=== PATIENT | female | born 1985 | race Caucasian/White ===

== ENCOUNTER 2020-03-05 13:33 | Outpatient (REF) | payer MEDICAID, SELFPAY | END 2020-03-05 13:34 | disposition home or self-care (01) | LOC: HO.LAB 13:33 | PROVIDERS: PCP Nurse Practitioner Family; Visit Provider Internal Medicine | DX: Z20.828 Contact with and (suspected) exposure to other viral communicable diseases (principal) | CPT/HCPCS: C9803; U0003 ==

== ENCOUNTER 2020-11-25 16:01 | Emergency (ER) | payer MEDICAID, SELFPAY ==
--- NOTE | ~2020-11-25 | CT_ITS ---
EXAMINATION: CT ABDOMEN AND PELVIS WITHOUT CONTRAST CLINICAL INFORMATION: Flank pain. UTI. Question kidney stones. COMPARISON: None TECHNIQUE: Multidetector volumetric imaging was performed from the superior aspect of the liver through the pubic symphysis. Sagittal and coronal reformatted images were obtained on the technologist's workstation. This CT examination was performed using dose optimization techniques as appropriate, variously including the following: *Automated exposure control *Adjustment of mA and/or kV according to patient size (this includes techniques or standardized protocols for targeted exams where dose is matched to indication/reason for exam; i.e. extremities or head) *Use of iterative reconstruction technique DLP: 644 mGy-cm FINDINGS: LUNG BASES: The visualized lung bases are unremarkable. LIVER, GALLBLADDER, AND BILIARY TREE: Relative hypoattenuation of the hepatic parenchyma is consistent with steatosis. The liver has a normal contour. No focal lesions are identified on this unenhanced study. No biliary ductal dilatation. PANCREAS: Unremarkable. SPLEEN: Unremarkable. ADRENAL GLANDS: Unremarkable. KIDNEYS AND URETERS: There are numerous punctate renal calculi in both kidneys with well-defined calcifications along the renal pyramids, concerning for early changes of medullary calcinosis. These calculi measure 1 to 2 mm in diameter . No appreciable hydronephrosis or hydroureter. There is mild peripelvic fat stranding at the left kidney. No significant perinephric fat surrounding. Kidneys are normal in size with normal cortical thickness. No focal renal lesions are identified. BLADDER: Decompressed. GASTROINTESTINAL TRACT: Stomach, small bowel, and colon are normal in caliber. No bowel wall thickening. Appendix is normal. No intra-articular free fluid or free air. ABDOMINAL WALL: No significant hernia is appreciated. LYMPH NODES: There are multiple bilateral enlarged pelvic lymph nodes, measuring up to 2 cm in diameter at the right pelvic sidewall (image 74 of series 3) and 1.7 cm at the left. There is a 1.2 cm left common iliac node. Multiple smaller subcentimeter mesenteric and retroperitoneal nodes are identified. VASCULAR: Unremarkable. PELVIC VISCERA: IUD is present in the endometrial canal. There is a left side Essure device. No adnexal lesions are identified. A surgical clip is present in the left in the pelvis. OSSEOUS STRUCTURES: No acute osseous abnormalities. 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 CT/CT abdomen pelvis wo con IMPRESSION: 1. Numerous punctate bilateral renal calculi with renal medullary calcifications, raising the possibility of medullary nephrocalcinosis. No appreciable obstructing stones. 2. Mild peripancreatic stranding at the left renal pelvis which could be due to a recently passed stone. A urinary tract infection could also produce this appearance. 3. Multiple bilateral enlarged pelvic lymph nodes 4. Hepatic steatosis.
[2020-11-25 17:26] VITALS: BP 127/80; PULSE 84; RESP 18; TEMP 36.1; O2SAT 98; BMI 35.9
[2020-11-25 17:47] LABS: Glucose, Whole Blood 160 mg/dL (60-115)
[2020-11-25 18:44] LABS: MANUAL DIFF FLAG NO
[2020-11-25 18:46] LABS: Basophils Percent Auto 0.3 % (0-2); Eosinophils Absolute Auto 0.1 X10*3/uL (0.0-0.4); Hematocrit 43.1 % (37-47); Hemoglobin 14.9 g/dl (12.0-16.0); Imm Gran Abs Auto 0.03 X10*3/uL (0.00-0.03); Imm Gran Pct Auto 0.3 % (0.0-0.4); Lymphocytes Absolute Auto 1.4 X10*3/uL (1.2-4.9); Lymphocytes Percent Auto 15.8 % (20-40); Mean Corpuscular HGB Conc 34.6 g/dl (31.0-35.0); Mean Corpuscular Hemoglobin 32.1 pg (27.0-33.0); Mean Corpuscular Volume 92.9 fL (80-98); Monocytes Absolute Auto 0.6 X10*3/uL (0.1-1.2); Monocytes Percent Auto 7.1 % (2-11); Neutrophils Absolute Auto 6.5 X10*3/uL (2.0-8.3); Neutrophils Percent Auto 75.5 % (45-73); Platelet Count 267 X10*3/uL (160-400); Red Blood Count 4.64 X10*6/uL (4.20-5.50); Red Cell Distribution Width 12.2 % (11.0-16.0); White Blood Count 8.6 X10*3/uL (4.8-10.8)
[2020-11-25 18:47] LABS: Appearance Urine HAZY; Color Urine YELLOW; Glucose Urine UA NEG (NEG); Leukocyte Esterase Urine 3+ (NEG); Nitrite Urine NEG (NEG); Specific Gravity - Urine 1.015 (1.005-1.025); UACC Culture Trigger YES; Urine Blood 2+ (NEG); Urine Ketones 5 MG/DL (NEG); Urine Protein 1+ MG/DL (NEG-TRACE)
[2020-11-25 18:49] LABS: UPreg QC Valid YES; Urine Pregnancy NEGATIVE (NEGATIVE)
[2020-11-25 18:53] LABS: Bacteria Urine 2+ /LPF
[2020-11-25 19:22] LABS: Alanine Aminotransferase 42 U/L (0-31); Albumin Level 4.1 g/dL (3.5-5.0); Alkaline Phosphatase 72 U/L (39-117); Anion Gap 16 (12-20); Aspartate Amino Transferase 30 U/L (5-31); Bilirubin Total 0.7 mg/dL (0.0-1.0); Blood Urea Nitrogen 13 mg/dL (9-16); Calcium 9.3 mg/dL (8.4-10.2); Carbon Dioxide 26 mmol/L (22-29); Chloride 101 mmol/L (96-108); Creatinine Clr Calc Pharmacy 94.8; Estimated Glomerular Filt Rate > 60; Glucose Random 242 mg/dL (60-115); Potassium 3.6 mmol/L (3.3-5.1); Sodium 139 mmol/L (135-145); Total Protein 6.9 g/dL (6.5-8.0)
--- NOTE | 2020-11-25 19:35 | ED.FEMALEGU ---
HPI - Female Genitourinary General Chief complaint: Urogenital-Female Stated complaint: kidney infection Time Seen by Provider: 11/25/20 22:12 Source: patient Mode of arrival: ambulatory Limitations: no limitations History of Present Illness HPI Narrative: Patient presents to the ED for neck flank pain, dysuria, and vomiting. Patient recently diagnosed with UTI this past Wednesday on Macrobid and states 2 days after she had nausea and vomiting and flank pain and her PCP told to come to the ED for further evaluation. Patient admits to history of kidney stones in the past. Patient states present she feels better and not in any distress. MD elicited complaint: dysuria and UTI Related Data Previous Rx's Medication Instructions Recorded cefpodoxime 200 mg tablet 200 mg PO BID 10 Days #20 tab 11/25/20 naproxen 500 mg tablet 500 mg PO BID PRN #20 tab 11/25/20 Allergies Allergy/AdvReac Type Severity Reaction Status Date / Time No Known Allergies Allergy Verified 11/25/20 17:25 [No Known Allergies*] Review of Systems Review of Systems: Yes all other systems are reviewed and are negative Constitutional: Constitutional: Reports as per HPI and Reports no additional constitutional complaints Eyes: Eyes: Reports as per HPI and Reports no additional eye complaints ENT: Reports system reviewed and no additional complaints, except as documented and Reports as per HPI Cardiovascular: Cardiovascular: Reports as per HPI and Reports no additional cardiovascular complaints Respiratory: Respiratory: Reports as per HPI and Reports no additional respiratory complaints Gastrointestinal: Gastrointestinal: Reports as per HPI, Reports no additional gastrointestinal complaints, Reports abdominal pain (Left flank pain), Reports nausea (Resolved) and Reports vomiting (Resolved) Genitourinary: Genitourinary: Reports dysuria Comments: Diagnosis UTI Musculoskeletal: Musculoskeletal: Reports back pain (Flank pain) Neurologic: Reports system reviewed and no additional complaints, except as documented and Reports as per HPI Psychiatric: Psychiatric: Reports no additional psychiatric complaints and Reports as per HPI [facility] Past Medical History Medical History (Updated 11/25/20 @ 22:20 by SHAHRZAD Wallace) Diabetes Social History Social History Advance Directives: No Advance Directives Information Provided: Yes Patient : No Physical Exam Vital Signs: Vital Signs: Last Vital Signs Temp 100.0 F 11/25/20 20:06 Pulse 92 11/25/20 20:06 Resp 16 08/02/21 20:06 BP 118/74 11/25/20 20:06 Pulse Ox 98 11/25/20 20:06 Body Mass Index 35.9 Const: General: cooperative, healthy appearing, comfortable, no acute distress, well developed, alert and awake Orientation/consciousness: patient oriented x3 HENMT: Head: Yes normal to inspection, Yes No palpable skull fracture present, Yes normocephalic, Yes atraumatic and No abrasion Ears: hearing grossly normal bilaterally and external ears normal Eyes: General: appearance normal, both eyes and all related structures Neck: Neck: Yes normal visual inspection and Yes full ROM Chest: Chest palpation & inspection: normal inspection of the chest and normal palpation of entire chest wall Resp: Effort & Inspection: normal respiratory effort and able to speak in complete sentences Cardio: Jugular venous distension: no JVD Heart sounds: S1 normal heart sound present and S2 normal heart sound present GI: Inspection: Yes normal to inspection and No abdominal wall ecchymosis Palpation (GI): Soft to palpation, not firm, nontender, no guarding and not rigid : General: No CVA tenderness and Yes no CVA tenderness Back/Spine/Pelvis: Back: no CVA tenderness, No CVA tenderness and No back tenderness Skin: General skin exam: no rashes or lesions noted and elasticity normal Neuro: General: patient oriented x3, gait normal and CN's II-XI intact bilaterally Cranial nerves: Yes CN's II-XII intact bilaterally Extrem: General: Yes normal to inspection and Yes full ROM Course Course Course Narrative: Patient had a rapid medical screening done. Reevaluation(s) Reevaluation #1: Patient is not any distress. Negative failure white blood cell count per urine shows UTI. Was sent for CT abdomen to check for kidney stone. Presently patient on any distress watching television. Time: 07:59 Reevaluation #2: Patient negative for white blood cell count. CT scan negative for any ureteral stone. CT scan states she might have passed the stones. Patient will be discharged with cefuroxime. Mild pyelonephritis Time: 22:16 Reevaluation #3: Went to the room to discuss results with patient and she was no longer in the room. Nurse states patient eloped. Discharge papers were already prepared. Patient eloped before receiving discharge papers and prescriptions. Time: 22:18 MDM - Female Genitourinary MDM Narrative Medical decision making narrative: UTI. Mild pyelonephritis Lab Data Result diagrams: 11/25/20 18:41 11/25/20 18:41 Labs: Lab Results 11/25/20 11/25/20 11/25/20 Range/Units 17:28 18:40 18:40 WBC (4.8-10.8) X10*3/uL RBC (4.20-5.50) X10*6/uL Hgb (12.0-16.0) g/dl Hct (37-47) % MCV (80-98) fL MCH (27.0-33.0) pg MCHC (31.0-35.0) g/dl RDW (11.0-16.0) % Plt Count (160-400) X10*3/uL MPV (9.4-12.3) fL Immature Gran % (Auto) (0.0-0.4) % Neut % (Auto) (45-73) % Lymph % (Auto) (20-40) % [place] % (Auto) (2-11) % Eos % (Auto) (0-4) % Baso % (Auto) (0-2) % Lymph # (Auto) (1.2-4.9) X10*3/uL [place] # (Auto) (0.1-1.2) X10*3/uL Eos # (Auto) (0.0-0.4) X10*3/uL Baso # (Auto) (0.0-0.2) X10*3/uL Abs Immat Gran (auto) (0.00-0.03) X10*3/uL Absolute Neuts (auto) (2.0-8.3) X10*3/uL Absolute Nucleated RBC (0.0-0.012) X10*3/uL Nucleated RBC % (auto) (0.0-0.2) /100WBC Sodium (135-145) mmol/L Potassium (3.3-5.1) mmol/L Chloride (96-108) mmol/L Carbon Dioxide (22-29) mmol/L Anion Gap (12-20) BUN (9-16) mg/dL Creatinine (0.5-1.4) mg/dL Estim Creat Clear Calc Estimated GFR POC Glucose 160 H (60-115) mg/dL Random Glucose (60-115) mg/dL Calcium (8.4-10.2) mg/dL Total Bilirubin (0.0-1.0) mg/dL AST (5-31) U/L ALT (0-31) U/L Alkaline Phosphatase (39-117) U/L Total Protein (6.5-8.0) g/dL Albumin (3.5-5.0) g/dL Urine Color YELLOW Urine Appearance HAZY Urine pH 6.0 (5.0-8.0) Ur Specific [place] 1.015 (1.005-1.025) Urine Protein 1+ H (NEG-TRACE) MG/DL Urine Glucose (UA) NEG (NEG) MG/DL Urine Ketones 5 (NEG) MG/DL Urine Blood 2+ H (NEG) Urine Nitrite NEG (NEG) Ur Leukocyte Esterase 3+ H (NEG) Urine RBC 1-4 (0) /HPF Urine WBC 15-29 H (0-4) /HPF Ur Squamous Epith Cells NONE /LPF Urine Bacteria 2+ /LPF Urine Test NEGATIVE (NEGATIVE) 11/25/20 11/25/20 Range/Units 18:41 18:41 WBC 8.6 (4.8-10.8) X10*3/uL RBC 4.64 (4.20-5.50) X10*6/uL Hgb 14.9 (12.0-16.0) g/dl Hct 43.1 (37-47) % MCV 92.9 (80-98) fL MCH 32.1 (27.0-33.0) pg MCHC 34.6 (31.0-35.0) g/dl RDW 12.2 (11.0-16.0) % Plt Count 267 (160-400) X10*3/uL MPV 10.0 (9.4-12.3) fL Immature Gran % (Auto) 0.3 (0.0-0.4) % Neut % (Auto) 75.5 H (45-73) % Lymph % (Auto) 15.8 L (20-40) % [place] % (Auto) 7.1 (2-11) % Eos % (Auto) 1.0 (0-4) % Baso % (Auto) 0.3 (0-2) % Lymph # (Auto) 1.4 (1.2-4.9) X10*3/uL [place] # (Auto) 0.6 (0.1-1.2) X10*3/uL Eos # (Auto) 0.1 (0.0-0.4) X10*3/uL Baso # (Auto) 0.0 (0.0-0.2) X10*3/uL Abs Immat Gran (auto) 0.03 (0.00-0.03) X10*3/uL Absolute Neuts (auto) 6.5 (2.0-8.3) X10*3/uL Absolute Nucleated RBC 0.000 (0.0-0.012) X10*3/uL Nucleated RBC % (auto) 0.0 (0.0-0.2) /100WBC Sodium 139 (135-145) mmol/L Potassium 3.6 (3.3-5.1) mmol/L Chloride 101 (96-108) mmol/L Carbon Dioxide 26 (22-29) mmol/L Anion Gap 16 (12-20) BUN 13 (9-16) mg/dL Creatinine 0.81 (0.5-1.4) mg/dL Estim Creat Clear Calc 94.8 Estimated GFR > 60 POC Glucose (60-115) mg/dL Random Glucose 242 H (60-115) mg/dL Calcium 9.3 (8.4-10.2) mg/dL Total Bilirubin 0.7 (0.0-1.0) mg/dL AST 30 (5-31) U/L ALT 42 H (0-31) U/L Alkaline Phosphatase 72 (39-117) U/L Total Protein 6.9 (6.5-8.0) g/dL Albumin 4.1 (3.5-5.0) g/dL Urine Color Urine Appearance Urine pH (5.0-8.0) Ur Specific Chester (1.005-1.025) Urine Protein (NEG-TRACE) MG/DL Urine Glucose (UA) (NEG) MG/DL Urine Ketones (NEG) MG/DL Urine Blood (NEG) Urine Nitrite (NEG) Ur Leukocyte Esterase (NEG) Urine RBC (0) /HPF Urine WBC (0-4) /HPF Ur Squamous Epith Cells /LPF Urine Bacteria /LPF Urine Test (NEGATIVE) Discharge Plan Discharge Clinical Impression: Pyelonephritis Patient Disposition: Home, Self-Care Instructions: Urinary Tract Infection in Women (ED), Kidney Infection (ED) Additional Instructions: Him blood work came back normal. Your urine shows a UTI. CT scan states you might have passed a stone versus mild kidney infection. He will be discharged with stronger antibiotics. Return to the ED for any nausea, vomiting, fever, chills, severe abdominal pain, hematuria, weakness, or any other concerning symptoms. Please follow up with PCP. Prescriptions: New cefpodoxime 200 mg tablet 200 mg PO BID 10 Days Qty: 20 RF: 0 naproxen 500 mg tablet 500 mg PO BID PRN (Reason: pain) Qty: 20 RF: 0 Stand Alone Forms: Work/School Release Interventions: ED Discharge Assessment Last Done: 11/25/20 22:29 Discharge Date/Time: 11/25/20 22:30 Print Language: Bolivian
[2020-11-25 20:06] VITALS: BP 118/74; PULSE 92; RESP 16; TEMP 37.8; O2SAT 98
== END 2020-11-25 22:30 | disposition home or self-care (01) ==
PROVIDERS: Emergency Provider Emergency Medicine
DX: N12 Tubulo-interstitial nephritis, not specified as acute or chronic (principal); E11.9 Type 2 diabetes mellitus without complications
CPT/HCPCS: 36415; 74176; 80053; 81001; 81025; 82947; 85025; 87086; 87088; 87186; 99283; 99284

== ENCOUNTER 2021-11-25 08:18 | Outpatient (REF) | payer MEDICAID, SELFPAY | END 2021-11-25 08:19 | disposition home or self-care (01) | LOC: HO.HOSX 08:18 | PROVIDERS: Visit Provider Physician Assistant | DX: Z13.89 Encounter for screening for other disorder (principal) ==

== ENCOUNTER 2021-12-29 18:06 | Emergency (ER) | payer MEDICAID, SELFPAY ==
[2021-12-29 18:08] VITALS: BP 143/79; PULSE 80; RESP 18; TEMP 36.7; O2SAT 96; BMI 29.6
[2021-12-29 18:15] LABS: MANUAL DIFF FLAG NO
[2021-12-29 18:18] LABS: Basophils Absolute Auto 0.1 X10*3/uL (0.0-0.2); Basophils Percent Auto 0.8 % (0-2); Eosinophils Absolute Auto 0.1 X10*3/uL (0.0-0.4); Hematocrit 41.9 % (37.0-47.0); Hemoglobin 14.1 g/dl (12.0-16.0); Imm Gran Abs Auto 0.01 X10*3/uL (0.00-0.03); Imm Gran Pct Auto 0.2 % (0.0-0.4); Lymphocytes Absolute Auto 1.3 X10*3/uL (1.2-4.9); Lymphocytes Percent Auto 20.7 % (20-40); Mean Corpuscular HGB Conc 33.7 g/dl (31.0-35.0); Mean Corpuscular Hemoglobin 31.7 pg (27.0-33.0); Mean Corpuscular Volume 94.2 fL (80.0-98.0); Mean Platelet Volume 10.6 fL (9.4-12.3); Monocytes Absolute Auto 0.5 X10*3/uL (0.1-1.2); Monocytes Percent Auto 7.3 % (2-11); Neutrophils Absolute Auto 4.3 x10*3/uL (2.0-8.3); Platelet Count 287 X10*3/uL (160-400); Red Blood Count 4.45 X10*6/uL (4.20-5.50); Red Cell Distribution Width 12.3 % (11.0-16.0); White Blood Count 6.1 X10*3/uL (4.8-10.8)
[2021-12-29 18:36] LABS: Alanine Aminotransferase 19 U/L (0-31); Alkaline Phosphatase 39 U/L (39-117); Anion Gap 15 (12-20); Aspartate Amino Transferase 15 U/L (5-31); Bilirubin Total 0.4 mg/dL (0.0-1.0); Blood Urea Nitrogen 11 mg/dL (9-16); Calcium 9.1 mg/dL (8.4-10.2); Carbon Dioxide 23 mmol/L (22-29); Chloride 104 mmol/L (96-108); Estimated Glomerular Filt Rate > 60; Glucose Random 197 mg/dL (60-115); Potassium 4.1 mmol/L (3.3-5.1); Sodium 138 mmol/L (135-145); Total Protein 6.9 g/dL (6.5-8.0)
[2021-12-29] MEDS: Acetaminophen 325 MG TABLET 650 MG PO (19:38)
== END 2021-12-29 21:52 | disposition left against medical advice (07) ==
PROVIDERS: Emergency Provider Emergency Medicine; PCP Nurse Practitioner Family
DX: R10.9 Unspecified abdominal pain (principal); Z87.442 Personal history of urinary calculi
CPT/HCPCS: 36415; 80053; 85025; 99282; 99283

== ENCOUNTER 2022-01-01 09:34 | Emergency (ER) | payer MEDICAID, SELFPAY ==
[2022-01-01 09:50] VITALS: BP 135/78; PULSE 88; RESP 16; TEMP 37.2; O2SAT 99; BMI 28.9
[2022-01-01 10:21] LABS: Appearance Urine Hazy; Color Urine Yellow; Glucose Urine UA Negative (Negative); Leukocyte Esterase Urine Negative (Negative); Nitrite Urine Negative (Negative); Specific Gravity - Urine 1.025 (1.005-1.025); Urine Blood Small (1+) (Negative); Urine Ketones >=80 mg/dL (Negative); Urine Protein 30 (1+) mg/dL (Neg-Trace)
[2022-01-01 10:36] LABS: Bacteria Urine 1+ (None Seen); Hyaline Casts Urine 0-2 /LPF (0-2); Squamous Epithelial Cell Urine >20 /HPF (0-2)
[2022-01-01 12:12] LABS: Glucose, Whole Blood 185 mg/dL (60-115)
[2022-01-01 12:31] LABS: MANUAL DIFF FLAG NO
[2022-01-01 12:39] LABS: Basophils Percent Auto 0.4 % (0-2); Eosinophils Absolute Auto 0.1 X10*3/uL (0.0-0.4); Eosinophils Percent Auto 0.7 % (0-4); Hematocrit 40.3 % (37.0-47.0); Hemoglobin 13.6 g/dl (12.0-16.0); Imm Gran Abs Auto 0.03 X10*3/uL (0.00-0.03); Imm Gran Pct Auto 0.4 % (0.0-0.4); Lymphocytes Absolute Auto 1.2 X10*3/uL (1.2-4.9); Lymphocytes Percent Auto 16.9 % (20-40); Mean Corpuscular HGB Conc 33.7 g/dl (31.0-35.0); Mean Corpuscular Hemoglobin 31.9 pg (27.0-33.0); Mean Corpuscular Volume 94.6 fL (80.0-98.0); Mean Platelet Volume 10.6 fL (9.4-12.3); Monocytes Absolute Auto 0.7 X10*3/uL (0.1-1.2); Neutrophils Absolute Auto 5.1 x10*3/uL (2.0-8.3); Neutrophils Percent Auto 71.6 % (45-73); Platelet Count 227 X10*3/uL (160-400); Red Blood Count 4.26 X10*6/uL (4.20-5.50); Red Cell Distribution Width 12.5 % (11.0-16.0); White Blood Count 7.1 X10*3/uL (4.8-10.8)
[2022-01-01 12:42] LABS: Prothrombin Time 11.9 SEC (10.0-13.1)
[2022-01-01 12:51] LABS: Alanine Aminotransferase 14 U/L (0-31); Albumin Level 3.8 g/dL (3.5-5.0); Alkaline Phosphatase 44 U/L (39-117); Anion Gap 16 (12-20); Aspartate Amino Transferase 11 U/L (5-31); Bilirubin Total 0.5 mg/dL (0.0-1.0); Blood Urea Nitrogen 13 mg/dL (9-16); Calcium 9.1 mg/dL (8.4-10.2); Carbon Dioxide 24 mmol/L (22-29); Chloride 102 mmol/L (96-108); Creatinine Clr Calc Pharmacy 60.6; Estimated Glomerular Filt Rate 54; Glucose Random 204 mg/dL (60-115); Magnesium 1.8 mg/dL (1.6-2.6); Potassium 4.1 mmol/L (3.3-5.1); Sodium 138 mmol/L (135-145); Total Protein 6.6 g/dL (6.5-8.0)
== END 2022-01-01 21:23 | disposition left against medical advice (07) ==
PROVIDERS: Physician Assistant Medical; Emergency Provider Emergency Medicine; PCP Nurse Practitioner Family
DX: R10.32 Left lower quadrant pain (principal); R31.9 Hematuria, unspecified; Z79.899 Other long term (current) drug therapy
CPT/HCPCS: 36415; 80053; 81001; 82947; 83735; 85025; 85610; 99282; 99283

== ENCOUNTER 2022-03-24 11:21 | Outpatient (REF) | payer MEDICAID, SELFPAY ==
[2022-03-24 12:02] LABS: COVID-19 Test Positive (Negative); IDNOW Serial# 9DB6401D
== END 2022-03-24 11:22 | disposition home or self-care (01) ==
LOC: HO.LAB 11:21
PROVIDERS: Visit Provider Internal Medicine
DX: Z20.822 Contact with and (suspected) exposure to COVID-19 (principal)
CPT/HCPCS: 87635; C9803

== ENCOUNTER 2022-03-30 10:11 | Outpatient (REF) | payer MEDICAID, SELFPAY ==
[2022-03-30 10:56] LABS: COVID-19 Test Negative (Negative); IDNOW Serial# BCCEAD1C
== END 2022-03-30 10:12 | disposition home or self-care (01) ==
LOC: HO.LAB 10:11
PROVIDERS: Visit Provider Internal Medicine
DX: Z20.822 Contact with and (suspected) exposure to COVID-19 (principal)
CPT/HCPCS: 87635; C9803

== ENCOUNTER 2022-07-21 18:07 | Outpatient (REF) | payer MEDICAID, SELFPAY ==
--- NOTE | ~2022-07-21 | MR_ITS ---
EXAMINATION: MR KNEE WITHOUT CONTRAST, RIGHT CLINICAL INFORMATION: Right knee pain, swelling, numbness with walking and weightbearing following injury in May 2022. Evaluate for meniscal tear or internal derangement. COMPARISON: Most recent right knee radiographs dated 04/06/2018. TECHNIQUE: MRI of the knee without contrast was performed using routine sequences on a high-field scanner. FINDINGS: MENISCI: Medial Meniscus: Intact. Lateral Meniscus: Intact. LIGAMENTS: Cruciate: Intact Collateral: Minimal edema adjacent to the distal aspect of the medial collateral ligament which could indicate a minimal grade 1 sprain. Intact fibular collateral ligament. EXTENSOR MECHANISM: Intact quadriceps and patellar tendons. Normal patellofemoral alignment. ARTICULAR CARTILAGE/BONE: Patellofemoral Compartment: Medial trochlea articular cartilage signal heterogeneity with full-thickness fissuring superiorly and mild subchondral cystic change/marrow edema. Articular cartilage signal heterogeneity at the inferior aspect of the medial patellar facet extending centrally. Tiny marginal osteophytes. Medial Compartment: Weightbearing articular cartilage thinning with minimal signal heterogeneity and tiny marginal osteophytes. Lateral Compartment: Intact articular cartilage. JOINT FLUID AND BURSAE: Small joint effusion and trace Bowling's cyst. MR/MR knee RT wo con IMPRESSION: 1. No acute meniscal or ligamentous injury. 2. Possible minimal grade 1 sprain of the medial collateral ligament. 3. 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 Small joint effusion and trace Bowling's cyst.
== END 2022-07-21 18:08 | disposition home or self-care (01) ==
LOC: HO.MRI 18:07
PROVIDERS: PCP Nurse Practitioner Family; Visit Provider Emergency Medicine
DX: S89.91XA Unspecified injury of right lower leg, initial encounter (principal); X58.XXXA Exposure to other specified factors, initial encounter; Y93.9 Activity, unspecified; Y92.9 Unspecified place or not applicable; Y99.9 Unspecified external cause status
CPT/HCPCS: 73721

== ENCOUNTER 2022-07-29 11:58 | Outpatient (REF) | payer MEDICAID, SELFPAY ==
--- NOTE | ~2022-07-29 | XR_ITS ---
EXAMINATION: XR KNEE, LEFT CLINICAL INFORMATION: Reason for Exam left knee instability with popping out COMPARISON: None TECHNIQUE: 4 views of the knee FINDINGS: No acute fracture or dislocation. Minimal degenerative changes of the knee with spurring of the tibial spines and tiny patellofemoral osteophyte.. No joint effusion. Soft tissues are unremarkable. XR/XR knee LT 4V IMPRESSION: * No acute osseous abnormality. * Minimal degenerative changes of the knee.
== END 2022-07-29 11:59 | disposition home or self-care (01) ==
LOC: HO.XRAY 11:58
PROVIDERS: Absent Provider Nurse Practitioner Family; PCP Nurse Practitioner Family; Visit Provider Emergency Medicine
DX: M25.562 Pain in left knee (principal)
CPT/HCPCS: 73564

== ENCOUNTER 2022-12-11 | Outpatient (REF) | payer MEDICAID, SELFPAY | END 2022-12-11 00:01 | disposition home or self-care (01) | LOC: HO.HHCLNP | PROVIDERS: Visit Provider Registered Nurse | DX: Z13.89 Encounter for screening for other disorder (principal) ==

== ENCOUNTER 2022-12-11 18:35 | Outpatient (REF) | payer MEDICAID, SELFPAY | END 2022-12-11 18:36 | disposition home or self-care (01) | LOC: HO.HHCLNP 18:35 | PROVIDERS: Visit Provider Registered Nurse | DX: Z13.89 Encounter for screening for other disorder (principal) | CPT/HCPCS: 81001 ==

== ENCOUNTER 2022-12-14 16:23 | Outpatient (REF) | payer MEDICAID, SELFPAY | END 2022-12-14 16:24 | disposition home or self-care (01) | LOC: HO.HHCL 16:23 | PROVIDERS: Visit Provider Registered Nurse | DX: N12 Tubulo-interstitial nephritis, not specified as acute or chronic (principal) | CPT/HCPCS: 87086 ==

== ENCOUNTER 2023-03-07 15:03 | Emergency (ER) | payer MEDICAID, SELFPAY ==
--- NOTE | ~2023-03-07 | XR_ITS ---
EXAMINATION: XR THORACIC SPINE, 3 VIEWS XR LUMBAR SPINE, 3 VIEWS CLINICAL INFORMATION: Pain fall COMPARISON: None available. TECHNIQUE: 3 views of the thoracic spine 3 views of the lumbar spine FINDINGS: 5 nonrib-bearing lumbar-type vertebral bodies. No acute visible fracture or dislocation. Mild multilevel degenerative changes with disc space narrowing osteophyte formation and slight facet arthropathy. Vertebral body heights and spaces are otherwise maintained. Posterior elements are intact. Paraspinal soft tissues are unremarkable. Right upper abdomen surgical clips. Left fallopian tube occlusion device. Bowel gas is unremarkable. Visualized portions of the chest are unremarkable. XR/XR thoracic spine 2V IMPRESSION: 1. No acute visible fracture or dislocation. 2. Mild multilevel degenerative changes.
--- NOTE | ~2023-03-07 | XR_ITS ---
EXAMINATION: XR THORACIC SPINE, 3 VIEWS XR LUMBAR SPINE, 3 VIEWS CLINICAL INFORMATION: Pain fall COMPARISON: None available. TECHNIQUE: 3 views of the thoracic spine 3 views of the lumbar spine FINDINGS: 5 nonrib-bearing lumbar-type vertebral bodies. No acute visible fracture or dislocation. Mild multilevel degenerative changes with disc space narrowing osteophyte formation and slight facet arthropathy. Vertebral body heights and spaces are otherwise maintained. Posterior elements are intact. Paraspinal soft tissues are unremarkable. Right upper abdomen surgical clips. Left fallopian tube occlusion device. Bowel gas is unremarkable. Visualized portions of the chest are unremarkable. XR/XR lumbar spine 2-3V IMPRESSION: 1. No acute visible fracture or dislocation. 2. Mild multilevel degenerative changes.
[2023-03-07 15:08] VITALS: BP 125/69; PULSE 82; RESP 18; TEMP 36.8; O2SAT 100; BMI 32.1
--- NOTE | 2023-03-07 15:08 | ED_ITS ---
HPI - General Adult General Chief complaint: Back Pain/Injury Stated complaint: back pain s/p fall 03/05 Time Seen by Provider: 03/07/23 15:21 Source: patient Mode of arrival: ambulatory Limitations: no limitations History of Present Illness HPI narrative: patient is a 37-year-old female who presents emergency department for evaluation after a mechanical trip and fall. Reports 2 days ago she was walking down the stairs, she missed a step resulting in a fall backwards striking her back against the stairs. She has pain diffusely across the upper back predominately between the shoulder blades worsened with movement of the arms, and diffuse lower back pain that is nonradiating. She denies any head strike or loss. Denies fevers, chills, burning with micturition, urinary frequency/urgency/hesitancy, bladder or bowel dysfunction, numbness or tingling of the perineum or bilateral legs. Denies any recent surgical procedures, any known immune compromising conditions, personal history of cancer, or IV drug usage. She has trialed ibuprofen, Voltaren, topical lidocaine with massage which does alleviate her pain somewhat but not completely. Related Data Previous Rx's Medication Instructions Recorded cefpodoxime 200 mg tablet 200 mg PO BID 10 days #20 tabs 11/25/20 naproxen 500 mg tablet 500 mg PO BID PRN pain #20 tabs 11/25/20 cyclobenzaprine 10 mg tablet 10 mg PO TID PRN muscle spasm #14 03/07/23 tabs Allergies Allergy/AdvReac Type Severity Reaction Status Date / Time No Known Allergies Allergy Verified 11/25/20 17:25 [No Known Allergies*] Review of Systems Review of Systems: Yes all other systems are reviewed and are negative [facility] Past Medical History Attestation statement: The following information was validated with the patient. Source: old records reviewed Medical History Diabetes Social History Social History Advance Directives: No Physical Exam ED Vital Signs: Vital Signs - 24 hr 03/07/23 15:08 Temperature 98.2 F Pulse Rate 82 Respiratory Rate 18 Blood Pressure 125/69 Pulse Oximetry 100 Oxygen Delivery Method Room Air BMI result Body Mass Index 32.1 Appearance: Alert.?Oriented to person, place and time. No acute distress.?Normal affect. Eyes: Pupils equal, round and reactive to light.? ENT: Pharynx normal.?? Neck: Normal inspection.? Neck supple.?? CVS: Heart sounds normal. Normal heart rate and rhythm.? Pulses normal; bilateral radial pulses 2+, bilateral posterior tibial/dorsalis pedis pulses 2+.? Respiratory: No respiratory distress.? Lung sounds clear to auscultation bilaterally?? Abdomen: Soft and non-tender. Normoactive bowel sounds. No pulsatile mass.?? Skin: Skin warm and dry.? Normal skin color.? Normal skin turgor.?? Extremities: No lower extremity edema.? No calf ttp? Back: + tenderness upon palpation of the thoracic paraspinal muscles, mild paraspinal muscular tenderness from lumbar region to coccyx. No CVA tenderness. No midline spinal tenderness, step-off's, or deformity. Full ROM intact in bilateral lower extremities. Straight leg test negative bilaterally. No rashes, lesions, areas of induration or fluctuance, or signs of infection noted., Neuro: Moves all extremities spontaneously. 5/5 strength in hip extension/flexion, abduction, adduction. Sensation to light touch intact bilaterally. Patellar and Achilles reflex 2+ bilaterally. No ataxia, gait normal and steady.. No focal neuro deficits. Course Course Course Narrative: RME performed by Sanjuana Spann PA-C. Patient is a 37 year old assigned female at presenting to the emergency department with back pain after a fall on 03/05/2023. Imaging ordered. Patient placed back in the waiting room pending room availability and results. Medications Administered Discontinued Medications Generic Name Dose Route Start Last Admin Trade Name Freq PRN Reason Stop Dose Admin Cyclobenzaprine HCl 10 mg 03/07/23 16:05 03/07/23 16:08 Cyclobenzaprine Hcl 10 Mg Tablet PO 03/07/23 16:06 10 mg ONCE ONE Administration Medical Decision Making Medical Decision Making MDM Narrative: Patient is a 37-year-old female who presents emergency department for evaluation of traumatic thoracic and lumbar back pain after fall on the stairs. No head injury or loss of consciousness, no focal neurological deficits. At in, in a suspect that Pain is most consistent with muscular pain, although cannot complet judah exclude herniated disc. On neurological exam there are no deficits. Not consistent with spinal fracture, spinal infection, epidural abscess, AAA, epidural abscess, or dissection. No high risk past medical history including incontinence, fever, immunosuppression, recent surgery or lumbar puncture, coagulopathy, recent unintentional weight loss, pulsatile mass, history of cancer, history of TB, history of IV drug use that would warrant MRI or CT. Not consistent with ectopic , pyelonephritis, urinary tract infection, renal calculi, pelvic infection, appendicitis, diverticulitis. On exam no concern for cauda equina syndrome. XR of the thoracic and lumbar spine no evidence of acute fracture or subluxation, mild degenerative disease is present. No additional imaging is currently indicated at this time. Received cyclobenzaprine in the emergency department With significant improvement in pain. Plan for discharge home with Prescription for flex, and follow-up with primary care provider, and patient agreed with plan. Differential Diagnosis Differential Diagnoses: The differential diagnosis associated with the presentation includes (As noted above) Admission/Observation Consideration of admission/observation: Escalation of care including admission/observation considered Independent Interpretation I performed an independent interpretation of an: Plain X-Ray (I personally interpreted XR imaging and agree with radiologist impression.) Interpretation: XR/XR thoracic spine 2V IMPRESSION: 1. No acute visible fracture or dislocation. 2. Mild multilevel degenerative changes. XR/XR lumbar spine 2-3V IMPRESSION: 1. No acute visible fracture or dislocation. 2. Mild multilevel degenerative changes. Independent Historian Clinical information obtained from an independent historian. History obtained from or confirmed by: Spouse (Present at bedside who confirms history) External Record Review External record reviewed: Outpatient record Prescription Management I considered prescription management with: Pain Medication Discharge Plan Discharge Clinical Impression: Thoracic back pain, Strain of lumbar region Patient Disposition: Home, Self-Care Instructions: Acute Low Back Pain (ED), Lower Back Exercises (ED) Additional Instructions: You can take ibuprofen 200 mg, 3 tablets (600mg) every 6-8 hours as needed for pain, in addition to Tylenol 500 mg, 2 tablets (1,000mg) every 4-6 hours as needed for pain, but not to exceed 3 doses daily (3,000mg).? I have sent prescription for the muscle relaxer, cyclobenzaprine / Flexeril to your pharmacy. Take this as needed for pain unrelieved by acetaminophen and ibuprofen. You should not drive, drink alcohol, or work while taking this medication as it may make you drowsy. Continue using ice/heat to the area, massage, and topical creams Contact your primary care provider to arrange for a follow-up visit for persistent symptoms. You may always return back to emergency department any new or worsening symptoms or concerns. Prescriptions: New cyclobenzaprine 10 mg tablet 10 mg PO TID PRN (Reason: muscle spasm) Qty: 14 0RF No Action cefpodoxime 200 mg tablet 200 mg PO BID 10 Days Qty: 20 0RF Rx Instructions: must administer with a meal/food naproxen 500 mg tablet 500 mg PO BID PRN (Reason: pain) Qty: 20 0RF Referrals: [facility] [Primary Care Provider] -
[2023-03-07] MEDS: Cyclobenzaprine HCl 10 MG TABLET PO (16:08)
== END 2023-03-07 17:09 | disposition home or self-care (01) ==
PROVIDERS: Emergency Provider Emergency Medicine Emergency Medical Services
DX: M54.6 Pain in thoracic spine (principal); S39.012A Strain of muscle, fascia and tendon of lower back, initial encounter; W10.8XXA Fall (on) (from) other stairs and steps, initial encounter; E11.9 Type 2 diabetes mellitus without complications; Y93.89 Activity, other specified; Y92.9 Unspecified place or not applicable; Y99.9 Unspecified external cause status
CPT/HCPCS: 72070; 72100; 99283

== ENCOUNTER 2023-03-10 09:51 | Outpatient (REF) | payer MEDICAID, SELFPAY ==
[2023-03-10 12:04] LABS: TSH reflex Free T4 0.92 uIU/mL (0.32-4.0)
== END 2023-03-10 09:52 | disposition home or self-care (01) ==
LOC: HO.HHCL 09:51
PROVIDERS: Visit Provider Advanced Practice Midwife
DX: N92.6 Irregular menstruation, unspecified (principal)
CPT/HCPCS: 36415; 84443

== ENCOUNTER 2023-03-30 10:39 | Outpatient (AMB) | payer MEDICAID, SELFPAY ==
[2023-03-30 10:55] VITALS: BMI 32.1
--- NOTE | 2023-03-30 10:55 | A.OFFVIS_ITS ---
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 The patient describes her pain as sharp and severe in nature. Most of the pain is along the medial aspect of her knee. Patient states that she 1st injured her left knee approximately 1 year ago when she twisted her knee and felt like her knee ?popped out?. She states that her knee will give out several times per day. She has tried Tylenol and anti- inflammatory medicines which gave her minimal relief. She has had injections in the past which gave her no relief. She has also done physical therapy which aggravated her symptoms. Allergies No Known Allergies [No Known Allergies*] Allergy (Verified 11/25/20 17:25) Medication List - Last Reconciled 03/30/23 by Matthew Cervantes MD acetaminophen ER 650 mg PO Q8H PRN bupropion HCl 300 mg PO QAM cefpodoxime 200 mg PO BID 10 days cetirizine 10 mg PO QAM clonidine HCl 0.1 mg PO BEDTIME cyclobenzaprine 10 mg PO TID PRN dulaglutide (Trulicity) 1.5 mg subcut QWEEK escitalopram oxalate 10 mg PO DAILY hydroxyzine HCl 10 mg PO TID PRN levofloxacin 750 mg PO DAILY naproxen 500 mg PO BID PRN PFSH Medical History (Updated 03/30/23 @ 11:36 by Matthew Cervantes MD) Diabetes Surgical History (Updated 03/30/23 @ 10:59 by Sariah Bacon CMA) Hx of breast reduction, elective Social History (Updated 03/30/23 @ 10:59 by Sariah Bacon CMA) Patient Tobacco Use Status: Never used Tobacco Current occupational status: unemployed Physical Exam Vital Signs: BMI result Body Mass Index 32.1 Const Other: Well-nourished well-developed very friendly female awake alert and oriented x3 in no acute distress Extrem Other: Bilateral lower extremity examination shows good capillary refill, no skin lesions noted, normal sensation light touch Left knee examination shows a minimal effusion, minimal crepitus with range of motion, tenderness along her medial joint line, positive Yasmin's test, no instability Results Reviewed Results Reviewed: X-rays of the patient's left knee show minimal joint space narrowing, no acute bony abnormalities Assessment & Plan Assessment & Plan (1) Left knee pain: Code(s): M25.562 - Pain in left knee Plan Ms. Basilio presents with progressively worsening left knee pain and mechanical symptoms most likely due to a tear of her medial meniscus. Thus, I will send the patient for an MRI of her left knee for further evaluation. I will see her back once the MRI is completed to discuss the findings and treatment options. She will continue with her activity modifications in the meantime. I spent 22 minutes in reviewing the patient's records and imaging studies, kirby g the patient and documenting in the medical record. Orders: Orders MR knee LT wo con Today M25.562 - Pain in left knee Coding Level of Care Code New Pt Level 2 (81535) Diagnoses Left knee pain M25.562
== END 2023-03-30 11:36 | disposition home or self-care (01) ==
PROVIDERS: PCP Nurse Practitioner Family; Visit Provider Orthopaedic Surgery
DX: M25.562 Pain in left knee (principal)
CPT/HCPCS: 99202

== ENCOUNTER → 2023-03-30 10:39 | Outpatient (BNVA) | payer MEDICAID, SELFPAY | PROVIDERS: Visit Provider Orthopaedic Surgery | DX: M25.562 Pain in left knee (principal) | CPT/HCPCS: 99202 ==

== ENCOUNTER 2023-05-06 13:35 | Outpatient (REF) | payer MEDICAID, SELFPAY ==
--- NOTE | ~2023-05-06 | MR_ITS ---
EXAMINATION: MR KNEE WITHOUT CONTRAST, LEFT CLINICAL INFORMATION: Left knee pain COMPARISON: Radiographs 07/29/2022 TECHNIQUE: MRI of the knee without contrast was performed using routine sequences on a high-field scanner. FINDINGS: MENISCI: Medial Meniscus: Intact Lateral Meniscus: Intact LIGAMENTS: Cruciate: Chronic complete ACL tear with resorption. The posterior cruciate ligament is intact. Collateral: Intact EXTENSOR MECHANISM: Intact ARTICULAR CARTILAGE/BONE: Patellofemoral Compartment: Normal Medial Compartment: Minimal peripheral cartilage thinning medially with small marginal osteophytes. Lateral Compartment: Focal cartilage irregularity and central osteophyte of the tibia posteriorly. JOINT FLUID AND BURSAE: Trace joint effusion MR/MR knee LT wo con IMPRESSION: 1. Chronic complete ACL tear with resorption. 2. No meniscal tear. 3. Minimal medial and lateral compartment osteoarthritis with a trace joint effusion.
== END 2023-05-06 13:36 | disposition home or self-care (01) ==
LOC: HO.MRI 13:35
PROVIDERS: Visit Provider Orthopaedic Surgery
DX: M25.562 Pain in left knee (principal)
CPT/HCPCS: 73721

== ENCOUNTER 2023-05-18 11:43 | Outpatient (AMB) | payer MEDICAID, SELFPAY ==
[2023-05-18 11:44] VITALS: BMI 32.1
--- NOTE | 2023-05-18 11:44 | A.OFFVIS_ITS ---
Intake Vital Signs 05/18/23 11:44 Height 5 ft 1 in Weight 170 lb BMI 32.1 Intake Visit Reasons: ov-MRI Knee LT review Intake Note: Iraida is a 37 year old female who presents for an MRI review of her Left knee. The patient states that she 1st injured her left knee as a child. She twisted her knee and it felt like ?my knee popped out?. The patient was treated non operatively at that time. The patient states that approximately 1 year ago she had a similar episode when she twisted her knee. She states that her knee feels unstable and like it is going to ?pop out again?. Allergies No Known Allergies [No Known Allergies*] Allergy (Verified 05/18/23 11:45) Medication List - Last Reconciled 05/18/23 by Matthew Cervantes MD acetaminophen ER 650 mg PO Q8H PRN bupropion HCl 300 mg PO QAM cefpodoxime 200 mg PO BID 10 days cetirizine 10 mg PO QAM clonidine HCl 0.1 mg PO BEDTIME cyclobenzaprine 10 mg PO TID PRN dulaglutide (Trulicity) 1.5 mg subcut QWEEK escitalopram oxalate 10 mg PO DAILY hydroxyzine HCl 10 mg PO TID PRN levofloxacin 750 mg PO DAILY naproxen 500 mg PO BID PRN PFSH Medical History Diabetes Surgical History Hx of breast reduction, elective Social History Patient Tobacco Use Status: Never used Tobacco Current occupational status: unemployed Physical Exam Vital Signs: BMI result Body Mass Index 32.1 Const Other: Well-nourished well-developed very friendly female awake alert and oriented x3 in no acute distress Extrem Other: Bilateral lower extremity examination shows good capillary refill, no skin lesions noted, normal sensation light touch Left knee examination shows a minimal effusion, minimal crepitus with range of motion, no joint line tenderness, positive Matt's test Results Reviewed Results Reviewed: MRI of the patient's left knee shows no evidence of meniscus tearing, there is a chronic anterior cruciate ligament tear Assessment & Plan Assessment & Plan (1) Left knee pain: Code(s): M25.562 - Pain in left knee Plan Ms. Basilio presents with chronic left knee pain and instability due to an anter ior cruciate ligament tear. I had a lengthy discussion with the patient regarding the treatment options. She is interested in proceeding with surgery if she is a candidate. Because I do not perform this type of surgery I will arrange for her to have a follow-up with Dr. Morse to further discuss the risks and benefits of surgical intervention. Feel free to call me at any time should questions regarding her orthopedic management arise. I spent 20 minutes in reviewing the patient's records and imaging studies, seeing the patient and documenting in the medical record. Coding Level of Care Code Est Pt Level 2 (35415) Diagnoses Left knee pain M25.562
== END 2023-05-18 12:12 | disposition home or self-care (01) ==
PROVIDERS: PCP Nurse Practitioner Family; Visit Provider Orthopaedic Surgery
DX: S83.512A Sprain of anterior cruciate ligament of left knee, initial encounter (principal)
CPT/HCPCS: 99213

== ENCOUNTER → 2023-05-18 11:43 | Outpatient (BNVA) | payer MEDICAID, SELFPAY | PROVIDERS: PCP Nurse Practitioner Family; Visit Provider Orthopaedic Surgery | DX: S83.512A Sprain of anterior cruciate ligament of left knee, initial encounter (principal) | CPT/HCPCS: 99212 ==

== ENCOUNTER 2023-05-31 12:14 | Outpatient (AMB) | payer MEDICAID, SELFPAY ==
[2023-05-31 12:16] VITALS: BMI 26.6
--- NOTE | 2023-05-31 12:16 | MHC.OFFVIS ---
Intake Vital Signs 05/31/23 12:16 Height 5 ft 7 in Weight 170 lb BMI 26.6 Intake Visit Reasons: OV-ACL LT knee-discuss surgery? Intake Note: Iraida is a 37 year old female who presents today for a follow up of her left knee. She was last seen with Dr. Cervantes who referred to Dr. Morse to discuss ACL Surgery. Allergies No Known Allergies [No Known Allergies*] Allergy (Verified 05/18/23 11:45) HPI OV-ACL LT knee-discuss surgery? HPI Details Iraida is a 37 year old woman who presents to discuss treatment for her left knee ACL injury. She complains of pain with daily activity, worse with WB and twisting activities. She reports injuring her knee ~1 year ago from a twisting injury. She was last seen by Dr. Cervantes and referred here to discuss surgery. She describes regular and frequent giving way with occasional locking of the left knee. This has been occurring for the past year. She thinks she hurt her left knee many years ago. [facility] Medical History Diabetes Surgical History Hx of breast reduction, elective Social History Patient Tobacco Use Status: Never used Tobacco Current occupational status: unemployed Review of Systems Const All systems reviewed & are unremarkable except as noted in HPI and below Physical Exam Vital Signs: BMI result Body Mass Index 26.6 Const General: no acute distress, alert and awake Orientation/consciousness: patient oriented x3 HEENT Head: Yes normocephalic and Yes atraumatic Eyes EOM: EOMs intact bilaterally Resp Effort & Inspection: normal respiratory effort and able to speak in complete sentences Cardio Jugular venous distension: no JVD Skin General skin exam: turgor normal Rashes: no rashes Neuro General: patient oriented x3 Extrem Other: 2+ Matt's + Pivot shift Psych Appearance: grossly normal Affect: normal affect Attitude: cooperative Results Reviewed Results Reviewed: I personally reviewed the MR images. 1. Chronic complete ACL tear with resorption. 2. No meniscal tear. 3. Minimal medial and lateral compartment osteoarthritis with a trace joint effusion. Assessment & Plan Assessment & Plan (1) ACL (anterior cruciate ligament) tear: Code(s): S83.519A - Sprain of anterior cruciate ligament of unspecified knee, initial encounter Plan: 37 yo F with left knee ACL rupture and symptoms of laxity with occasional locking. I can't rule out an unstable meniscus tear as well. I recommend ACL reconstruction with allograft. I discussed the positibility of meniscal repair and how this would affect her recovery. I stressed the importance of post op PT and the time required for a full recovery. I discussed non operative treatment options. I discussed the risks benefits and alternatives including but not limited to the risk of pain, infection, stiffness, need for further surgery as well as potential medical complications. She expressed understanding and we will proceed forward accordingly. Plan Prepared for Celestine Morse MD by Tony Rosas, medical physics professor, on 05/31/23 at 12:22 PM, EST. Coding Level of Care Code Est Pt Level 4 (91727) Diagnoses ACL (anterior cruciate ligament) tear S83.519A
== END 2023-05-31 12:40 | disposition home or self-care (01) ==
PROVIDERS: PCP Nurse Practitioner Family; Visit Provider Orthopaedic Surgery
DX: S83.512A Sprain of anterior cruciate ligament of left knee, initial encounter (principal)
CPT/HCPCS: 99214

== ENCOUNTER → 2023-05-31 12:14 | Outpatient (BNVA) | payer MEDICAID, SELFPAY | PROVIDERS: PCP Nurse Practitioner Family; Visit Provider Orthopaedic Surgery | DX: S83.512A Sprain of anterior cruciate ligament of left knee, initial encounter (principal) | CPT/HCPCS: 99212 ==

== ENCOUNTER → 2023-06-16 11:17 | Outpatient (BNV) | payer MEDICAID, SELFPAY | PROVIDERS: Visit Provider Orthopaedic Surgery | DX: S83.512A Sprain of anterior cruciate ligament of left knee, initial encounter (principal); S83.212A Bucket-handle tear of medial meniscus, current injury, left knee, initial encounter | CPT/HCPCS: 29882; 29888 ==

== ENCOUNTER → 2023-06-16 11:17 | Day surgery (SDC) | payer MEDICAID, SELFPAY ==
[2023-06-10 13:33] VITALS: BMI 32.1
[2023-06-16] VITALS (9 sets, daily range): BP systolic 104–125; BP diastolic 46–75; PULSE 82–94; RESP 16–18; TEMP 36.1; O2SAT 97–100; BMI 32.6
[2023-06-16 11:35] LABS: UPreg QC Valid YES; Urine Pregnancy NEGATIVE (NEGATIVE)
[2023-06-16] MEDS: Lactated Ringers 1,000 ML 50 ML IVCONT (11:43)
[2023-06-16 11:45] LABS: Glucose, Whole Blood 172 mg/dL (60-115)
--- NOTE | 2023-06-16 13:11 | MHC.SHP ---
Pre-Procedural Eval Section A - 24 Hr Update-Section A only Date of Service: 06/16/23 The patient is an INPATIENT: No Changes since office visit: No Cold of Flu in the past 2 weeks, No New Medical Problems, No Changes in Medication and No Patient answered all questions The patient has been examined within 24 hours of the surgical procedure. The History & Physical has been completed within 30 days and I have reviewed it.: Yes Section B - Complete if H&P > 30 days Chief Complaint: Sprain of anterior cruciate ligament of left knee, Allergies: Allergies Allergy/AdvReac Type Severity Reaction Status Date / Time cinnamon Allergy Intermediate Hives Verified 06/10/23 13:41 Plan I have reviewed the history and physical and performed a pertinent physical examination on my patient. No changes have occurred unless specified. Time Spent With Patient Time: Total time managing care of this patient today ____ minutes.
--- NOTE | 2023-06-16 13:50 | HO.ANESPROP2 ---
HPI - Anesthesia Eval Consult details Narrative: for ACL repair PMFSH Active Problems Active Problems: All Active Problems (Updated 06/10/23 @ 13:32 by Ligia Ayers RN) ACL (anterior cruciate ligament) tear (Acute) Left knee pain (Acute) Past Medical History Medical History Diabetes Family History Family history of problems with anesthesia: No Surgical History Surgical History Hx laparoscopic cholecystectomy Hx of breast reduction, elective History of Problems with Anesthesia: No Social History Social History Are you a primary care transition coordinator to a significant other at home: No Do you presently have visiting nurse or other home services: No Patient Tobacco Use Status: Never used Tobacco Use of substances other than those prescribed or required for medical reasons: No Have you been hit, kicked, punched, or otherwise hurt by someone within the past year? If so, by whom?: No Are you DNR?: No Advance Directives: No Advance Directives Information Provided: Yes Advance Directives on File: No Recently lost weight without trying: No Eating poorly because of decreased appetite: No Nutrition Risks: No Nutritional Risk Patient : No FDLMP: 05/27/23 : No Poor oral hygiene: No Current occupational status: unemployed Meds Allergies Allergy/AdvReac Type Severity Reaction Status Date / Time cinnamon Allergy Intermediate Hives Verified 06/10/23 13:41 Active Medications: Current Medications Lactated Ringer's (Lr) 1,000 mls @ 50 mls/hr IVCONT .Q20H MIKE Last Admin: 06/16/23 11:43 Dose: 50 mls/hr Home Medications Medication Instructions Recorded Confirmed Last Taken Type bupropion HCl 300 mg 24 hr tablet, 300 mg PO QAM 03/30/23 06/10/23 Unknown History extended release cetirizine 10 mg tablet 10 mg PO QAM 03/30/23 06/10/23 Unknown History clonidine HCl 0.1 mg tablet 0.1 mg PO BEDTIME anxiety 03/30/23 06/10/23 Unknown History dulaglutide 1.5 mg/0.5 mL 1.5 mg subcut QWEEK 03/30/23 06/10/23 05/12/23 History subcutaneous pen injector (Trulicity) escitalopram oxalate 10 mg tablet 10 mg PO DAILY 03/30/23 06/10/23 Unknown History hydroxyzine HCl 10 mg tablet 10 mg PO TID PRN anxiety 03/30/23 06/10/23 Unknown History diclofenac sodium 25 mg 25 mg PO BID 05/31/23 06/10/23 Unknown History tablet,delayed release escitalopram oxalate 5 mg tablet 5 mg PO DAILY 05/31/23 06/10/23 Unknown History nabumetone 500 mg tablet 500 mg PO BID PRN Headache 06/10/23 06/10/23 Unknown History Exam Height,Weight and Vital Signs: Height 5 ft 1 in Weight 78.3 kg Last Vital Signs Temp 96.9 F 06/16/23 11:20 Pulse 82 06/16/23 11:20 Resp 17 06/16/23 11:20 BP 119/64 06/16/23 11:20 Pulse Ox 99 06/16/23 11:20 O2 Del Method Room Air 06/16/23 11:20 Pertinent Lab Results Pertinent Lab Results: Laboratory Tests 06/16/23 06/16/23 11:20 11:35 POC Glucose 172 H Urine Test NEGATIVE Airway Mallampati Class: II TM Dist: >3cm Neck ROM: Full Heart: rrr Lungs: cta Assessment and Plan Assessment Anesthesia Assessment: Anesthesia Plan Discussed and Chart Reviewed Final Anesthetic Review Family History of Problems with Anesthesia: No History of Problems with Anesthesia: No NPO: Yes ASA Class: II Final Preanesthetic Review: No Changes in Pt Med Stat, Meds/Allgs Chart Reviewed, Consent Obtained/Reviewed and Anes Risks/Benef Reviewed Patient Risk: Intermediate Procedure Risk: Intermediate Anesthetic Plan Anesthetic Plan: GA and Regional Block Disposition: Standard PACU
--- NOTE | 2023-06-16 14:57 | PM.OP ---
Brief Operative Note Date of Service: 06/16/23 Pre-op diagnosis: Left ACL rupture Post-op diagnosis: other (1) ACL rupture 2) MMT) Procedure: 1) ACL reconstruction with allograft 2) Medial meniscus repair Implants: Macias and Nephew Fast fix x 3 Macias and Nephew ACL endobutton with 10x25 mm interference screw RTI Allograft Surgeon: Celestine Morse MD Anesthesia: GETA, regional and local Was an Tile Finisher used for this Procedure?: Yes Tile Finisher: Nicole Almeida Estimated blood loss (mL): 25 Tourniquet time (min): 60 IV fluids (mL): 1,000 Pathology: none sent Condition: stable Disposition: PACU
--- NOTE | 2023-06-16 15:03 | W.PM.OPN ---
Operative Note Operative Note Date of Service: 06/16/23 Narrative: Date of Service: 06/16/23 Pre-op diagnosis: Left ACL rupture Post-op diagnosis: other (1) ACL rupture 2) MMT) Procedure: 1) ACL reconstruction with allograft 2) Medial meniscus repair Implants: Macias and Nephew Fast fix x 3 Macias and Nephew ACL endobutton with 10x25 mm interference screw RTI Allograft Surgeon: Celestine Morse MD Anesthesia: GETA, regional and local Was an Online Content Editor used for this Procedure?: Yes Online Content Editor: Nicole Almeida Estimated blood loss (mL): 25 Tourniquet time (min): 60 IV fluids (mL): 1,000 Pathology: none sent Condition: stable Disposition: PACU Procedure in detail: Patient was brought to the operating room placed supine on the arthroscopic table and prepped and draped in standard sterile fashion. A time-out was called to identify proper site proper procedure proper surgeon and IV antibiotics per weight were administered. Under anesthesia she had a + pivot shift. I began by exsanguinating the limb and insufflating tourniquet to 300 mm Hg. Then made a standard anterolateral stab incision. The knee was insufflated with water and 30 degree arthroscope was placed. There was grade 1 fibrillations of the patella but overall suprapatellar pouch and the gutters were clean. I descended into the medial compartment where I made my far medial portal under direct visualization. There was an unstable bucket handle medial meniscus tear in the red/white zone. This involved the posterior horn only. THe body and the root were intact. I used a shaver to debride the loose edges and then I used three Fast Pass meniscal cinches (Macias and Nephew) to repair the tear through the AM portal. I was satisfied with the extent of repair. The meniscus was stable and there were no free flaps. The lateral compartment was examined and there was in intact and stable lateral meniscus with nl cartilage. I then examined the notch where there was a + empty wall sign and an intact PCL. I debrided the stump and acl footprint and performed a limited notchplasty. I then, through a far AM portal and a 7mm behind the back guide, drilled a k-wire through the LFC with the knee in hyper-flexion. I measured the tunnel as a 32 and then after sizing the allograft on the back table drilled a 25 mm tunnel with a 10 mm reamer. The final 6 mm was drilled with a 4.5 reamer. I then pulled a suture through the femoral tunnel and turned my attention to the tibia. I did examine the femoral tunnel and was satisfied with the posterior wall and its location low and medial at the anatomic footprint. I placed my tibial drill guide in 55 deg and, through a anteromedial inc just lateral to the tibial tubercle placed a k-wire into the notch exiting just medial to the anterior horn insertion of the lateral meniscus. I then over-reamed with a 10 reamer. I cleaned the tunnels up with a shaver. On the back table my clinical services assistant had whip-stitched the allograft to fit through a 10 aperture and attached the femoral button to the looped end. The graft was placed the graft on 15lbs of tension for 10 minutes. I then passed the allograft through the tibial tunnel and femoral tunnel and flipped the button. I cycled the knee about 10-15 cycles and then placed a tibial interference screw with the knee in hyper-extension while holding the graft taught. Once I was satisfied that the interference screw was buried I examined the ACL and the medial meniscus repair. The repair was stable and the ACL was not impinging and there was a negative pivot shift. I then removed all instrumentation and closed the incisions with absorbable suture and skin glue. Patient was then placed in sterile dressings and a hinged knee brace. She was then extubated brought recovery room stable condition. There were no known complications. ACL with MMR protocol
[2023-06-16] MEDS: oxyCODONE HCl Immed Release 5 MG TABLET PO (16:07)
== END | disposition home or self-care (01) ==
PROVIDERS: Anesthesiology; Visit Provider Orthopaedic Surgery
PROC: (CPT 27428; principal; 2023-06-16 14:00)
DX: S83.512A Sprain of anterior cruciate ligament of left knee, initial encounter (principal); S83.242A Other tear of medial meniscus, current injury, left knee, initial encounter; X50.1XXA Overexertion from prolonged static or awkward postures, initial encounter; E11.9 Type 2 diabetes mellitus without complications; Y93.9 Activity, unspecified; Y92.9 Unspecified place or not applicable; Y99.9 Unspecified external cause status
CPT/HCPCS: 29888; 29881; 81025; 82947; C1713; C1769; J0171; J0665; J0690; J1100; J2250; J2704; J3010

== ENCOUNTER 2023-06-18 09:05 | Outpatient (REF) | payer MEDICAID, SELFPAY ==
--- NOTE | ~2023-06-18 | XR_ITS ---
EXAMINATION: XR KNEE, LEFT CLINICAL INFORMATION: Pain unspecified knee. COMPARISON: MR left knee of 05/06/2023. Radiographs left knee of 07/29/2022. Bilateral knee radiographs of 04/06/2018. TECHNIQUE: 2 views of left knee. FINDINGS: Moderate joint effusion. Mild medial joint space narrowing with faint chondrocalcinosis. Tiny marginal osteophytes. Expected postsurgical changes of ACL repair. Faint calcifications along the soft tissues posterior to the knee of indeterminant etiology. XR/XR knee LT 2V IMPRESSION: Moderate joint effusion. Mild degenerative changes. Expected postsurgical changes of ACL repair.
== END 2023-06-18 09:06 | disposition home or self-care (01) ==
LOC: HO.HOSX 09:05
PROVIDERS: Visit Provider Physician Assistant
DX: Z13.89 Encounter for screening for other disorder (principal)

== ENCOUNTER 2023-06-22 14:34 | Outpatient (AMB) | payer MEDICAID, SELFPAY ==
--- NOTE | 2023-06-22 14:47 | A.OFFVIS_ITS ---
Intake Intake Visit Reasons: PO LT ACL recon w/ allo 06/16/23 NE Intake Note: Iraida is a 37 year old female who presents today for a post op appointment s/p left ACL reconstruction 06/16/23 NE. Patient reports her pain is worse when she is sleeping. She states that she is doing well and ended her pain medication. Allergies cinnamon Allergy (Intermediate, Verified 06/22/23 14:48) Hives HPI PO LT ACL recon w/ allo 06/16/23 NE HPI Details 37-year-old female who presents in the o [facility] today 6 days status post left ACL reconstruction with allograft and medial meniscus repair, which was performed on 06/16/[address] Morse. The patient reports her pain increases when she is sleeping. She reports overall she is doing well and has discontinued the use of her pain medication. [facility] Medical History Diabetes Surgical History Hx laparoscopic cholecystectomy Hx of breast reduction, elective Social History Are you a primary care team coordinator scheduler to a significant other at home: No Do you presently have visiting nurse or other home services: No Patient Tobacco Use Status: Never used Tobacco Current occupational status: unemployed Review of Systems Const All systems reviewed & are unremarkable except as noted in HPI and below Physical Exam Const General: cooperative, healthy appearing and no acute distress Resp Effort & Inspection: normal respiratory effort and able to speak in complete sentences Cardio Rate: regular rate Peripheral pulses: Peripheral pulses 2+ throughout GI Palpation (GI): Soft to palpation Skin Lesions: no lesions Rashes: no rashes Extrem Other: Left knee: Incision site is clean, dry, and intact. No surrounding erythema or drainage. No signs of infection. Able to dorsiflex and plantarflex. NVI. Assessment & Plan Assessment & Plan (1) ACL (anterior cruciate ligament) tear: Comment: Left ACL reconstruction with allograft and medial meniscus repair 06/16/2023 NE Code(s): S83.519A - Sprain of anterior cruciate ligament of unspecified knee, initial encounter Qualifiers: Encounter type: subsequent encounter Laterality: left Qualified Code(s): S83.512D - Sprain of anterior cruciate ligament of left knee, subsequent encounter Plan Ms. Basilio is a 37-year-old female who presents in the office today 6 days status post left ACL reconstruction with allograft and medial meniscus repair, which was performed on 06/16/[address] Morse. The patient reports her pain increases when she is sleeping. She reports overall she is doing well and has discontinued the use of her pain medication. Sutures were removed and steri-stripes were applied. She was put back into the brace. She has her first physical therapy session tomorrow, 06/23/2023. Follow u p will be in [address] Morse, or sooner if needed. X-rays of the left knee which were obtained while in the office today and were reviewed by me, iNcole Almeida PA-C, revealed intact endobutton with appropriated placement. Orders: Orders XR knee LT 2V Today M25.569 - Pain in unspecified knee Patient Instructions: Scribed by [facility] medical and lab director, for Nicole Almeida PA-C on 06/22/2023 at 2:43 pm, EST. Coding Level of Care Code Global (52919) Diagnoses Rupture of anterior cruciate ligament of left knee, subsequent encounter S83.512D Encounter type: subsequent encounter Laterality: left
== END 2023-06-22 15:17 | disposition home or self-care (01) ==
PROVIDERS: PCP Nurse Practitioner Family; Visit Provider Physician Assistant
DX: S83.512D Sprain of anterior cruciate ligament of left knee, subsequent encounter (principal)
CPT/HCPCS: 99024

== ENCOUNTER → 2023-06-22 14:34 | Outpatient (BNVA) | payer MEDICAID, SELFPAY | PROVIDERS: PCP Nurse Practitioner Family; Visit Provider Physician Assistant | DX: S83.512D Sprain of anterior cruciate ligament of left knee, subsequent encounter (principal) | CPT/HCPCS: 73560; 99212 ==

== ENCOUNTER 2023-07-23 10:56 | Outpatient (AMB) | payer MEDICAID, SELFPAY ==
--- NOTE | 2023-07-23 11:01 | A.OFFVIS_ITS ---
Intake Vital Signs 07/23/23 11:08 Height 5 ft 1 in Weight 170 lb BMI 32.1 Intake Visit Reasons: PO-LT ACL recon w/ allo 06/16/23 NE Intake Note: Iraida is a 37 year old female who presents today for a post op appointment s/p left ACL reconstruction 06/16/23 NE. Patient is full weight bearing with crtuches, she reports that she is doing well with no concerns. Allergies cinnamon Allergy (Intermediate, Verified 07/23/23 11:02) Hives HPI PO-LT ACL recon w/ allo 06/16/23 NE HPI Details 6 weeks s/p ACL recon with MMR Doing PT and ROM improving PFSH Medical History Diabetes Surgical History Hx laparoscopic cholecystectomy Hx of breast reduction, elective Social History Are you a primary anesthesiologist and critical care to a significant other at home: No Do you presently have visiting nurse or other home services: No Patient Tobacco Use Status: Never used Tobacco Current occupational status: unemployed Physical Exam Vital Signs: BMI result Body Mass Index 32.1 Extrem Other: 0-100 portals c/d/i Assessment & Plan Assessment & Plan (1) ACL (anterior cruciate ligament) tear: Comment: Left ACL reconstruction with allograft and medial meniscus repair 06/16/2023 NE Code(s): S83.519A - Sprain of anterior cruciate ligament of unspecified knee, initial encounter Qualifiers: Encounter type: subsequent encounter Laterality: left Qualified Code (s): S83.512D - Sprain of anterior cruciate ligament of left knee, subsequent encounter Plan: Continue ACL rehab (2) S/P medial meniscal repair: Code(s): Z98.890 - Other specified postprocedural states Plan: Continbue as per MMR protocol. Brace and crutches until ROM and gait normalize Coding Level of Care Code Global (24820) Diagnoses Rupture of anterior cruciate ligament of left knee, subsequent encounter S83.512D Encounter type: subsequent encounter Laterality: left S/P medial meniscal repair Z98.890
[2023-07-23 11:08] VITALS: BMI 32.1
== END 2023-07-23 11:37 | disposition home or self-care (01) ==
PROVIDERS: PCP Nurse Practitioner Family; Visit Provider Orthopaedic Surgery
DX: S83.512D Sprain of anterior cruciate ligament of left knee, subsequent encounter (principal); Z98.890 Other specified postprocedural states
CPT/HCPCS: 99024

== ENCOUNTER → 2023-07-23 10:56 | Outpatient (BNVA) | payer MEDICAID, SELFPAY | PROVIDERS: PCP Nurse Practitioner Family; Visit Provider Orthopaedic Surgery | DX: S83.512D Sprain of anterior cruciate ligament of left knee, subsequent encounter (principal); Z98.890 Other specified postprocedural states; X58.XXXD Exposure to other specified factors, subsequent encounter | CPT/HCPCS: 99212 ==

== ENCOUNTER 2023-08-20 11:59 | Outpatient (REF) | payer MEDICAID, SELFPAY ==
[2023-08-20 13:21] LABS: Creatinine Urine 95.78 mg/dL; Microalbum/Creatinine Ratio Ur 11.4 ug/mg cr (<30)
== END 2023-08-20 12:00 | disposition home or self-care (01) ==
LOC: HO.LAB 11:59
PROVIDERS: PCP Nurse Practitioner Family; Visit Provider Nurse Practitioner Family
DX: E11.69 Type 2 diabetes mellitus with other specified complication (principal)
CPT/HCPCS: 82043; 82570

== ENCOUNTER 2023-08-24 12:06 | Outpatient (REF) | payer MEDICAID, SELFPAY ==
[2023-08-24 13:37] LABS: Anion Gap 11 (12-20); Blood Urea Nitrogen 9 mg/dL (9-16); Calcium 9.1 mg/dL (8.4-10.2); Carbon Dioxide 25 mmol/L (22-29); Chloride 104 mmol/L (96-108); Cholesterol 198 mg/dL (<200); Estimated Glomerular Filt Rate > 60; Glucose Random 136 mg/dL (60-115); HDL Cholesterol 39 mg/dL (>40); LDL Cholesterol Calculated 140 mg/dL (<100); Potassium 3.9 mmol/L (3.3-5.1); Sodium 136 mmol/L (135-145); Triglycerides 98 mg/dL (<150)
== END 2023-08-24 12:07 | disposition home or self-care (01) ==
LOC: HO.LAB 12:06
PROVIDERS: PCP Nurse Practitioner Family; Visit Provider Nurse Practitioner Family
DX: E11.69 Type 2 diabetes mellitus with other specified complication (principal)
CPT/HCPCS: 36415; 80048; 80061

== ENCOUNTER 2023-09-03 11:33 | Outpatient (AMB) | payer MEDICAID, SELFPAY ==
--- NOTE | 2023-09-03 11:34 | MHC.OFFVIS ---
Vital Signs 09/03/23 11:37 Height 5 ft 1 in Weight 170 lb BMI 32.1 Intake Visit Reasons: ov-LT ACL recon w/ allo 06/16/23 NE Intake Note: Iraida is a 38 year old female who presents today for a post operative appointment s/p Left ACL reconstruction w/ Allograft 06/16/23. Patient reports that she is doing well, she has changes in her symptoms with the weather. No concerns at this time. Allergies cinnamon Allergy (Intermediate, Verified 09/07/23 14:01) Hives peanut Allergy (Mild, Verified 09/07/23 14:02) Unknown HPI HPI ov-LT ACL recon w/ allo 06/16/23 NE: Details: Iraida is a 38 year old female who presents today for a post operative appointment s/p Left ACL reconstruction w/ Allograft 06/16/23. Patient reports that she is doing well, she has changes in her symptoms with the weather. No concerns at this time. PFSH Medical History Diabetes Surgical History Hx laparoscopic cholecystectomy Hx of breast reduction, elective Social History Are you a primary career development consultant to a significant other at home: No Do you presently have visiting nurse or other home services: No Patient Tobacco Use Status: Never used Tobacco Current occupational status: unemployed Physical Exam Vital Signs: BMI result Body Mass Index 32.1 Extrem Other: Stable Matt's Mild tightness in terminal flexion but minimal pain Negative pivot shift Assessment & Plan Assessment & Plan (1) ACL (anterior cruciate ligament) tear: Comment: Left ACL reconstruction with allograft and medial meniscus repair 06/16/2023 NE Code(s): S83.519A - Sprain of anterior cruciate ligament of unspecified knee, initial encounter Category: Medical Qualifiers: Encounter type: subsequent encounter Laterality: left Qualified Code(s): S83.512D - Sprain of anterior cruciate ligament of left knee, subsequent encounter Plan: Doing well. Continue PT and home exercise program (2) S/P medial meniscal repair: Code(s): Z98.890 - Other specified postprocedural states Category: Surgical Plan: Doing well continue PT and home exercise program. follow-up 3 months Coding Level of Care Code Est Pt Level 3 (59313) Diagnoses Rupture of anterior cruciate ligament of left knee, subsequent encounter S83.512D Encounter type: subsequent encounter Laterality: left S/P medial meniscal repair Z98.890
[2023-09-03 11:37] VITALS: BMI 32.1
== END 2023-09-03 11:57 | disposition home or self-care (01) ==
PROVIDERS: PCP Nurse Practitioner Family; Referring Provider Nurse Practitioner Family; Visit Provider Orthopaedic Surgery
DX: S83.512D Sprain of anterior cruciate ligament of left knee, subsequent encounter (principal)
CPT/HCPCS: 99024

== ENCOUNTER → 2023-09-03 11:33 | Outpatient (BNVA) | payer MEDICAID, SELFPAY | PROVIDERS: PCP Nurse Practitioner Family; Visit Provider Orthopaedic Surgery | DX: S83.512D Sprain of anterior cruciate ligament of left knee, subsequent encounter (principal) | CPT/HCPCS: 99212 ==

== ENCOUNTER 2023-09-07 13:49 | Outpatient (AMB) | payer MEDICAID, SELFPAY ==
--- NOTE | 2023-09-07 13:58 | MHC.OFFVIS ---
Vital Signs 09/07/23 14:00 Height 5 ft 1 in Weight 163 lb 2.273 oz BMI 30.8 BP 121/61 Blood Pressure Location Lt brachial Position Sitting Pulse 65 Intake Visit Reasons: family hx of colon cancer Intake Note: Iraida presents in the office as a new patient for family hx colon cancer. CC: Patient states that she does not have her gall ladder. Bloating, burps, regurgitation, diarrhea. Bad taste in her mouth when she burps. Chili Maker Required: No Allergies cinnamon Allergy (Intermediate, Verified 09/07/23 14:01) Hives peanut Allergy (Mild, Verified 09/07/23 14:02) Unknown HPI HPI family hx of colon cancer: Details: 38-year-old female with past medical history of diabetes, anxiety, obesity is here today for initial consultation. Patient was sent to us for colonoscopy. Patient's mom was diagnosed in early 60s with CRC. Patient reports frequent postprandial loose stools. History of laparoscopic cholecystectomy in 2018. Patient reports that since then she has been having loose stools. Frequent postprandial loose stools specially when she eats something fat or greasy. Patient reports postprandial abdominal bloating. Epigastric pain and dyspepsia without dysphagia or odynophagia. Patient denies any nausea or vomiting. No issues with anesthesia in the past. No history of sleep apnea. Not on any anticoagulation medication. Patient is diabetic and is taking Trulicity, however patient reports that she has not taken Trulicity only when she needs it. Patient does admit that when she takes it she feels very full and she does not have appetite to eat PFSH Medical History Diabetes Surgical History Hx laparoscopic cholecystectomy Hx of breast reduction, elective Social History Are you a primary health care facility administrator to a significant other at home: No Do you presently have visiting nurse or other home services: No Patient Tobacco Use Status: Never used Tobacco Current occupational status: unemployed Review of Systems Const Denies weight gain and Denies weight loss ENT Reports no additional complaints, Denies dysphagia and Denies odynophagia Card Reports no additional complaints Resp Reports no additional complaints GI Reports abdominal pain (Epigastric), Denies belching, Denies melena, Reports bloating, Denies dysphagia, Denies excessive flatus, Reports dyspepsia, Reports heartburn, Denies diarrhea, Reports loose stools, Denies nausea, Denies odynophagia and Denies vomiting Reports no additional complaints Musc Reports no additional complaints Neuro Reports no additional complaints Psych Reports no additional complaints Endo Reports no additional complaints Physical Exam Vital Signs: Last Vital Signs Pulse 65 09/07/23 14:00 BP 121/61 09/07/23 14:00 BMI result Body Mass Index 30.8 Const General: healthy appearing and no acute distress Nutritional Appearance: obese Orientation/consciousness: patient oriented x3 Resp Effort & Inspection: normal respiratory effort, able to speak in complete sentences, no tracheal deviation and symmetric chest movement Auscultation: clear to auscultation bilaterally Cardio Rate: regular rate GI Inspection: Yes normal to inspection, No distended and Yes obesity Palpation (GI): Soft to palpation, not firm, nontender and No hepatosplenomegaly present Auscultation: normal bowel sounds General: Yes no CVA tenderness Back/Spine/Pelvis Back: no CVA tenderness Skin General skin exam: elasticity normal, turgor normal and dry skin Neuro General: patient oriented x3 Psych Appearance: grossly normal Mental Status: mental status grossly normal Assessment & Plan Assessment & Plan (1) Screen for colon cancer: Code(s): Z12.11 - Encounter for screening for malignant neoplasm of colon Plan Patient denies any cardiac or respiratory symptoms.? Denies any issues with anesthesia in the past.? Denies any history of sleep apnea.? No history infectious diseases in the past or present.? Not on any anticoagulation therapy.? Family history of colorectal cancer. Patient's mom was diagnosed with colorectal cancer in her early 60s. Patient does admit epigastric pain postprandially and postprandial loose stools. Most likely related to absent gallbladder. Will check however for lipase, celiac, check vitamin B12, folate, vitamin-D, liver panel and thyroid study. Patient will start taking pantoprazole in the morning half an hour before breakfast. She will start taking Citrucel in the morning and senna at night time to help her eliminate her bowels completely. Patient will return in 5 weeks to discuss colonoscopy. In the meantime we will book her for colonoscopy and upper endoscopy. Patient is agreeable to this plan and verbalizes understanding of instructions. She was given the opportunity to ask questions and all questions answered. Thank you for allowing me to participate in her care Orders: Orders Transglutaminase Ab IgG Today R10.9 - Unspecified abdominal pain Transglutaminase IgA Today R10.9 - Unspecified abdominal pain TSH reflex Free T4 Today K59.00 - Constipation, unspecified Vitamin B12 and Folate Today R19.7 - Diarrhea, unspecified Vitamin D 25-OH (D2 and D3) Today E55.9 - Vitamin D deficiency, unspecified Lipase Today R10.9 - Unspecified abdominal pain Liver Panel Today R74.01 - Elevation of levels of liver transaminase levels Medications: New methylcellulose (laxative) (Citrucel) take it with full glass of water 500 mg PO DAILY 30 tabs 2RF K59.00 - Constipation, unspecified pantoprazole take one tablet half an hour before breakfast 40 mg PO DAILY 30 tabs 2RF K21.9 - Gastro-esophageal reflux disease without esophagitis sennosides (Natural Senna Laxative) 17.2 mg (2 x 8.6 mg) PO BEDTIME 60 tabs 3RF constipation K59.00 - Constipation, unspecified Coding Level of Care Code New Pt Level 4 (09109) Diagnoses Screen for colon cancer Z12.11 Time Spent (min) 45 Comment 30 minutes spent with patient and additional 15 minutes spent reviewing her records
[2023-09-07 14:00] VITALS: BP 121/61; PULSE 65; BMI 30.8
== END 2023-09-07 14:45 | disposition home or self-care (01) ==
PROVIDERS: PCP Nurse Practitioner Family; Visit Provider Nurse Practitioner Family
DX: Z12.11 Encounter for screening for malignant neoplasm of colon (principal); Z01.818 Encounter for other preprocedural examination
CPT/HCPCS: 99204

== ENCOUNTER → 2023-09-07 13:49 | Outpatient (BNVA) | payer MEDICAID, SELFPAY | PROVIDERS: PCP Nurse Practitioner Family; Visit Provider Nurse Practitioner Family | DX: Z01.818 Encounter for other preprocedural examination (principal); R19.4 Change in bowel habit; K21.9 Gastro-esophageal reflux disease without esophagitis; R10.13 Epigastric pain; Z80.0 Family history of malignant neoplasm of digestive organs | CPT/HCPCS: 99212 ==

== ENCOUNTER 2023-09-10 12:03 | Outpatient (REF) | payer MEDICAID, SELFPAY ==
[2023-09-10 13:35] LABS: Alanine Aminotransferase 12 U/L (0-31); Albumin Level 3.9 g/dL (3.5-5.0); Alkaline Phosphatase 50 U/L (39-117); Aspartate Amino Transferase 10 U/L (5-31); Bilirubin Direct 0.2 mg/dL (0.0-0.5); Bilirubin Total 0.5 mg/dL (0.0-1.0); Lipase 34 U/L (8-78); Total Protein 6.7 g/dL (6.5-8.0)
[2023-09-10 13:50] LABS: TSH reflex Free T4 0.69 uIU/mL (0.32-4.0)
[2023-09-10 13:58] LABS: Folate 6.1 ng/mL (> or = 4.0); Vitamin B12 230 pg/mL (200-900)
[2023-09-15 18:14] LABS: Vitamin D 25-OH, D2 <4 ng/mL; Vitamin D 25-OH, D3 11 ng/mL; Vitamin D 25-OH, Total 11 ng/mL (30-100)
[2023-09-17 12:58] LABS: Transglutaminase Ab IgG <1.0 U/mL; Transglutaminase IgA <1.0 U/mL
== END 2023-09-10 12:04 | disposition home or self-care (01) ==
LOC: HO.LAB 12:03
PROVIDERS: PCP Nurse Practitioner Family; Visit Provider Nurse Practitioner Family
DX: R10.9 Unspecified abdominal pain (principal); R74.01 Elevation of levels of liver transaminase levels; K59.00 Constipation, unspecified; R19.7 Diarrhea, unspecified; E55.9 Vitamin D deficiency, unspecified
CPT/HCPCS: 36415; 80076; 82306; 82607; 82746; 83690; 84443; 86364

== ENCOUNTER 2023-10-18 15:15 | Outpatient (AMB) | payer MEDICAID, SELFPAY ==
--- NOTE | 2023-10-18 15:17 | MHC.OFFVIS ---
Vital Signs 10/18/23 15:21 Height 5 ft 1 in Weight 161 lb 13.109 oz BMI 30.6 BP 110/76 Blood Pressure Location Lt brachial Position Sitting Pulse 82 Pulse Source Pulse Oximeter Pulse Oximetry (%) 98 Oxygen Delivery Method Room Air Intake Visit Reasons: 5 week follow up Intake Note: Iraida presents to the office today for a scheduled 5 week FUV. CC: Pt was rx'd pantoprazole, senna, and citrucel at her last visit. Pt has double s/p scheduled for 01/12/2024. Pt reports that they have noticed a significant improvement in their sx. Pt has noticed a significant reduction in the abdominal distention and bloating. Pt has noticed that they have continued to lose weight in small quantities. Pt has continued to take the medication as instructed. Road Consultant Required: No Allergies cinnamon Allergy (Intermediate, Verified 10/18/23 15:25) Hives peanut Allergy (Mild, Verified 10/18/23 15:25) Unknown HPI HPI 5 week follow up: Details: LAST VISIT Screen for colon cancer Plan Patient denies any cardiac or respiratory symptoms.? Denies any issues with anesthesia in the past.? Denies any history of sleep apnea.? No history infectious diseases in the past or present.? Not on any anticoagulation therapy.? Family history of colorectal cancer. Patient's mom was diagnosed with colorectal cancer in her early 60s. Patient does admit epigastric pain postprandially and postprandial loose stools. Most likely related to absent gallbladder. Will check however for lipase, celiac, check vitamin B12, folate, vitamin-D, liver panel and thyroid study. Patient will start taking pantoprazole in the morning half an hour before breakfast. She will start taking Citrucel in the morning and senna at night time to help her eliminate her bowels completely. Patient will return in 5 weeks to discuss colonoscopy. In the meantime we will book her for colonoscopy and upper endoscopy. Patient is agreeable to this plan and verbalizes understanding of instructions. She was given the opportunity to ask questions and all questions answered. ? Thank you for allowing me to participate in her care Orders Orders Transglutaminase Ab IgG Today R10.9 Transglutaminase IgA Today R10.9 TSH reflex Free T4 Today K59.00 Vitamin B12 and Folate Today R19.7 Vitamin D 25-OH (D2 and D3) Today E55.9 Lipase Today R10.9 Liver Panel Today R74.01 Medications New methylcellulose (laxative) (Citrucel) take it with full glass of water 500 mg PO DAILY 30 tabs 2RF K59.00 pantoprazole take one tablet half an hour before breakfast 40 mg PO DAILY 30 tabs 2RF K21.9 sennosides (Natural Senna Laxative) 17.2 mg (2 x 8.6 mg) PO BEDTIME 60 tabs 3RF constipation K59.00 TODAY'S VISIT Patient is here today for follow-up. Patient reports that since the last time I have seen her she has been doing much better. Patient reports that her symptoms of acid reflux have suppressed. Takes pantoprazole every morning half an hour before breakfast. Denies any dyspepsia, dysphagia or odynophagia. Patient reports that she also is moving her bowels better now. Takes fiber supplement and senna and she is able to move her bowels well without any issues. Patient reports that she is eating better. States that she changed her diet and is able to lose weight. Patient is feeling better. Less bloating. Patient states that her abdomen is soft for the most part. Occasional abdominal bloating and depending on what she eats. Patient states that she is avoiding carbs. Decrease the amount of sugar intake. [facility] Medical History Diabetes Surgical History Hx laparoscopic cholecystectomy Hx of breast reduction, elective Social History Are you a primary health care aide to a significant other at home: No Do you presently have visiting nurse or other home services: No Patient Tobacco Use Status: Never used Tobacco Current occupational status: unemployed Review of Systems Const Denies weight gain and Denies weight loss ENT Reports no additional complaints, Denies dysphagia and Denies odynophagia Card Reports no additional complaints Resp Reports no additional complaints GI Denies abdominal pain, Denies belching, Denies melena, Denies bloating, Denies change in bowel habits, Denies dysphagia, Denies excessive flatus, Denies dyspepsia, Denies heartburn, Denies diarrhea, Denies loose stools, Denies nausea, Denies odynophagia and Denies vomiting Musc Reports no additional complaints Neuro Reports no additional complaints Psych Reports no additional complaints Endo Reports no additional complaints Physical Exam Vital Signs: Last Vital Signs Pulse 82 10/18/23 15:21 BP 110/76 10/18/23 15:21 Pulse Ox 98 10/18/23 15:21 Oxygen Delivery Method Room Air 10/18/23 15:21 BMI result Body Mass Index 30.6 Const General: healthy appearing and no acute distress Nutritional Appearance: obese Orientation/consciousness: patient oriented x3 Resp Effort & Inspection: normal respiratory effort, able to speak in complete sentences, no tracheal deviation and symmetric chest movement Auscultation: clear to auscultation bilaterally Cardio Rate: regular rate GI Inspection: Yes normal to inspection, No distended and Yes obesity Palpation (GI): Soft to palpation, not firm, nontender and No hepatosplenomegaly present Auscultation: normal bowel sounds General: Yes no CVA tenderness Back/Spine/Pelvis Back: no CVA tenderness Skin General skin exam: elasticity normal, turgor normal and dry skin Neuro General: patient oriented x3 Psych Appearance: grossly normal Mental Status: mental status grossly normal Assessment & Plan Assessment & Plan (1) Screen for colon cancer: Code(s): Z12.11 - Encounter for screening for malignant neoplasm of colon (2) IBS (irritable bowel syndrome): Code(s): K58.9 - Irritable bowel syndrome without diarrhea Qualifiers: Irritable bowel syndrome type: without diarrhea Qualified Code(s): K58.9 - Irritable bowel syndrome without diarrhea (3) Postprandial abdominal bloating: Code(s): R14.0 - Abdominal distension (gaseous) (4) Constipation: Code(s): K59.00 - Constipation, unspecified Qualifiers: Constipation type: slow transit constipation Qualified Code(s): K59.01 - Slow transit constipation Plan Continue current management with pantoprazole. Avoid dietary triggers. Staying upright for minimum 3 hours after meals discussed with patient. Patient will be sent for upper endoscopy to rule out esophagitis, H pylori, Case's. Patient will also go for colonoscopy. Postprandial abdominal bloating improved. Patient is moving her bowels better now. Due to change in bowel pattern as well as family history of CRC. Patient's mom was diagnosed with stage IV cancer in her 60s. Patient denies any melena, hematochezia, unintentional weight loss or ribbon like stools. Patient denies any issues with anesthesia in the past. No history of sleep apnea. Not on any anticoagulation medication. Patient admits that she is on Trulicity, however she is not taking the medication only if she feels like she needs it. Please make sure that patient is not going to be taking that is specially for minimum 7 days before procedure. I will see her after the procedure, sooner on as needed basis. Patient is agreeable to this plan and verbalizes understanding of instructions. She was given the opportunity to ask questions and all questions answered. Thank you for allowing me to participate in her care Medications: New bisacodyl (Dulcolax (bisacodyl)) take 4 tabs at noon the day before your colonoscopy 20 mg (4 x 5 mg) PO ONCE 4 tabs 0RF 1 day Z12.11 - Encounter for screening for malignant neoplasm of colon polyethylene glycol 3350 (Miralax) As directed by gastroenterology department at [facility] 238 grams PO ONCE 238 grams 0RF Z12.11 - Encounter for screening for malignant neoplasm of colon Coding Level of Care Code Est Pt Level 3 (37030) Diagnoses Screen for colon cancer Z12.11 Irritable bowel syndrome without diarrhea K58.9 Irritable bowel syndrome type: without diarrhea Postprandial abdominal bloating R14.0 Slow transit constipation K59.01 Constipation type: slow transit constipation Time Spent (min) 30 Comment 20 minutes spent with patient and additional 10 minutes spent reviewing her records
[2023-10-18 15:21] VITALS: BP 110/76; PULSE 82; O2SAT 98; BMI 30.6
== END 2023-10-18 16:00 | disposition home or self-care (01) ==
PROVIDERS: PCP Nurse Practitioner Family; Visit Provider Nurse Practitioner Family
DX: Z12.11 Encounter for screening for malignant neoplasm of colon (principal); K58.9 Irritable bowel syndrome, unspecified; R14.0 Abdominal distension (gaseous); K59.01 Slow transit constipation; Z01.818 Encounter for other preprocedural examination
CPT/HCPCS: 99213

== ENCOUNTER → 2023-10-18 15:15 | Outpatient (BNVA) | payer MEDICAID, SELFPAY | PROVIDERS: PCP Nurse Practitioner Family; Visit Provider Nurse Practitioner Family | DX: K58.9 Irritable bowel syndrome, unspecified (principal); R14.0 Abdominal distension (gaseous); K59.01 Slow transit constipation; Z79.899 Other long term (current) drug therapy | CPT/HCPCS: 99212 ==

== ENCOUNTER 2023-10-20 10:00 | Outpatient (RCR) | payer MEDICAID, SELFPAY ==
--- NOTE | 2023-06-23 15:45 | MHC.PT.EP ---
[facility] [place] [facility] [place] Office [place] Office [address] Torey Oroepza [address] [phone] F: [phone] F: [phone] F: [phone] F: [phone] Physical Therapy Plan of Care Date of Evaluation: 06/23/23 Date of Surgery: 06/16/23 Diagnosis: ACL ALLOGRAPH WITH MENISCAL REPAIR (KP) Assessment: CRISTIANA PRESENTS POD 7 FOR ORTHOPEDIC FOLLOW UP AND PT EVALUATION. UPON EXAM SHE DEMONSTRATES THE EXPECTED IMPAIRMENTS OF DECREASED ROM, DECREASED STRENGTH, ALTERED POSTURE AND POSITIONING,ALTERED GAIT AND BALANCE, AND INCREASED PAIN AND EDEMA. FUNCTIONAL LIMITATIONS INCLUDE DECREASED ABILITY TO PERFORM HOMEMAKING AND SELF-CARE TASKS, DECREASED ABILITY TO PERFORM WALKING, RUNNING, JUMPING AND SQUATTING, INABILITY TO DRIVE AND PERFORM WORK TASKS, DECREASED PARTICIPATION IN COMMUNITY AND RECREATIONAL ACTIVITIES AND DISRUPTED SLEEP. THE Pt IS A GOOD CANDIDATE FOR SKILLED PT DUE TO AGE, POTENTIAL REMEDIATION OF IMPAIRMENTS, TYPICAL DISEASE/CONDITION PROGRESSION AND PROGNOSIS, COMORBIDITIES, AND MOTIVATION. PT WOULD BENEFIT FROM TAILORED PROGRAM OF THERAPEUTIC ACTIVITIES, FUNCTIONAL TRAINING, GAIT TRAINING, POSTURAL EDUCATION, NEUROMUSCULAR RE-EDUCATION, AND MODALITIES NEEDED. Frequency and Duration: The patient will be seen 2 X WEEK X 12 WEEKS Short Term Goals: INITIATE HEP AND PROMOTE SELF MANAGEMENT OF SYMPTOMS Custodial Goals: TO DEMONSTRATE FULL KNEE ROM, EQUAL DEA TO DEMONSTRATE FULL LE STRENGTH, EQUAL DEA TO ASCEND AND DESCEND STAIRS WITH RECIPROCAL GAIT WITHOUT PAIN GREATER THAN 2/10 Treatment Plan: Modalities to reduce pain, spasms and effusion. Manual therapy to restore motion and function. Therapeutic exercise to improve strength and flexibility. Neuromuscular re-education for posture and balance. Therapeutic activities to return to functional activities of daily living. Electronically signed by: RADHA RODRIGUEZ PT DPT Please sign and return to therapist. Thank you for your referral.
== END 2023-11-18 15:27 | disposition home or self-care (01) ==
LOC: HO.PT 10:00
PROVIDERS: PCP Nurse Practitioner Family; Visit Provider Orthopaedic Surgery
DX: S83.512A Sprain of anterior cruciate ligament of left knee, initial encounter (principal)
CPT/HCPCS: 97110; 97112; 97116; 97140; 97161; 97530

== ENCOUNTER 2024-01-12 08:47 | Day surgery (SDC) | payer MEDICAID, SELFPAY ==
--- NOTE | 2024-01-11 09:06 | P.CONAN_ITS ---
Documented by User: Estrella Ramesh NP 01/11/24 09:07 HPI - Anesthesia Eval Consult details Narrative: 38yo F for Upper Endoscopy and Colonoscopy s/p ACL repair 05/2023 with GA and block Anesthesia Pre-Procedure Meds Is the patient on any of the following meds?: GLP1/DPP4 PMFSH Active Problems Active Problems: All Active Problems S/P medial meniscal repair (Acute) ACL (anterior cruciate ligament) tear (Acute) Left knee pain (Acute) Past Medical History Medical History Diabetes Family History Family history of problems with anesthesia: No Surgical History Surgical History Hx laparoscopic cholecystectomy Hx of breast reduction, elective History of Problems with Anesthesia: No Social History Social History Are you a primary healthcare account manager to a significant other at home: No Do you presently have visiting nurse or other home services: No Patient Tobacco Use Status: Never used Tobacco Current occupational status: unemployed Meds Allergies Allergy/AdvReac Type Severity Reaction Status Date / Time cinnamon Allergy Intermediate Hives Verified 10/18/23 15:25 peanut Allergy Mild Unknown Verified 10/18/23 15:25 Home Medications ?Medication ?Instructions ?Recorded ?Confirmed ?Last Taken ?Type bupropion HCl 300 mg 24 hr tablet, 300 mg PO QAM 03/30/23 06/10/23 Unknown History extended release cetirizine 10 mg tablet 10 mg PO QAM 03/30/23 06/10/23 Unknown History clonidine HCl 0.1 mg tablet 0.1 mg PO BEDTIME anxiety 03/30/23 06/10/23 Unknown History dulaglutide 1.5 mg/0.5 mL 1.5 mg subcut QWEEK 03/30/23 06/10/23 05/12/23 History subcutaneous pen injector (Trulicity) hydroxyzine HCl 10 mg tablet 10 mg PO TID PRN anxiety 03/30/23 06/10/23 Unknown History diclofenac sodium 25 mg 25 mg PO BID 05/31/23 06/10/23 Unknown History tablet,delayed release nabumetone 500 mg tablet 500 mg PO BID PRN Headache 06/10/23 06/10/23 Unknown History escitalopram oxalate 20 mg tablet 20 mg PO QAM 09/07/23 Unknown History guanfacine 1 mg tablet,extended 1 mg PO QAM anxiety 09/07/23 Unknown History release 24 hr escitalopram oxalate 5 mg tablet 5 mg PO DAILY 10/18/23 Unknown History Assessment and Plan Assessment Anesthesia Assessment: Chart Reviewed Final Anesthetic Review Family History of Problems with Anesthesia: No History of Problems with Anesthesia: No Documented by User: Mega Vann MD 01/12/24 10:15 PMF Past Medical History Medical History Diabetes Patient : No Surgical History Surgical History Hx laparoscopic cholecystectomy Hx of breast reduction, elective Social History Social History Are you a primary healthcare account manager to a significant other at home: No Do you presently have visiting nurse or other home services: No Patient Tobacco Use Status: Never used Tobacco Current occupational status: unemployed Meds Allergies Allergy/AdvReac Type Severity Reaction Status Date / Time cinnamon Allergy Intermediate Hives Verified 10/18/23 15:25 peanut Allergy Mild Unknown Verified 10/18/23 15:25 Home Medications ?Medication ?Instructions ?Recorded ?Confirmed ?Last Taken ?Type bupropion HCl 300 mg 24 hr tablet, 300 mg PO QAM 03/30/23 06/10/23 Unknown History extended release cetirizine 10 mg tablet 10 mg PO QAM 03/30/23 06/10/23 Unknown History clonidine HCl 0.1 mg tablet 0.1 mg PO BEDTIME anxiety 03/30/23 06/10/23 Unknown History dulaglutide 1.5 mg/0.5 mL 1.5 mg subcut QWEEK 03/30/23 06/10/23 05/12/23 History subcutaneous pen injector (Trulicity) hydroxyzine HCl 10 mg tablet 10 mg PO TID PRN anxiety 03/30/23 06/10/23 Unknown History diclofenac sodium 25 mg 25 mg PO BID 05/31/23 06/10/23 Unknown History tablet,delayed release nabumetone 500 mg tablet 500 mg PO BID PRN Headache 06/10/23 06/10/23 Unknown History escitalopram oxalate 20 mg tablet 20 mg PO QAM 09/07/23 Unknown History guanfacine 1 mg tablet,extended 1 mg PO QAM anxiety 09/07/23 Unknown History release 24 hr escitalopram oxalate 5 mg tablet 5 mg PO DAILY 10/18/23 Unknown History Exam Airway Mallampati Class: II TM Dist: <=3cm Neck ROM: Full Loose/Missing/Broken Teeth: No Heart: ok Lungs: ok Assessment and Plan Assessment Anesthesia Assessment: Anesthesia Plan Discussed Final Anesthetic Review NPO: Yes ASA Class: II Final Preanesthetic Review: No Changes in Pt Med Stat, Meds/Allgs Chart Reviewed, Consent Obtained/Reviewed and Anes Risks/Benef Reviewed Patient Risk: Intermediate Procedure Risk: Intermediate Anesthetic Plan Anesthetic Plan: Agree w/ Assess. and Plan and TIVA Disposition: Standard PACU
[2024-01-12 09:09] VITALS: BP 112/72; PULSE 80; RESP 16; TEMP 36.7; O2SAT 100; BMI 31.4
[2024-01-12] MEDS: Lactated Ringers 1,000 ML 100 ML IVCONT (09:22)
[2024-01-12 09:27] LABS: Glucose, Whole Blood 139 mg/dL (60-115)
--- NOTE | 2024-01-12 09:27 | MHC.SHP ---
Pre-Procedural Eval Section A - 24 Hr Update-Section A only Date of Service: 01/12/24 Section B - Complete if H&P > 30 days Chief Complaint: GERD, colo screening Details of Present Illness: FH CRC in mother Relevant Family History (Specify if Yes): Yes Relevant Social History: None Present Medications: see Short Stay Collaborative assessment Medical History: Significant History (Diabetes) History of Previous Operations: Relevant previous surgery/procedure and date(s) (Hx laparoscopic cholecystectomy Hx of breast reduction, elective) Allergies: Allergies Allergy/AdvReac Type Severity Reaction Status Date / Time cinnamon Allergy Intermediate Hives Verified 10/18/23 15:25 peanut Allergy Mild Unknown Verified 10/18/23 15:25 Review of Systems Sugical H&P ROS: Negative: Constitution, Cardiovascular, Respiratory, Neurological, Psychiatric, Hem-Onc, Allergic/Immunologic, Gastrointestinal, Genitourinary, Musculoskeletal, Integumentary, Endocrine and Eyes/Ears/Nose/Throat Exam Surgical H&P Exam: Normal: HEENT, Normal: Heart, Normal: Lungs, Normal: Extremities, Normal: Abdomen, Normal: Skin and Normal: Neurological Plan Diagnosis/Plan: Unchanged I have reviewed the history and physical and performed a pertinent physical examination on my patient. No changes have occurred unless specified. Time Spent With Patient Time: Total time managing care of this patient today ____ minutes.
[2024-01-12 09:31] LABS: UPreg QC Valid YES; Urine Pregnancy NEGATIVE (NEGATIVE)
--- NOTE | 2024-01-12 10:25 | P.OPN-COLO_ITS ---
Colonoscopy Operative Note Operative Note Date of Service: 01/12/24 Narrative: Operative Information Procedure Description: EGD, Colonoscopy Indication: GERD, FH of CRC Anesthesia: MAC FLEXIBLE TRANSORAL UPPER GASTROINTESTINAL ENDOSCOPY AND COLONOSCOPY PROCEDURE NOTE UPPER ENDOSCOPY Consent: Indications for the procedure and potential complications of bleeding, perforation, reaction to medications and missed diagnosis were discussed with the patient and informed consent was obtained. Instrument: Olympus GIF H 190 J mid size upper endoscope Monitoring: Vital signs and clinical assessment, continuous EKG monitoring, Pulse oximetry, Carbon Dioxide monitoring and blood pressure monitoring were done throughout the procedure. Procedure: The patient was placed in the left lateral decubitis position and pre-procedure medications were administered and a bite block was placed. The endoscope was inserted into the mouth and advanced under direct vision to the third part of duodenum. A careful inspection was made as the upper endoscope was withdrawn including a retroflexed examination of the proximal stomach; Findings and interventions are described below. Findings: Larynx:normal Esophagus: GE junction at 35 cm, diaphragm hiatus at 35 cm, scattered white patches possible terra, bx taken from distal and proximal esophagus, GEJ Stomach: Mild patchy erythema. Biopsies were obtained. Grade 2 flap valve on retroflexed examination of the cardia. Duodenum: Mild bulbar duodenitis, bx taken Intervention: Biopsies as noted above, COLONOSCOPY Instrument: Olympus variable stiffness pediatric scope 190L Colonoscopy Monitoring: Vital signs and clinical assessment, continuous EKG monitoring, Pulse oximetry, Carbon Dioxide monitoring and blood pressure monitoring were done throughout the procedure. Colon withdrawal time was 8 minutes. Procedure: The patient was placed in the left lateral decubitis position and pre-procedure medications were administered. After a digital rectal examination of the ano-rectum, the video colonoscope was inserted into the rectum and advanced through the colon to the cecum/TI. The colonoscope was slowly withdrawn in a retrograde panoramic fashion and the colon mucosa was carefully examined including a retroflexed view of the rectum. Findings and interventions are described below. Procedure Difficulty:moderate Findings: Terminal Ileum-normal Cecum:normal Right sided retroflexion- normal Ascending Colon: normal Transverse Colon -normal Descending Colon:normal Sigmoid Colon: normal Rectum: Retroflexion with small internal hemorrhoids, grade I Anorectum - normal Colon preparation: [place] Bowel Preparation Scale Right colon; 1-2 Transverse colon: 1-2 Left colon; 1-2 (0 = Unprepared colon segment with mucosa not seen due to solid stool that cannot be cleared. 1 = Portion of mucosa of the colon segment seen, but other areas of the colon segment not well seen due to staining, residual stool and/or opaque liquid. 2 = Minor amount of residual staining, small fragments of stool and/or opaque liquid, but mucosa of colon segment seen well. 3 = Entire mucosa of colon segment seen well with no residual staining, small fragments of stool or opaque liquid) Impression and Post Procedure Diagnosis: Endoscopy Findings: mild gastritis mild duodenitis possible terra Colonoscopy Findings: internal hemorrhoids Plan: Await Pathology results Repeat Colonoscopy in 1 year due to fair prep or earlier if clinically indicated High fiber diet leaflet avoid straining at stool, epsom salts and sitz bath, anusol supps or cream if terra confirmed then fluconazole for 2-3 weeks Above findings were reviewed with the patient and relevant handouts were provided if indicated.
[2024-01-12 10:45] VITALS: BP 89/42; PULSE 76; RESP 18; TEMP 36.2; O2SAT 97
[2024-01-12 11:00] VITALS: BP 114/72; PULSE 74; RESP 18; TEMP 36.1; O2SAT 100
== END 2024-01-12 11:29 | disposition home or self-care (01) ==
PROVIDERS: Nurse Practitioner; PCP Nurse Practitioner Family; Visit Provider Internal Medicine Gastroenterology
PROC: (CPT 43239; principal; 2024-01-12 09:50)
DX: K20.90 Esophagitis, unspecified without bleeding (principal); K29.80 Duodenitis without bleeding; K29.70 Gastritis, unspecified, without bleeding; K21.9 Gastro-esophageal reflux disease without esophagitis; Z12.11 Encounter for screening for malignant neoplasm of colon; K64.0 First degree hemorrhoids; Z80.0 Family history of malignant neoplasm of digestive organs; K59.00 Constipation, unspecified; E11.9 Type 2 diabetes mellitus without complications; Z79.85 Long-term (current) use of injectable non-insulin antidiabetic drugs
CPT/HCPCS: 43239; 45378; 81025; 82947; 88305; 88312; 88313; 88342; J2704

== ENCOUNTER → 2024-01-12 08:47 | Outpatient (BNV) | payer MEDICAID, SELFPAY | PROVIDERS: PCP Nurse Practitioner Family; Visit Provider Internal Medicine Gastroenterology | DX: Z12.11 Encounter for screening for malignant neoplasm of colon (principal); Z80.0 Family history of malignant neoplasm of digestive organs; K64.0 First degree hemorrhoids; Z91.199 Patient's noncompliance with other medical treatment and regimen due to unspecified reason; K21.00 Gastro-esophageal reflux disease with esophagitis, without bleeding; K29.80 Duodenitis without bleeding; K29.70 Gastritis, unspecified, without bleeding | CPT/HCPCS: 43239; 45378 ==

== ENCOUNTER 2024-01-24 12:19 | Outpatient (AMB) | payer MEDICAID, SELFPAY ==
[2024-01-24 12:21] VITALS: BP 116/74; PULSE 82; O2SAT 98; BMI 30.8
--- NOTE | 2024-01-24 12:21 | MHC.OFFVIS ---
Vital Signs 01/24/24 12:21 Height 5 ft 1 in Weight 163 lb 2.273 oz BMI 30.8 BP 116/74 Blood Pressure Location Lt brachial Position Sitting Pulse 82 Pulse Source Pulse Oximeter Pulse Oximetry (%) 98 Oxygen Delivery Method Room Air Intake Visit Reasons: s/p egd/colon Intake Note: Iraida presents in office today for a scheduled s/p FUV. CC; Pt reports that they are here to discuss the results of their procedure. Pt denies any new concerns or sx post op. Pt reports that they believe they need a refill of pantoprazole. 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 Avoid dietary triggers. Staying upright for minimum 3 hours after meals discussed with patient. Patient will be sent for upper endoscopy to rule out esophagitis, H pylori, Case's. Patient will also go for colonoscopy. Postprandial abdominal bloating improved. Patient is moving her bowels better now. Due to change in bowel pattern as well as family history of CRC. Patient's mom was diagnosed with stage IV cancer in her 60s. Patient denies any melena, hematochezia, unintentional weight loss or ribbon like stools. Patient denies any issues with anesthesia in the past. No history of sleep apnea. Not on any anticoagulation medication. Patient admits that she is on Trulicity, however she is not taking the medication only if she feels like she needs it. Please make sure that patient is not going to be taking that is specially for minimum 7 days before procedure. I will see her after the procedure, sooner on as needed basis. Patient is agreeable to this plan and verbalizes understanding of instructions. She was given the opportunity to ask questions and all questions answered. ? Thank you for allowing me to participate in her care Medications New bisacodyl (Dulcolax (bisacodyl)) take 4 tabs at noon the day before your colonoscopy 20 mg (4 x 5 mg) PO ONCE 4 tabs 0RF 1 day Z12.11 polyethylene glycol 3350 (Miralax) As directed by gastroenterology department at [facility] 238 grams PO ONCE 238 grams 0RF Z12.11 UPPER ENDOSCOPY AND COLONOSCOPY Upper endoscopy Findings: Larynx:normal Esophagus: GE junction at 35 cm, diaphragm hiatus at 35 cm, scattered white patches possible terra, bx taken from distal and proximal esophagus, GEJ Stomach: Mild patchy erythema. Biopsies were obtained. Grade 2 flap valve on retroflexed examination of the cardia. Duodenum: Mild bulbar duodenitis, bx taken Intervention: Biopsies as noted above, Colonoscopy Findings: Terminal Ileum-normal Cecum:normal Right sided retroflexion- normal Ascending Colon: normal Transverse Colon -normal Descending Colon:normal Sigmoid Colon: normal Rectum: Retroflexion with small internal hemorrhoids, grade I Anorectum - normal Colon preparation: [place] Bowel Preparation Scale Right colon; 1-2 Transverse colon: 1-2 Left colon; 1-2 (0 = Unprepared colon segment with mucosa not seen due to solid stool that cannot be cleared. 1 = Portion of mucosa of the colon segment seen, but other areas of the colon segment not well seen due to staining, residual stool and/or opaque liquid. 2 = Minor amount of residual staining, small fragments of stool and/or opaque liquid, but mucosa of colon segment seen well. 3 = Entire mucosa of colon segment seen well with no residual staining, small fragments of stool or opaque liquid) Impression and Post Procedure Diagnosis: Endoscopy Findings: mild gastritis mild duodenitis possible terra Colonoscopy Findings: internal hemorrhoids Plan: Await Pathology results Repeat Colonoscopy in 1 year due to fair prep or earlier if clinically indicated High fiber diet leaflet avoid straining at stool, epsom salts and sitz bath, anusol supps or cream if terra confirmed then fluconazole for 2-3 weeks PATHOLOGY RESULTS Addendum Addendum #1 H. pylori immunostain is negative (B); no metaplastic changes are see in part C, supported by AB/PAS stains (focus of intestinal metaplasia see on the H&E slide is no longer present on the deeper level used for special stains); no fungi are seen in part E, supported by PAS stain. No changes are made to the diagnoses. Electronically Signed By: Chaitanya Maya MD 01/17/24 0910 Diagnosis A. Duodenum, biopsy: Duodenal mucosa with predominantly preserved villi and focal mild changes compatible with chronic/non-specific duodenitis. B. Stomach, biopsy: Gastric body mucosa with minimal chronic inactive gastritis and gastric antral mucosa with mild-moderate chronic active gastritis; negative for intestinal metaplasia. C. Esophagogastric junction, biopsy: Squamocolumnar mucosa with mild chronic inflammation and rare goblet cells and Paneth cells compatible with intestinal metaplasia; negative for dysplasia. D. Esophagus, distal, biopsy: Squamous mucosa with no specific change; no columnar mucosa present. E. Esophagus, proximal, biopsy: Squamous mucosa with intraepithelial neutrophils consistent with active esophagitis; no columnar mucosa present. Comment: (B): Immunostain for H. pylori pending; addendum to follow. (C): Additional level with AB/PAS stain pending; addendum to follow. (E): PAS-F pending; addendum to follow TODAY'S VISIT Patient is here today for follow-up and to discuss upper endoscopy and colonoscopy results. Patient denies any ill effects from the prep, anesthesia or procedure itself, however patient had suboptimal prep and needs to colonoscopy in 1 year upper endoscopy showed mild to moderate chronic active gastritis seen in her stomach esophageal junction showed chronic inflammation with intestinal metaplasia negative for dysplasia. Active esophagitis seen on biopsy. Patient reports that she is taking pantoprazole daily and her symptoms of acid reflux are suppressed. Patient is taking senna on as-needed basis. Continues to be constipated if she is not taking Senokot. Patient denies any nausea or vomiting. Patient denies melena, hematochezia. Patient denies dyspepsia, dysphagia or odynophagia PFSH Medical History Diabetes Surgical History Hx laparoscopic cholecystectomy Hx of breast reduction, elective Social History Are you a primary day care teacher to a significant other at home: No Do you presently have visiting nurse or other home services: No Patient Tobacco Use Status: Never used Tobacco Current occupational status: unemployed Review of Systems Const Denies weight gain and Denies weight loss ENT Reports no additional complaints, Denies dysphagia and Denies odynophagia Card Reports no additional complaints Resp Reports no additional complaints GI Denies abdominal pain, Denies belching, Denies melena, Reports bloating, Denies change in bowel habits, Reports constipation (Occasional), Denies dysphagia, Denies excessive flatus, Denies dyspepsia, Denies heartburn, Denies diarrhea, Denies loose stools, Denies nausea, Denies odynophagia and Denies vomiting Reports no additional complaints Musc Reports no additional complaints Neuro Reports no additional complaints Psych Reports no additional complaints Endo Reports no additional complaints Physical Exam Const General: healthy appearing and no acute distress Nutritional Appearance: obese Orientation/consciousness: patient oriented x3 Resp Effort & Inspection: normal respiratory effort, able to speak in complete sentences, no tracheal deviation and symmetric chest movement Auscultation: clear to auscultation bilaterally Cardio Rate: regular rate GI Inspection: Yes normal to inspection, No distended and Yes obesity Palpation (GI): Soft to palpation, not firm, nontender and No hepatosplenomegaly present Auscultation: normal bowel sounds General: Yes no CVA tenderness Back/Spine/Pelvis Back: no CVA tenderness Skin General skin exam: elasticity normal, turgor normal and dry skin Neuro General: patient oriented x3 Psych Appearance: grossly normal Mental Status: mental status grossly normal Assessment & Plan Assessment & Plan (1) IBS (irritable bowel syndrome): Code(s): K58.9 - Irritable bowel syndrome without diarrhea Qualifiers: Irritable bowel syndrome type: without diarrhea Qualified Code(s): K58.9 - Irritable bowel syndrome without diarrhea (2) Postprandial abdominal bloating: Code(s): R14.0 - Abdominal distension (gaseous) (3) Constipation: Code(s): K59.00 - Constipation, unspecified Qualifiers: Constipation type: slow transit constipation Qualified Code(s): K59.01 - Slow transit constipation Plan Continue pantoprazole daily. Avoid dietary triggers and late night snacking. Staying upright for minimum 3 hours after meals discussed with patient. Continue taking senna daily. Increase fluid intake and activity to promote better bowel motility. Follow-up in the office in 6 months, sooner on as needed basis. Will repeat colonoscopy in 1 year due to suboptimal prep. She is agreeable to this plan and verbalizes understanding of instructions. She was given the opportunity to ask questions and all questions answered. Thank you for allowing me to participate in her care Medications: Refilled pantoprazole take one tablet half an hour before breakfast 40 mg PO DAILY 30 tabs 2RF K21.9 - Gastro-esophageal reflux disease without esophagitis sennosides (Natural Senna Laxative) 17.2 mg (2 x 8.6 mg) PO BEDTIME 60 tabs 3RF constipation K59.00 - Constipation, unspecified Coding Level of Care Code Est Pt Level 3 (58175) Diagnoses Irritable bowel syndrome without diarrhea K58.9 Irritable bowel syndrome type: without diarrhea Postprandial abdominal bloating R14.0 Slow transit constipation K59.01 Constipation type: slow transit constipation Time Spent (min) 30 Comment 20 minutes spent with patient and additional 10 minutes spent reviewing her records
== END 2024-01-24 13:04 | disposition home or self-care (01) ==
PROVIDERS: PCP Nurse Practitioner Family; Visit Provider Nurse Practitioner Family
DX: K58.1 Irritable bowel syndrome with constipation (principal); R14.0 Abdominal distension (gaseous)
CPT/HCPCS: 99213

== ENCOUNTER → 2024-01-24 12:19 | Outpatient (BNVA) | payer MEDICAID, SELFPAY | PROVIDERS: PCP Nurse Practitioner Family; Visit Provider Nurse Practitioner Family | DX: K58.9 Irritable bowel syndrome, unspecified (principal); R14.0 Abdominal distension (gaseous); K59.01 Slow transit constipation | CPT/HCPCS: 99212 ==

== ENCOUNTER 2024-03-02 | Outpatient (REF) | payer MEDICAID, SELFPAY ==
[2024-03-16 11:17] LABS: HPV 16,18/45 See PAP report
== END 2024-03-02 00:01 | disposition home or self-care (01) ==
LOC: HO.LNP
PROVIDERS: Visit Provider Advanced Practice Midwife
DX: Z12.4 Encounter for screening for malignant neoplasm of cervix (principal); Z11.51 Encounter for screening for human papillomavirus (HPV)
CPT/HCPCS: 87624; 88175

== ENCOUNTER 2024-04-12 12:07 | Outpatient (REF) | payer MEDICAID, SELFPAY | END 2024-04-12 12:08 | disposition home or self-care (01) | LOC: HO.MAMMO 12:07 | PROVIDERS: PCP Nurse Practitioner Family; Visit Provider Advanced Practice Midwife | DX: Z12.31 Encounter for screening mammogram for malignant neoplasm of breast (principal) | CPT/HCPCS: 77063; 77067 ==

== ENCOUNTER → 2024-04-12 12:15 | Outpatient (BNV) | payer MEDICAID, SELFPAY | PROVIDERS: PCP Nurse Practitioner Family; Visit Provider Internal Medicine | DX: Z12.31 Encounter for screening mammogram for malignant neoplasm of breast (principal) | CPT/HCPCS: 77063; 77067 ==

== ENCOUNTER 2024-06-16 17:31 | Outpatient (REF) | payer MEDICAID, SELFPAY ==
--- OUTSIDE RECORDS SUMMARY | 2024-06-16 17:33 | XMS_ITS | Clinical Summary ---
Author Organization [facility] Address [address] [place] [address] Care Team Providers Care [employer] Team Member Name Role Phone Unavailable Primary Care Provider Unavailabl e Source Comments PLEASE NOTE, if this patient is a minor, it may be UNLAWFUL to discuss sensitive information that is contained in these records (such as FAMILY PLANNING, MENTAL HEALTH or SUBSTANCE ABUSE) with the minor patient's parent or other person without the patient's specific authorization.[facility] Social History Tobacco Use Types Packs/Day Years Used Date Smoking Tobacco: Never Assessed Comments Unknown Sex and Gender Information Value Date Recorded Sex Assigned at Not on file Legal Sex Female 8:34 AM PST Gender Identity Not on file Sexual Orientation Not on file Plan of Treatment Not on file
--- OUTSIDE RECORDS SUMMARY | 2024-06-16 17:33 | XMS_ITS | Clinical Summary ---
Author Organization [facility] [address] it Address [address] [place] [address] Care Team Providers Care Administrative Office Manager Name Role Phone Unavailable Primary Care Provider Unavailabl e Social History Tobacco Use Types Packs/Day Years Used Date Smoking Tobacco: Never Assessed Comments Unknown Sex and Gender Information Value Date Recorded Sex Assigned at Not on file Legal Sex Female 1:51 PM EST Gender Identity Not on file Sexual Orientation Not on file Plan of Treatment Health Maintenance Due Date Last Done Comments Breast Cancer Screening 1983 DTaP,Tdap,and Td Vaccines (1 - Tdap) 08/21/2002 Hepatitis B Vaccines (1 of 3 - 19+ 3-dose series) 08/21/2002 Cervical Cancer Screening: P ap Smear 08/21/2004 COVID-19 Vaccine ( - 2023-2 5 season) 2023 Influenza Vaccine (#1) 2023 HIB Vaccines Aged Out No longer eligi ble based on patient's age to complete this topic HPV Vaccines Aged Out No longer eligi ble based on patient's age to complete this topic Hepatitis A Vaccines Aged Out No long er eligible based on patient's age to complete this topic IPV Vaccines Aged Out No longer eligi ble based on patient's age to complete this topic MMR Vaccines Aged Out No longer eligi ble based on patient's age to complete this topic Meningococcal ACWY Vaccine Aged Out N o longer eligible based on patient's age to complete this topic Meningococcal B Vacine Aged Out No lo nger eligible based on patient's age to complete this topic Pneumococcal Vaccine: Pediat rics (0 to 5 Years) and At-Risk Patients (6 to 64 Years) Aged Out No longer eligible b ased on patient's age to complete this topic RSV Immunization Patients Un [place] 20 months Aged Out No longer eligible b ased on patient's age to complete this topic Varicella Vaccines Aged Out No longer eligible based on patient's age to complete this topic
--- OUTSIDE RECORDS SUMMARY | 2024-06-16 17:33 | XMS_ITS | Encounter Summary ---
Author Organization [employer] Address [address] 7 [place] [address] Care Team Providers Care Mine Motor Engineer Name Role Phone Anupama Black MD Primary Care Provider [phone] Reason for Visit * Reason Comments Difficulty Urinating Encounter Details Date Type Department Care Team ([facility] st Contact Info) Description 06/16/2024 3:00 PM EST Office Visit [facility] [address], [place] [id number] Name, MD Darnell [address] [place] [address] Dysuria (Primary Dx); Urinary frequency; Vaginal discharge; Suprapubic discomfort Social History Tobacco Use Types Packs/Day Years Used Date Smoking Tobacco: Never Passive Smoke Exposure: Never Smokeless Tobacco: Never Alcohol Use Standard Drinks/Week Comments Not Currently 0 (1 standard drink = 0.6 oz pur e alcohol) occasional Depression Answer Date Recorded Patient Health Questionnaire-9 Score 9 07/19/2023 Patient Health Questionnaire-9 Score 9 07/19/2023 Last PHQ-9: Questionnaire Data Not on file 0 07/19/2023 Housing Stability Answer Date Recorded What is your housing situation today? I have taryn swanson 07/19/[address] you li ve. Do you have problems with any of the following? None of the above 07/19/2023 Food Insecurity Answer Date Recorded Within the past 12 months, y ou worried that your food would run out before you got money to buy more: Never True 07/19/2023 Within the past 12 months,th e food you bought just didn't last and you didn't have enough money to get more: Never True Transportation Answer Date Recorded In the past 12 months, has l ack of transportation kept you from medical appts, meetings, work or from getting things needed for daily living? No 07/19/2023 Utilities Answer Date Recorded In the past 12 months, has t he electric, gas, oil or water company threatened to shut off services in your home? No 07/19/2023 Depression Answer Date Recorded Patient Health Questionnaire-2 Score 3 07/19/2023 Education Answer Date Recorded What is the highest level of school you have completed or the highest degree you have received? 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 Not on file Not on file Not on file documented as of this encounter Last Filed Vital Signs Vital Sign Reading Time Taken Comments Blood Pressure 115/84 06/16/2024 2:59 PM EST Pulse 85 06/16/2024 2:59 PM EST Temperature 36.6 ??C (97.9 ??F) 06/16/2024 2:59 PM ES T Respiratory Rate 18 06/16/2024 2:59 PM EST Oxygen Saturation 100% 06/16/2024 2:59 PM EST Inhaled Oxygen Concentration - - Weight 76.8 kg (169 lb 6.4 oz) 06/16/2024 2:59 P M EST Height - - Body Mass Index 32.01 03/02/2024 10:24 AM EST documented in this encounter Progress Notes * Darnell Blake, - 06/16/2024 3:00 PM EST Subjective Patient ID: Iraida Basilio is a 38 y.o. female who presents for Difficulty Urinating. Patient has one day of dysuria, urinary frequency and hesitancy, suprapubic discomfort No fever, no chills and no CV angle discomfort. She has about a week of clear vaginal discharge She is sexually active and does not use condoms No recent sexual activity and she had her menstrual period last week Review of Systems Constitutional: Negative for chills and fever. HENT: Negative for sore throat. Respiratory: Negative for cough, shortness of breath and wheezing. Cardiovascular: Negative for chest pain, palpitations and leg swelling. Gastrointestinal: Negative for abdominal pain. Genitourinary: See HPI Visit Vitals BP 115/84 (BP Location: Left arm, Patient Position: Sitting, BP Cuff Size: Adult) Pulse 85 Temp 97.9 ??F (36.6 ??C) (Oral) Resp 18 Wt 169 lb 6.4 oz (76.8 kg) SpO2 100% BMI 32.01 kg/m?? OB Status Having periods Smoking Status Never BSA 1.82 m?? Objective Physical Exam Constitutional: General: She is not in acute distress. Appearance: She is not toxic-appearing. Cardiovascular: Rate and Rhythm: Normal rate and regular rhythm. Pulmonary: Effort: Pulmonary effort is normal. No respiratory distress. Abdominal: Palpations: Abdomen is soft. Urine dip with trace blood only Assessment/Plan Diagnoses and all orders for this visit: Dysuria Comments: I will treat empirically with a course of Bactrim for UTI, she is recommended to drink lots of water, check testing listed below for BV, GC, Chlamydia and yeast. Further recommendations based on the results and response to the med. Urinary frequency Vaginal discharge - Bacterial Vaginosis - Chlamydia/N. Gonorrhoeae RNA, TMA, Urogenitial Suprapubic discomfort Other orders - sulfamethoxazole-trimethoprim (Bactrim DS) 800-160 MG tablet; Take 1 tablet by mouth 2 times daily for 3 days. documented in this encounter Plan of Treatment Upcoming Encounters Date Type Department Care Team (Late st Contact Info) Description 07/05/2024 2:00 PM EDT Office Visit [facility] [address] [place] [address] Anupama Black MD [address] [place] [address] Scheduled Orders Name Type Priority Associated Diagnoses Orde r Schedule Bacterial Vaginosis Microbiology Routine Vaginal discharge Ordered: 06/16/2024 Chlamydia/N. Gonorrhoeae RNA, TMA, Urogenitial Microbiology Routine Vaginal discharge Ordered: 06/16/2024 documented as of this encounter Visit Diagnoses Diagnosis Dysuria- Primary Urinary frequency Vaginal discharge Leukorrhea, not specified as infective Suprapubic discomfort Abdominal pain, other specified site documented in this encounter Additional Health Concerns Assessment Noted Time PHQ-9 Depression Total Score: 9 07/19/19 24 11:43 AM EDT documented as of this encounter Care Teams Mine Motor Engineer Relationship Specialty Start Date End Date Anupama Black MD [address] [place] [id number] PCP - General Family Medicine 12/28/23 documented as of this encounter
--- OUTSIDE RECORDS SUMMARY | 2024-06-16 17:33 | XMS_ITS | Clinical Summary ---
Author Organization [employer] Address [address] [facility] 7[address] [place] [address] Care Team Providers Care Spout Liner Name Role Phone Anupama Black MD Primary Care Provider [phone] Allergies Active Allergy Reactions Criticality Noted Date Comments Flavoring Agent (Non-Screening) Hives 09/2022 Medications hydrocortisone 2.5 % cream apply by topical route 2 times every day a thin layer to the affected area(s) for two weeks only 2 Active Alcohol Swabs (Alcohol Prep) pads Active Lancets 28G misc Act amauri nabumetone (Relafen) 500 MG tablet Take 1 tablet by mouth if needed in the morning and at bedtime for headaches. WITH FOOD. TRY TO LIMIT TO 2X PER WEEK 1 Active diclofenac (Voltaren) 25 MG EC tabletIndication s:Right knee injury, initial encounter TAKE 1 TABLET BY MOUTH TWICE A DAY. DO NOT CRUSH, CHEW OR SPLIT. 60 tablet 11 4 Active dulaglutide (Trulicity) 1.5 MG/0.5ML solution pen-injector Inject 1.5 mg under the skin 1 (one) time per week. 4 pen 11 4 Active diphenhydrAMINE (BENADryl) 25 MG tablet 1-2 tab po bid prn rash/pruritus x 4d 15 tablet 4 Active betamethasone valerate (Valisone) 0.1 % cream Apply topically if needed in the morning and at bedtime (dryness). 45 g 2 4 Active levocetirizine (Xyzal) 5 MG tablet TAKE 1 TABLET BY MOUTH EVERY EVENING 90 tablet 4 Active glucose blood (FREESTYLE LITE) test stripIndications :Type 2 diabetes mellitus with other specified complication, unspecified whether alf insulin use ([facility]) 1 each by Other route 3 times daily. TEST BLOOD SUGARS 3 TIMES A DAY 100 each 11 4 Active escitalopram (Lexapro) 20 MG tablet Take 20 mg by mouth Once per day. Active guanFACINE (Tenex) 1 MG tablet Take 1 mg by mouth at bedtime. Active hydrOXYzine HCl (Atarax) 10 MG tablet Take 10 mg by mouth 1 (one) time. Active pantoprazole (ProtoNix) 40 MG EC tablet Take 40 mg by mouth before breakfast. Do not crush, chew, or split. Active senna-docusate sodium (Senokot-S) 8.6-50 MG tablet Take 1 tablet by mouth Once per day. Active ulipristal (Мария) 30 mg tablet Take one tablet by mouth up to five days after sex. Do not use more than once per menstrual cycle. If repeat dose is needed in same cycle, please contact prescriber. 1 tablet 11 4 Active sulfamethoxazole -trimethoprim (Bactrim DS) 800-160 MG tablet Take 1 tablet by mouth 2 times daily for 3 days. 6 tablet 5 06/19/19 25 Active Active Problems Problem Noted Date Diagnosed Date Hepatitis B immune 03/16/2022 Carpal tunnel syndrome 03/14/2022 Lactose intolerance 03/14/2022 Pain in wrist 03/14/2022 Hepatitis A immune 03/14/2022 Hyperlipidemia 08/02/2020 Type 2 diabetes mellitus 08/02/2020 Assessment & Plan (04/03/2022 4:01 PM EST): Well controlled on trulicity History of cholecystectomy 07/26/2018 Vitamin D deficiency 07/26/2018 Obesity 08/19/2015 Encounters Date Type Department Care Team Description 06/16/2024 3:00 PM EST Office Visit [facility] WALK-IN [address] [address] Name, MD Darnell Dysuria (Primary Dx); Urinary frequency; Vaginal discharge; Suprapubic discomfort 05/10/2024 Telephone [facility] MEDICINE [address] [place] [address] Sussy Franco [place] recall 04/03/2024 Telephone [facility] MEDICINE [address] [place] [address] Vineet Mcrae CNM 03/16/2024 Orders Only [facility] [address] [place] [address] Vineet Mcrae CNM Cervical cancer screening (Primary Dx) from Last 3 Months Immunizations Name Administration Dates Next Due DTaP, 5 pertussis antigens 12/18/1997,03/03/1984 ,1983 HPV, Quadrivalent 08/15/2009 Hep A, Adult 05/28/2015 Hep B, Adolescent or Pediatric 07/26/1996,1995,03/01/1996 IPV 03/03/1994,12/16/1993,12/19/1987 Influenza injectable quadriv alent preservative free 02/11/2022,02/06/2021 MMR 02/25/1995,12/19/1987 Moderna Covid-19 Vaccine 12+ 09/04/2020,08/08/19 21 Pfizer Covid-19 Vaccine 12+ 03/24/2021 TD (adult), 2 Lf tetanus tox oid, preservative free, adsorbed 02/17/2021,02/25/1995,10/14/1992 Tdap 08/15/2009 Varicella 04/26/1995 Family History Medical History Relation Name Comments Colon cancer Father Prostate cancer Father Colon cancer Mother Asthma Son Harish Autism Son Harish Intellectual Disability Son Harish Relation Name Status Comments Father Alive Mother Son Harish Social History Tobacco Use Types Packs/Day Years Used Date Smoking Tobacco: Never Passive Smoke Exposure: Never Smokeless Tobacco: Never Tobacco Cessation:Counseling Given: Not Answered Alcohol Use Standard Drinks/Week Comments Not Currently 0 (1 standard drink = 0.6 oz pur e alcohol) occasional Depression Answer Date Recorded Patient Health Questionnaire-9 Score 9 07/19/2023 Patient Health Questionnaire-9 Score 9 07/19/2023 Last PHQ-9: Questionnaire Data Not on file 0 07/19/2023 Housing Stability Answer Date Recorded What is your housing situation today? I have taryn sing 07/19/[address] you li [...] file Not on file Not on file Last Filed Vital Signs Vital Sign Reading [...] oz) 06/16/2024 2:59 P M EST Height 154.9 cm (5' 1 ) 03/02/2024 10:24 AM EST Body Mass Index 32.01 03/02/2024 10:24 AM EST Plan of Treatment Upcoming Encounters Date Type Department Care Team (Late st Contact Info) Description 07/05/2024 2:00 PM EDT Office Visit [facility] [address] [facility] [place] [address] Anupama Black MD [address] [facility] [place] [address] Health Maintenance Due Date Last Done Comments Diabetes: Foot Exam 08/21/1993 Alcohol/Substance Use Screening 1995 Pneumococcal Vaccine: Pediatrics (0 to 5 Years) and At-Risk Patients (6 to 49) Years) (1 of 2 - PCV) 08/21/2002 HPV Vaccines (2 - 3-dose series) 09/12/2009 08/15/2009 COVID-19 Vaccine ( season) 2023 08/18/2022, 03/24/2021, 09/04/2020, Additional history exists Influenza Vaccine (#1) 2023 02/11/2022, 2020 Depression Monitoring (PHQ-9) 01/19/2024 07/19/2023, 07/19/2023 Diabetes: Hemoglobin A1C 04/15/2024 024, 07/19/2023, 03/12/2023, Additional history exists Depression Screening 07/18/2024 07/19/2023, 07/19/19 24 SDOH Screening 07/18/2024 07/19/2023 Diabetes: Urine Protein Screening 08/19/2024 08/20/2023 Lipid Panel 08/23/2024 08/24/2023, 04/27, 03/11/2021, Additional history exists Eye Exam 02/04/2025 02/04/2023 Cervical Cancer Screening 03/02/2025 Family Planning (PISQ) 03/02/2025 03/02/2024 HPV/Cotest 03/02/2025 02/06/2021 Pap Smear 03/02/2025 03/02/2024, 01/24, 02/06/2021 Tobacco Screening 03/02/2025 03/02/2024 Mammogram 04/12/2025 04/12/2024 DTaP/Tdap/Td Vaccines (8 - Td or Tdap) 02/17/2031 02/17/2021, 08/15/2009, 12/18/1997, Additional history exists Zoster Vaccines (1 of 2) 08/21/2033 RSV Patients and Patients Aged 60 years or older (1 - 1-dose 75+ series) 08/21/2058 IPV Vaccines Completed 03/03/1994, 11/25, 12/19/1987 Hepatitis B Vaccines Completed 07/26/1996, 04/11/1996, 03/01/1996 Hepatitis A Vaccines Aged Out 05/28/2015 No long er eligible based on patient's age to complete this topic HIV Screening Completed 08/01/2020 Hepatitis C Screening Completed 08/01/2020 HIB Vaccines Aged Out No longer eligi ble based on patient's age to complete this topic Meningococcal Vaccine Aged Out No joshua ronak eligible based on patient's age to complete this topic RSV under 20 months Aged Out No longe r eligible based on patient's age to complete this topic Rotavirus Vaccines Aged Out No longer eligible based on patient's age to complete this topic Procedures Procedure Name Priority Date/Time Associated Diagnosis Comments BI MAMMOGRAM SCREENING TOMOSYNTHESIS BILATERAL Routine 04/12/2024 12:10 PM EST Breast cancer screening by mammogram PAP SMEAR Routine 03/02/2024 12:00 AM EST Cervical cancer screening POCT GLYCATED HEMOGLOBIN, TOTAL Routine 10/15/2023 11:47 AM EDT Type 2 diabetes mellitus with other specified complication, unspecified whether buttermaker insulin use (CMS/HCC) LIPID PANEL, STANDARD Routine 08/24/2023 12:35 PM EDT Type 2 diabetes mellitus with other specified complication, unspecified whether buttermaker insulin use (CMS/HCC) ALBUMIN, RANDOM URINE W/CREATININE Routine 08/20/2023 12:28 PM EDT Type 2 diabetes mellitus with other specified complication, unspecified whether buttermaker insulin use (CMS/HCC) HPV MRNA E6/E7 Routine 02/06/2021 9:50 AM EDT ZZZ HISTORICAL HEPATITIS C AB W/REFL TO HCV RNA, QN, PCR Routine 08/01/2020 11:10 AM EDT HIV 1/2 ANTIGEN/ANTIBODY, FOURTH GENERATION W/RFL Routine 08/01/2020 11:10 AM EDT from Last 3 Months or Most Recently Relevant to Health Maintenance Results * BI Mammogram Screening Tomosynthesis Bilateral (04/12/2024 12:10 PM EST) Anatomical Region Laterality Modality Breast Bilateral Mammography 04/12/2024 12:1 0 PM EST Narrative 04/24/2024 2:20 PM EST ? [facility] [place] ? [address] ?[place] [id number] ? Mammography Report ? Signed ? Patient: Iraida Basilio ?MR#: [id number] ?? [id number] ? : 1985 ?Acct:[id number] ? Age/Sex: 38 / F ?ADM Date: 04/12/24 ? Loc: HO.MAMMO ? Attending Dr: Vineet Mcrae CNM ? Ordering Physician: VINEET MCRAE CNM ?Results: 2 ?? Benign Findings ? Date of Service: 04/12/24 ?Follow Up: 1 Year From Orig ?? inal Mammogram ? Procedure(s): MM tomosynthesis screening BI ?? Accession Number(s): [id number] ? cc: Felipa Romero DITCHING MACHINE OPERATOR; VINEET MCRAE CNM ? EXAMINATION: ?? MM SCREENING DIGITAL BREAST TOMOSYNTHESIS, BILATERAL ? CLINICAL INFORMATION: ? Screening. Asymptomatic. ? COMPARISON: ?? Mammography: No prior imaging available for comparison. ? TECHNIQUE: ?? Digital breast mammography with tomosynthesis is performed in both the ?? craniocaudal and mediolateral oblique views along with computer-aided ?? detection (CAD). ? FINDINGS: ?? The breasts are heterogeneously dense, which may obscure small masses ?? (ACR BI-RADS breast composition Category c). ?? Bilateral reduction mammoplasty. ?? There are no significant masses, abnormal calcifications, or other ?? abnormalities. ? MM/MM tomosynthesis screening BI ?? IMPRESSION: ?? No mammographic evidence of malignancy. ? ASSESSMENT: ? BI-RADS BI-RADS 2 - Benign Findings ? RECOMMENDATION: ?? Routine annual mammography screening. ? 1 year F/U ? This examination should not preclude the clinical evaluation of a ?? suspicious palpable abnormality. ? This patient's information was entered into a reminder system with a ?? target due date for their next mammogram. ? Electronically signed by: ??Casandra Barrientos DO ??04/24/2024 02:17 PM EST ?? RP ? Dictated By: ?Casandra Barrientos DO ? Signed By: ?<Electronically signed by Casandra Barrientos DO in OV> ? 04/24/24 1417 ? DD/ 1210 ? TD/TT: 04/12/24 1222 ? Gas Operations Analyst: ? Procedure Note Abbie, Image - 04/24/2024 [facility] [address] [place] [address] [place] [address] Mammography Report Signed Patient: Iraida Basilio [facility]#: [id number] : 1985Acct:[id number] Age/Sex: 38 / FADM Date: 04/12/24 Loc: HO.MAMMO Attending Dr: Vineet Mcrae CNM Ordering Physician: VINEET MCRAEesults: 2 Benign Findings Date of Service: 04/12/24Follow Up: 1 Year From Orig inal Mammogram Procedure(s): MM tomosynthesis screening BI Accession Number(s): [id number] cc: Felipa Romero DITCHING MACHINE OPERATOR; VINEET MCRAE CNM EXAMINATION: MM SCREENING DIGITAL BREAST TOMOSYNTHESIS, BILATERAL CLINICAL INFORMATION: Screening. Asymptomatic. COMPARISON: Mammography: No prior imaging available for comparison. TECHNIQUE: Digital breast mammography with tomosynthesis is performed in both the craniocaudal and mediolateral oblique views along with computer-aided detection (CAD). FINDINGS: The breasts are heterogeneously dense, which may obscure small masses (ACR BI-RADS breast composition Category c). Bilateral reduction mammoplasty. There are no significant masses, abnormal calcifications, or other abnormalities. MM/MM tomosynthesis screening BI IMPRESSION: No mammographic evidence of malignancy. ASSESSMENT: BI-RADS BI-RADS 2 - Benign Findings RECOMMENDATION: Routine annual mammography screening. 1 year F/U This examination should not preclude the clinical evaluation of a suspicious palpable abnormality. This patient's information was entered into a reminder system with a target due date for their next mammogram. Electronically signed by: Casandra Barrientos DO 04/24/2024 02:17 PM EST Dictated By: Casandra Barrientos DO Signed By: <Electronically signed by Casandra Barrientos DO in OV> 04/24/24 1417 DD/ 1210 TD/TT: 04/12/24 1222 Gas Operations Analyst: Vineet Mcrae CNM IM BI PROCEDURES Final R esult * Pap Smear (03/02/2024 12:00 AM EST) Swab Cervix uteri structure / Unknown 03/02/2024 03/03/2024 10:20 AM EST [facility] - 03/31/2024 11:42 AM EST ----- ------- Name: Basilio,Iraida M ?Age/Sex: 38/F ? : 1985 Unit#: [id number] ?? Attend Dr: ?Re03/02/24 ?Status: PRE REF ? Location: HO.LNP ?Disch: ? ----- ------- SPEC : [id number] ?RECD: 03/03/24-0 ? STATUS: ??SOUT ? REQ NUM: [id number] ? ISADORA: 03/02/24-0000 ? SUBM DR: VINEET MCRAE CNM ? ENTERED: ??03/03/24-1024 ?SP TYPE: Pap Smr ?OTHR : ? ORDERED: ??Pap Smear ? THIS IS A CORRECTED REPORT ??03/31/24-1135 ?This is a corrected report. ?Any previous versions are stored internally and are available if necessary. ? Interpretation ?? General Category: ?? Epithelial cell abnormality. ?? Adequacy: ?Endocervical component present. ?? Interpretation: ?Atypical squamous cells of undetermined significance. ? HPV High Risk: ??Positive ? HPV Genotyping 16: ??Negative ?? HPV Genotyping 18: ??Negative ? Note: ?? Report corrected to issue review diagnosis (changed from negative to ASCUS) and add HPV ?? results. ?? Correction communicated to Vineet Mcrae CNM by secure text be Dr. Blood on ?? 03/31/2024 at 11:34 am. ?Clinical Information LMP: Unknown date Previous PAP test: 2020, WNL ? Material Received ?? ThinPrep-Cervical ----- ------- Signed (signature on file) Katherine Conesus 03/31/24 1142 ? ----- ------- ? END OF REPORT ? Vineet Mcrae [facility] CYTOLOGY ORDERABLES F inal Result [facility] [address] [place] [phone] * (ABNORMAL) POCT HGB A1C (10/15/2023 11:47 AM EDT) Hemoglobin A1C 6.9(A) 4.0 - 6.0 % QC Media Lot # [id number] Lot# Expiration Date Blood 10/15/2023 11:4 7 AM EDT Felipa Romero NATIONAL SECRETARY POINT OF CARE TEST ENTER/EDIT O RDERABLES Final Result * (ABNORMAL) Lipid Panel, Standard (08/24/2023 12:35 PM EDT) Triglycerides 98 <150 mg/dL [facility] Comment:Desirable Triglyceri de: less than 150 mg/dLBorderline High Triglyceride 150-199 mg/dLHigh Triglyceride: 200-499 mg/dLVery High Triglyceride: greater than or equal to 5OO mg/dL Cholesterol 198 <200 mg/dL [facility] Comment:Desirable Cholestero l: less than 200 mg/dLBorderline High Cholesterol: 200-239 mg/dLHigh Cholesterol: greater than 239 mg/dL LDL Cholesterol Calculated 140(H) <100 mg/dL [facility] Comment:Desirable LDL: less than 100 mg/dLNear Optimal/Above Optimal LDL: 110- 129 mg/dLBorderline High LDL: 130-159 mg/dLHigh LDL: 160-189 mg/dLVery High LDL: greater than or equal to 190 mg/dL HDL Cholesterol 39(L) >40 mg/dL [facility] Comment:Desirable HDL: great er than 40 mg/dL Note: This HDL assay may give artificially low results in patients with liver disease. Blood Venous blood specimen / Unknown 08/24/2023 12:35 PM EDT 08/24/2023 12:35 PM EDT [facility] LAB BLOOD ORDERABLES Final Resu lt Performing Organization Address [facility]/ZIP Co de Phone Number [facility] [address] [place], [place] [phone] * Albumin, Random Urine W/Creatinine (08/20/2023 12:28 PM EDT) Creatinine, Urine 95.78 mg/dL [facility] Microalbumin Urine 11.0 mg/L [facility] Microalbum Creatinine Ratio Ur 11.4 <30 ug/mg cr [facility] Comment:Albumin/Creatinine R atio Reference Ranges: Normal: < 30 ug/mg creatinine Microalbuminuria: 30 - 300 ug/mg creatinineClinical Albuminuria: > 300 ug/mg creatinine Urine (Urine, Random) 08/20/2023 12:28 PM EDT 08/20/2023 12:30 PM EDT [facility] LAB URINE ORDERABLES Final Resu lt Performing Organization Address [facility]/ZIP Co de Phone Number [facility] [address] [place] [address] [phone] * HPV mRNA E6/E7 (02/06/2021 9:50 AM EDT) HPV nRNA E6/E7 Not Detected Not Detected [facility] Comment: Methodology: Powder Hand-Mediated Amplification This assay detects E6/E7 viral messenger RNA (mRNA) from 14 high-risk HPV types (16,18,31,33,35,39,45,51,52,56,58,59,66,68). ? The analytical performance characteristics of this assay have been determined by [employer]. The modifications have not been cleared or approved by the FDA. This assay has been validated pursuant to the CLIA regulations and is used for clinical purposes. ?? For additional information, please refer to http://[employer]/faq/PMB973a5 (This link if provided for information/ educational purposes only.) 02/06/2021 9:50 AM EDT Vineet Mcrae [facility] LAB BLOOD ORDERABLES Keli l Result Performing Organization Address [facility] Phone Number [facility] [address] * HEPATITIS C AB W/REFL TO HCV RNA, QN, PCR (08/01/2020 11:10 AM EDT) HEPATITIS C ANTIBODY NON-REACT AMAURI NON-REACT AMAURI [facility] INDEX 0.01 <1.00 [facility] Comment: ?? HCV antibody was non-reactive. There is no laboratory ?? evidence of HCV infection. ?? In most cases, no further action is required. However, if recent HCV exposure is suspected, a test for HCV RNA (test code 34566) is suggested. ?? For additional information please refer to http://[employer]/faq/BYN45a8 (This link is being provided for informational/ educational purposes only.) ?? 08/01/2020 11:1 0 AM EDT Kelseynaya Alamo NATIONAL SECRETARY HISTORICAL/NON ORDERABLE LABS Final Result Performing Organization Address [facility] Phone Number [facility] [address] * HIV 1/2 ANTIGEN/ANTIBODY,FOURTH GENERATION W/RFL (08/01/2020 11:10 AM EDT) HIV-1/2 ANTIGEN AND ANTIBODIES, 4TH GENERATION W/ REFLEX NON-REACT AMAURI NON-REACT AMAURI [facility] Comment: HIV-1 antigen and HIV-1/HIV-2 antibodies were not detected. There is no laboratory evidence of HIV infection. ?? PLEASE NOTE: This information has been disclosed to you from records whose confidentiality may be protected by state law. ??If your state requires such protection, then the state law prohibits you from making any further disclosure of the information without the specific written consent of the person to whom it pertains, or as otherwise permitted by law. A general authorization for the release of medical or other information is NOT sufficient for this purpose. ? For additional information please refer to http://education.[employer]/faq/YLK123 (This link is being provided for informational/ educational purposes only.) ? The performance of this assay has not been clinically validated in patients less than 2 years old. ?? 08/01/2020 11:1 0 AM EDT Kelsey Alamo [facility] LAB BLOOD ORDERABLES Final Res ult [facility] [address] from Last 3 Months or Most Recently Relevant to Health Maintenance Insurance [facility] C3 Care Teams Spout Liner Relationship Specialty Start Date End Date Anupama Black MD [address] [place] [address] [place] [id number] PCP - General Family Medicine 12/28/23"
--- OUTSIDE RECORDS SUMMARY | 2024-06-16 17:33 | XMS_ITS | Encounter Summary ---
Author Organization [employer] Address [address] [facility] [address] [place] [address] Care Team Providers Care Pharmacy Service Associate Name Role Phone Felipa Romero Primary Care Provider [phone] Anupama Black MD Primary Care Provider [phone] Encounter Details Date Type Department Care Team ([facility] st Contact Info) Description 04/03/2022 Telephone [facility] MEDICINE [address] [place] [address] Felipa Romero FNP [address] [place] [address] Social History Tobacco Use Types Packs/Day Years Used Date Smoking Tobacco: Never Smokeless Tobacco: Never Alcohol Use Standard Drinks/Week Comments Not Asked 0 (1 standard drink = 0.6 oz pur e alcohol) occasional Education Answer Date Recorded What is the highest level of school you have completed or the highest degree you have received? 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 No / Unsure 04/03/2022 2:39 PM EST documented as of this encounter Plan of Treatment Upcoming Encounters Date Type Department Care Team (Late st Contact Info) Description 07/05/2024 2:00 PM EDT Office Visit [facility] MEDICINE [address] [place], [place] [phone] Anupama Black MD [address] [place], [place] [phone] documented as of this encounter Visit Diagnoses Not on filedocumented in this encounter Care Teams Pharmacy Service Associate Relationship Specialty Start Date End Date Felipa Romero FNP [address] [place] [address] [phone] PCP - General Family Medicine 02/12/22 12/27/23 Anupama Black MD [address] [place] [address] [phone] PCP - General Family Medicine 12/28/23 documented as of this encounter
[2024-06-17 02:31] LABS: CT PCR NOT DETECTED (Not Detect.); NG PCR NOT DETECTED (Not Detect.)
[2024-06-17 12:01] LABS: Bacterial Vaginosis PCR NEGATIVE (Negative); Candida Group PCR NOT DETECTED (Not Detect); Candida glab krusei PCR NOT DETECTED (Not Detect); Trichomonas vaginalis PCR NOT DETECTED (Not Detect)
== END 2024-06-16 17:32 | disposition home or self-care (01) ==
LOC: HO.HHCLNP 17:31
PROVIDERS: Visit Provider Internal Medicine Geriatric Medicine
DX: N89.8 Other specified noninflammatory disorders of vagina (principal)
CPT/HCPCS: 81515; 87491; 87591

== ENCOUNTER 2024-06-26 13:07 | Outpatient (AMB) | payer MEDICAID, SELFPAY ==
--- NOTE | 2024-06-26 13:08 | A.OFFVIS_ITS ---
Vital Signs 06/26/24 13:18 Height 5 ft 1 in Weight 168 lb 6.931 oz BMI 31.8 BP 116/70 Blood Pressure Location Lt brachial Position Sitting Pulse 92 Pulse Source Pulse Oximeter Pulse Oximetry (%) 100 Oxygen Delivery Method Room Air Intake Visit Reasons: Gastro-esophageal reflux disease w/o esophagitis Intake Note: ESTABLISHED PATIENT for mgmt of GERD, IBS + constipation. Chief Complaint; C/O occasional, chronic diarrhea. Pt does state that her sx are greatly improved since her last visit. Pt also reports switching from citrucel powder to citrucel gummies as they are more effective for her. Pt denies any additional concerns. Accompanied by: Significant Other Allergies cinnamon Allergy (Intermediate, Verified 06/26/24 13:08) Hives peanut Allergy (Mild, Verified 06/26/24 13:08) Unknown HPI HPI Gastro-esophageal reflux disease w/o esophagitis: Details: LAST VISIT IBS (irritable bowel syndrome) Postprandial abdominal bloating Constipation Plan Continue pantoprazole daily. Avoid dietary triggers and late night snacking. Staying upright for minimum 3 hours after meals discussed with patient. Continue taking senna daily. Increase fluid intake and activity to promote better bowel motility. Follow-up in the office in 6 months, sooner on as needed basis. Will repeat colonoscopy in 1 year due to suboptimal prep. She is agreeable to this plan and verbalizes understanding of instructions. She was given the opportunity to ask questions and all questions answered. ? Thank you for allowing me to participate in her care Medications Refilled pantoprazole take one tablet half an hour before breakfast 40 mg PO DAILY 30 tabs 2RF K21.9 sennosides (Natural Senna Laxative) 17.2 mg (2 x 8.6 mg) PO BEDTIME 60 tabs 3RF constipation K59.00 TODAY'S VISIT Patient is here today for follow-up. Patient reports that she has been feeling much better since starting taking the pantoprazole. Patient states that she is eating better, drinking more water. Takes [id number] fiber supplements. Her symptoms of acid reflux are suppressed for the most part. Occasional bloating depending on what. Patient reports that she no longer is taking Senokot as he feels like he does not needed. Patient admits that sometimes she will eat food that is greasy, fast food. Reports that she will get bloated than. Patient admits to have lot of gas. Denies melena, hematochezia, unintentional weight loss or ribbon like stools. Denies dyspepsia, dysphagia or odynophagia. Patient denies any other GI concerning symptoms. COUNTS INCLUDE 234 BEDS AT THE [facility] Medical History Diabetes Surgical History H/O endoscopy H/O colonoscopy Hx laparoscopic cholecystectomy Hx of breast reduction, elective Social History Are you a primary child care leader to a significant other at home: No Do you presently have visiting nurse or other home services: No Patient Tobacco Use Status: Never used Tobacco Current occupational status: unemployed Review of Systems Const Denies weight gain and Denies weight loss ENT Reports no additional complaints, Denies dysphagia and Denies odynophagia Card Reports no additional complaints Resp Reports no additional complaints GI Denies abdominal pain, Denies belching, Denies melena, Denies bloating, Denies change in bowel habits, Denies dysphagia, Denies excessive flatus, Denies dyspepsia, Denies heartburn, Denies diarrhea, Denies loose stools, Denies nausea, Denies odynophagia and Denies vomiting Musc Reports no additional complaints Neuro Reports no additional complaints Psych Reports no additional complaints Endo Reports no additional complaints Physical Exam Vital Signs: Last Vital Signs Pulse 92 06/26/24 13:18 BP 116/70 06/26/24 13:18 Pulse Ox 100 06/26/24 13:18 Oxygen Delivery Method Room Air 06/26/24 13:18 BMI result Body Mass Index 31.8 Const General: healthy appearing and no acute distress Nutritional Appearance: obese Orientation/consciousness: patient oriented x3 Resp Effort & Inspection: normal respiratory effort, able to speak in complete sentences, no tracheal deviation and symmetric chest movement Auscultation: clear to auscultation bilaterally Cardio Rate: regular rate GI Inspection: Yes normal to inspection, No distended and Yes obesity Palpation (GI): Soft to palpation, not firm, nontender and No hepatosplenomegaly present Auscultation: normal bowel sounds General: Yes no CVA tenderness Back/Spine/Pelvis Back: no CVA tenderness Skin General skin exam: elasticity normal, turgor normal and dry skin Neuro General: patient oriented x3 Psych Appearance: grossly normal Mental Status: mental status grossly normal Assessment & Plan Assessment & Plan (1) IBS (irritable bowel syndrome): Code(s): K58.9 - Irritable bowel syndrome, unspecified Qualifiers: Irritable bowel syndrome type: with both diarrhea and constipation Qualified Code(s): K58.2 - Mixed irritable bowel syndrome (2) Postprandial abdominal bloating: Code(s): R14.0 - Abdominal distension (gaseous) (3) Constipation: Code(s): K59.00 - Constipation, unspecified Qualifiers: Constipation type: slow transit constipation Qualified Code(s): K59.01 - Slow transit constipation Plan Patient will continue taking pantoprazole in the morning. Avoid dietary triggers a late night snacking. Staying upright for minimum 3 hours after meals discussed with patient. Patient was encouraged to increase fluid intake and activity to promote better bowel motility. Take fiber with pre and probiotic daily. Follow-up in 6 months. Patient was encouraged to call our office if she will have any GI concerning symptoms. She is agreeable to this plan and verbalizes understanding of instructions. She was given the opportunity to ask questions and all questions answered. Thank you for allowing to participate in her care Medications: Refilled pantoprazole 40 mg PO QAM 90 tabs 2RF K21.9 - Gastro-esophageal reflux disease without esophagitis Discontinued sennosides (Natural Senna Laxative) Discontinued Reason: Patient no longer taking 17.2 mg (2 x 8.6 mg) PO BEDTIME 60 tabs 3RF constipation K59.00 - Constipation, unspecified Coding Level of Care Code Est Pt Level 3 (89790) Diagnoses Irritable bowel syndrome with both constipation and diarrhea K58.2 Irritable bowel syndrome type: with both diarrhea and constipation Postprandial abdominal bloating R14.0 Slow transit constipation K59.01 Constipation type: slow transit constipation Time Spent (min) 25 Comment 15 minutes spent with patient and additional 10 minutes spent reviewing her records
[2024-06-26 13:18] VITALS: BP 116/70; PULSE 92; O2SAT 100; BMI 31.8
--- OUTSIDE RECORDS SUMMARY | 2024-06-26 15:24 | XMS_ITS | Encounter Summary ---
Author Organization [employer] Address [address] [place] [address] Care Team Providers Care Tawer Name Role Phone Felipa Romero Primary Care Provider [phone] Anupama Black MD Primary Care Provider [phone] Encounter Details Date Type Department Care Team (Late st Contact Info) Description 03/14/2022 Abstract [facility] [address] [place] [id number] ProviderAndrew MD Social History Tobacco Use Types Packs/Day Years Used Date Smoking Tobacco: Never Assessed Comments Unknown Sex and Gender Information Value Date Recorded Sex Assigned at Female 02/23/2022 10:15 AM EDT Legal Sex Female 10:15 AM EDT Gender Identity Female 02/23/2022 10:15 AM EDT Sexual Orientation Straight 02/23/2022 10 :15 AM EDT documented as of this encounter Plan of Treatment Upcoming Encounters Date Type Department Care Team (Late st Contact Info) Description 07/05/2024 2:00 PM EDT Office Visit [facility] [address] [place] [address] Anupama Black MD [address] [place], [place] [phone] documented as of this encounter Visit Diagnoses Not on filedocumented in this encounter Care Teams Tawer Relationship Specialty Start Date End Date eFlipa Romero FNP [address] [place], [place] [phone] PCP - General Family Medicine 02/12/22 12/27/23 Anupama Black MD [address] [place] [phone] PCP - General Family Medicine 12/28/23 documented as of this encounter
--- OUTSIDE RECORDS SUMMARY | 2024-06-26 15:25 | XMS_ITS | Clinical Summary ---
Author Organization [facility] Address [address] [place] [address] Care Team Providers Care Department Coordinator Name Role Phone Unavailable Primary Care Provider [...]
--- OUTSIDE RECORDS SUMMARY | 2024-06-26 15:25 | XMS_ITS | Encounter Summary ---
Author Organization [employer] Address [address] [place] [address] Care Team Providers Care Drag Car Racer Name Role Phone Felipa Romero Primary Care Provider [phone] Anupama Black MD Primary Care Provider [phone] Encounter Details Date Type Department Care Team ([facility] st Contact Info) Description 04/03/2022 Telephone [facility] [address] [place] [address] Felipa Romero FNP [address] [place] [address] Social History Tobacco Use Types Packs/Day Years [...] Description 07/05/2024 2:00 PM EDT Office Visit [facility] [address] [place], [place] [phone] Anupama Black MD [address] [place], [place] [phone] documented as of this encounter Visit Diagnoses Not on filedocumented in this encounter Care Teams Drag Car Racer Relationship Specialty Start Date End Date Felipa Romero FNP [address] [place] [address] [phone] PCP - General Family Medicine 02/12/22 12/27/23 Anupama Black MD [address] [place] [address] [phone] PCP - General Family Medicine 12/28/23 documented as of this encounter
--- OUTSIDE RECORDS SUMMARY | 2024-06-26 15:25 | XMS_ITS | Clinical Summary ---
Author Organization [facility] it Address [address] [place] [address] Care Team Providers Care Obstetrics Technician Name Role Phone Unavailable Primary Care Provider [...]
--- OUTSIDE RECORDS SUMMARY | 2024-06-26 15:25 | XMS_ITS | Clinical Summary ---
Author Organization [employer] Address [address] [facility] [address] [place] [address] Care Team Providers Care Channel Installer Name Role Phone Anupama Black MD Primary Care Provider [phone] Allergies Active Allergy Reactions Criticality Noted Date [...] mellitus with other specified complication, unspecified whether detention insulin use ([facility]) 1 each by Other route 3 [...] days. 6 tablet 5 06/19/19 25 Active Problems Problem Noted Date Diagnosed Date [...] Office Visit [facility] [address] [address] Name, MD Darnell Dysuria (Primary Dx); Urinary frequency; Vaginal discharge; Suprapubic discomfort 05/10/2024 Telephone [facility] [address] [place] [address] S[place], [place] recall 04/03/2024 Telephone [facility] [address] [place] [address] Vineet Mcrae CNM from Last 3 Months Immunizations Name Administration [...] Office Visit [facility] [address] [place] [address] Anupama Black MD [address] [place] [address] Health Maintenance Due Date Last Done Comments [...] Procedure Name Priority Date/Time Associated Diagnosis Comments CHLAMYDIA/N. GONORRHOEAE RNA, TMA, UROGENITAL Routine 06/16/2024 3:24 PM EST Vaginal discharge BACTERIAL VAGINOSIS PANEL Routine 06/16/2024 3:24 PM EST Vaginal discharge BI MAMMOGRAM SCREENING TOMOSYNTHESIS BILATERAL Routine 04/12/2024 12:10 PM EST Breast cancer screening by mammogram PAP SMEAR Routine 03/02/2024 12:00 AM EST Cervical cancer screening POCT GLYCATED HEMOGLOBIN, TOTAL Routine 10/15/2023 11:47 AM EDT Type 2 diabetes mellitus with other specified complication, unspecified whether detention insulin use (CMS/HCC) LIPID PANEL, STANDARD Routine 08/24/2023 12:35 PM EDT Type 2 diabetes mellitus with other specified complication, unspecified whether detention insulin use (CMS/HCC) ALBUMIN, RANDOM URINE W/CREATININE Routine 08/20/2023 12:28 PM EDT Type 2 diabetes mellitus with other specified complication, unspecified whether roasterman insulin use (CMS/HCC) HPV MRNA E6/E7 Routine 02/06/2021 9:50 AM EDT ZZZ HISTORICAL HEPATITIS C AB W/REFL TO HCV RNA, QN, PCR Routine 08/01/2020 11:10 AM EDT HIV 1/2 ANTIGEN/ANTIBODY, FOURTH GENERATION W/RFL Routine 08/01/2020 11:10 AM EDT from Last 3 Months or Most Recently Relevant to Health Maintenance Results * Bacterial Vaginosis (06/16/2024 3:24 PM EST) TRICHOMONAS VAGINALIS DETECTION BY PCR NOT DETECTED Not Detect [facility] BACTERIAL VAGINOSIS DETECTION BY PCR NEGATIVE Negative [facility] Comment:The BV organism targ ets of the Xpert Xpress MVP test can becommensal in women; Xpert Xpress MVP positive results forbacterial vaginosis should be considered in conjunction withother clinical and patient information to determine thedisease status. Organisms that are not detected by the XpertXpress MVP test have also been reported to be associatedwith BV and aerobic vaginitis.The Xpert Xpress MVP test performance has not been evaluatedin patients under the age of 14. KATHERYN GROUP DETECTION BY PCR NOT DETECTED Not Detect [facility] Katheryn glab krusei PCR NOT DETECTED Not Detect [facility] Swab Vaginal structure / Unknown 06/16/2024 3:24 PM EST 06/16/2024 5:32 PM EST us Darnell Name LAB MICROBIOLOGY - GENERAL ORDER CURTIS Final Result [facility] [address] [place] [address] [phone] * Chlamydia/N. Gonorrhoeae RNA, TMA, Urogenitial (06/16/2024 3:24 PM EST) CT PCR NOT DETECTED Not Detect. [facility] Comment:A not detected test result does not exclude the possibilityof infection because test results can be affected byimproper specimen collection, concurrent antibiotic therapy,or the number of organisms in the specimen which may bebelow the sensitivity of the test. As with many diagnostictests, results from the Xpert CT/NG assay should beinterpreted in conjunction with other laboratory andclinical data available to the clinician.Xpert CT/NG performance has not been evaluated in patientsless than 14 years of age. The assay should not be used forthe evaluationof suspected sexual abuse or for other medico-legalindications. Additional testing is recommended in anycircumstance when false positive or false negative resultscould lead to adverse medical, social or psychologicalconsequences. NG PCR NOT DETECTED Not Detect. [facility] Comment:A not detected test result does not exclude the possibilityof infection because test results can be affected byimproper specimen collection, concurrent antibiotic therapy,or the number of organisms in the specimen which may bebelow the sensitivity of the test. As with many diagnostictests, results from the Xpert CT/NG assay should beinterpreted in conjunction with other laboratory andclinical data available to the clinician.Xpert CT/NG performance has not been evaluated in patientsless than 14 years of age. The assay should not be used forthe evaluationof suspected sexual abuse or for other medico-legalindications. Additional testing is recommended in anycircumstance when false positive or false negative resultscould lead to adverse medical, social or psychologicalconsequences. Swab (Vaginal Swab) 06/16/2024 3:24 PM EST 06/16/2024 5:32 PM EST Narrative [facility] - 06/17/2024 2:31 AM EST Vaginal us Darnell Blake MD LAB MICROBIOLOGY - GENERAL ORDER CURTIS Final Result [facility] [address] [place] [phone] * BI Mammogram Screening Tomosynthesis Bilateral (04/12/2024 12:10 PM EST) Anatomical Region Laterality Modality Breast Bilateral Mammography 04/12/2024 12:1 0 PM EST Narrative 04/24/2024 2:20 PM EST ? [facility] ? [address] ?[place] [address] ? Mammography Report ? Signed ? Patient: Basilio,Iraida M ?MR#: [id number] ?? [id number] ? : 1985 ?Acct:[id number] ? Age/Sex: 38 / F ?ADM Date: 04/12/24 ? Loc: HO.MAMMO ? Attending Dr: Vineet Mcrae CNM ? Ordering Physician: VINEET MCRAE CNRashida ?Results: 2 ?? Benign Findings ? Date of Service: 04/12/24 ?Follow Up: 1 Year From Orig ?? inal Mammogram ? Procedure(s): MM tomosynthesis screening BI ?? Accession Number(s): [id number] ? cc: Felipa Romero JET HANDLER; VINEET MCRAE CNM ? EXAMINATION: ?? MM [...] ??Casandra Barrientos DO ??04/24/2024 02:17 PM EST ? Dictated By: ?Casandra Barrientos DO ? Signed By: ?<Electronically signed by Casandra Barrientos, DO in OV> ? 04/24/24 1417 ? DD/ 1210 ? TD/TT: 04/12/24 1222 ? Digital Content Producer: ? Procedure Note Abbie, Silvia - 04/24/2024 [facility] [address] [place] [address] Mammography Report Signed Patient: Iraida Basilio [facility]#: [id number] : 1985Acct:[id number] Age/Sex: 38 / FADM Date: 04/12/24 Loc: HO.MAMMO Attending Dr: Vineet Mcrae CNM Ordering Physician: VINEET MCRAEesults: 2 Benign Findings Date of Service: 04/12/24Follow Up: 1 Year From Orig [facility] Mammogram Procedure(s): MM tomosynthesis screening BI Accession Number(s): [id number] cc: Felipa Romero JET HANDLER; VINEET MCRAE CNM EXAMINATION: MM SCREENING DIGITAL [...] Casandra Barrientos DO 04/24/2024 02:17 PM EST RP Dictated By: Casandra Barrientos DO Signed By: <Electronically signed by Casandra Barrientos DO in OV> 04/24/24 1417 DD/ 1210 TD/TT: 04/12/24 1222 Digital Content Producer: Vineet MENESES IMG BI PROCEDURES Final R esult * Pap Smear (03/02/2024 12:00 AM EST) Swab Cervix uteri structure / Unknown 03/02/2024 03/03/2024 10:20 AM EST [facility] - 03/31/2024 11:42 AM EST ----- ------- Name: Iraida Basilio ?Age/Sex: 38/F ? : 1985 Unit#: [id number] ?? Attend Dr: ?Re/07/24 ?Status: PRE REF ? Location: HO.LNP ?Disch: ? ----- ------- SPEC : [id number] ?RECD: 03/03/24 ? STATUS: ??SOUT ? REQ NUM: [id number] ? ISADORA: 03/02/24-0000 ? SUBM DR: VINEET MCRAE CNM ? ENTERED: ??03/03/24-1024 ?SP TYPE: Pap Smr ?OTHR DR: ? ORDERED: ??Pap Smear ? THIS IS A CORRECTED REPORT ??03/31/24 ?This is a corrected report. ?Any previous [...] ----- ------- Signed (signature on file) Katherine Blood 03/31/24 1142 ? ----- ------- ? END OF REPORT ? us Vineet Mcrae CNM LAB CYTOLOGY ORDERABLES F inal Result [facility] [address] [place] [address] [phone] * (ABNORMAL) POCT HGB A1C (10/15/2023 11:47 AM EDT) Hemoglobin A1C 6.9(A) 4.0 - 6.0 % QC Media Lot # [id number] Lot# Expiration Date Blood 10/15/2023 11:4 7 AM EDT [employer] [facility] POINT OF CARE TEST ENTER/EDIT O RDERABLES Final Result * (ABNORMAL) Lipid Panel, Standard (08/24/2023 12:35 PM EDT) Pathologist [facility] Triglycerides 98 <150 mg/dL [facility] Comment:Desirable Triglyceri de: less than 150 mg/dLBorderline High Triglyceride 150-199 mg/dLHigh Triglyceride: 200-499 mg/dLVery High Triglyceride: greater than or equal to 5OO mg/dL Cholesterol 198 <200 mg/dL [facility] Comment:Desirable Cholestero l: less than 200 mg/dLBorderline High Cholesterol: 200-239 mg/dLHigh Cholesterol: greater than 239 mg/dL LDL Cholesterol Calculated 140(H) <100 mg/dL [facility] Comment:Desirable LDL: less than 100 mg/dLNear Optimal/Above Optimal LDL: 110- 129 mg/dLBorderline High LDL: 130-159 mg/dLHigh LDL: 160-189 mg/dLVery High LDL: greater than or equal to 190 mg/dL HDL Cholesterol 39(L) >40 mg/dL [facility] Comment:Desirable HDL: great er than 40 mg/dL Note: This HDL assay may give artificially low results in patients with liver disease. Blood Venous blood specimen / Unknown 08/24/2023 12:35 PM EDT 08/24/2023 12:35 PM EDT [employer] [facility] LAB BLOOD ORDERABLES Final Resu lt [facility] [address] [place] [phone] * Albumin, Random Urine W/Creatinine (08/20/2023 12:28 PM EDT) Creatinine, Urine 95.78 mg/dL [facility] Microalbumin Urine 11.0 mg/L [facility] Microalbum Creatinine Ratio Ur 11.4 <30 ug/mg cr [facility] Comment:Albumin/Creatinine R atio Reference Ranges: Normal: < 30 ug/mg creatinine Microalbuminuria: 30 - 300 ug/mg creatinineClinical Albuminuria: > 300 ug/mg creatinine Urine (Urine, Random) 08/20/2023 12:28 PM EDT 08/20/2023 12:30 PM EDT Felipa Romero [facility] LAB URINE ORDERABLES Final Resu lt [facility] [address] [place] [phone] * HPV mRNA E6/E7 (02/06/2021 9:50 AM EDT) HPV nRNA E6/E7 Not Detected Not Detected [facility] Comment: Methodology: Systems Software Developer-Mediated Amplification This assay detects E6/E7 viral messenger RNA (mRNA) from 14 high-risk HPV types (16,18,31,33,35,39,45,51,52,56,58,59,66,68). ? The analytical performance characteristics of this assay have been determined by [employer]. The modifications have not been cleared or approved by the FDA. This assay has been validated pursuant to the CLIA regulations and is used for clinical purposes. ?? For additional information, please refer to http://education.EcoIntense.Kublax/faq/KKL975b0 (This link if provided for information/ educational purposes only.) 02/06/2021 9:50 AM EDT Vineet Mcrae [facility] LAB BLOOD ORDERABLES Keli l Result Performing Organization Address [facility] Co de Phone Number [facility] [address] [place] [address], * HEPATITIS C AB W/REFL TO HCV RNA, QN, PCR (08/01/2020 11:10 AM EDT) HEPATITIS C ANTIBODY NON-REACT AMAURI NON-REACT AMAURI [facility] INDEX 0.01 <1.00 [facility] Comment: ?? HCV antibody was non-reactive. There is no laboratory ?? evidence of HCV infection. ?? In most cases, no further action is required. However, if recent HCV exposure is suspected, a test for HCV RNA (test code 34068) is suggested. ?? For additional information please refer to http://F[employer] Republic.RoboteX/faq/RLQ28l9 (This link is being provided for informational/ educational purposes only.) ?? 08/01/2020 11:1 0 AM EDT Kelsey Alamo SUPERVISOR RUBBER COVERING HISTORICAL/NON ORDERABLE LABS Final Result Performing Organization Address [facility] Co de Phone Number [facility] [address] [place] [address], * HIV 1/2 ANTIGEN/ANTIBODY,FOURTH GENERATION W/RFL (08/01/2020 11:10 AM EDT) Pathologist [facility] HIV-1/2 ANTIGEN AND ANTIBODIES, 4TH GENERATION W/ REFLEX NON-REACT AMAURI NON-REACT AMAURI [facility] Comment: HIV-1 antigen and HIV-1/HIV-2 [...] ? For additional information please refer to http://[employer].RoboteX/faq/OLY867 (This link is being provided for informational/ educational purposes only.) ? The performance of this assay has not been clinically validated in patients less than 2 years old. ?? 08/01/2020 11:1 0 AM EDT us Kelsey Alamo SUPERVISOR RUBBER COVERING LAB BLOOD ORDERABLES Final Res ult [facility] [address] from Last 3 Months or Most Recently Relevant to Health Maintenance Insurance [employer] C[employer] Care Teams Channel Installer Relationship Specialty Start Date End Date Anupama Black MD [address] [place], [place] PCP - General Family Medicine 12/28/23
--- OUTSIDE RECORDS SUMMARY | 2024-06-26 15:25 | XMS_ITS | Encounter Summary ---
Author Organization [facility] [employer] Address [address] [facility] [address] [place] [address] Care Team Providers Care Hansard Reporter Name Role Phone Anpuama Blakc MD Primary Care Provider [phone] Reason for Visit * Reason Comments Difficulty Urinating Encounter Details Date Type Department Care Team ([facility] st Contact Info) Description 06/16/2024 3:00 PM EST Office Visit [facility] [address] [place], [place] [phone] Name, MD Darnell [address] [place] [phone] Dysuria (Primary Dx); Urinary frequency; Vaginal discharge; [...] Description 07/05/2024 2:00 PM EDT Office Visit [facility] [address] [place], [place] [phone] Anupama Black MD [address] [place] [phone] documented as of this encounter Procedures Procedure Name Priority Date/Time Associated Diagnosis Comments BACTERIAL VAGINOSIS PANEL Routine 06/16/2024 3:24 PM EST Vaginal discharge CHLAMYDIA/N. GONORRHOEAE RNA, TMA, UROGENITAL Routine 06/16/2024 3:24 PM EST Vaginal discharge documented in this encounter Results * Chlamydia/N. Gonorrhoeae RNA, TMA, Urogenitial (06/16/2024 3:24 PM EST) CT PCR NOT DETECTED Not Detect. [facility] Comment:A not detected test result [...] psychologicalconsequences. NG PCR NOT DETECTED Not Detect. [facility] Comment:A not detected test result [...] PM EST 06/16/2024 5:32 PM EST Narrative [facility] - 06/17/2024 2:31 AM EST Vaginal Darnell Name LAB MICROBIOLOGY - GENERAL ORDER CURTIS Final Result Performing Organization Address [facility] Co de Phone Number [facility] [address] [place] [phone] * Bacterial Vaginosis (06/16/2024 3:24 PM EST) TRICHOMONAS VAGINALIS DETECTION BY PCR NOT DETECTED Not Detect [facility] BACTERIAL VAGINOSIS DETECTION BY PCR NEGATIVE Negative [facility] Comment:The BV organism targ ets [...] DETECTION BY PCR NOT DETECTED Not Detect [facility] Katheryn glab krusei PCR NOT DETECTED Not Detect [facility] Swab Vaginal structure / Unknown 06/16/2024 3:24 PM EST 06/16/2024 5:32 PM EST Darnell Blake MD LAB MICROBIOLOGY - GENERAL ORDER CURTIS Final Result Performing Organization Address [facility] Co de Phone Number [facility] [address] [place] [phone] documented in this encounter Visit Diagnoses Diagnosis Dysuria- Primary Urinary frequency Vaginal discharge Leukorrhea, not specified as infective Suprapubic discomfort Abdominal pain, other specified site documented in this encounter Additional Health Concerns Assessment Noted Time PHQ-9 Depression Total Score: 9 07/19/19 24 11:43 AM EDT documented as of this encounter Care Teams Hansard Reporter Relationship Specialty Start Date End Date Anupama Black MD [address] [place] [phone] PCP - General Family Medicine 12/28/23 documented as of this encounter
== END 2024-06-26 13:26 | disposition home or self-care (01) ==
PROVIDERS: PCP Nurse Practitioner Family; Visit Provider Nurse Practitioner Family
DX: K58.2 Mixed irritable bowel syndrome (principal); R14.0 Abdominal distension (gaseous); K59.01 Slow transit constipation
CPT/HCPCS: 99213

== ENCOUNTER → 2024-06-26 13:07 | Outpatient (BNVA) | payer MEDICAID, SELFPAY | PROVIDERS: PCP Nurse Practitioner Family; Visit Provider Nurse Practitioner Family | DX: K58.2 Mixed irritable bowel syndrome (principal); K59.01 Slow transit constipation; R14.0 Abdominal distension (gaseous) | CPT/HCPCS: 99212 ==

== ENCOUNTER 2024-07-05 14:47 | Outpatient (REF) | payer MEDICAID, SELFPAY ==
[2024-07-05 16:57] LABS: Creatinine Urine 174.09 mg/dL; Microalbum/Creatinine Ratio Ur 5.7 ug/mg cr (<30)
--- OUTSIDE RECORDS SUMMARY | 2024-07-05 17:25 | XMS_ITS | Encounter Summary ---
Author Organization [employer] Address [address] [facility] [address] [place] [address] Care Team Providers Care Director Biology Name Role Phone Anupama Black MD Primary Care Provider [phone] Reason for Visit * Reason Comments Pre-visit Planning SDOH screening negat yessy and tobacco screening negative Encounter Details Date Type Department Care Team ([facility] st Contact Info) Description 06/28/2024 Patient Outreach [facility] [address] [place] [address] Anupama Black MD [address] [place], [place] [phone] Pre-visit Planning (SDOH screening negative and tobacco screening negative) Social History Tobacco Use Types Packs/Day Years [...] Recorded Patient Health Questionnaire-2 Score 3 07/19/2023 Internet Access Answer Date Recorded Internet Access Q1 Yes 06/28/2024 Internet Access Q2 Not on file 06/28/2024 Education Answer Date Recorded What is the [...] on file documented as of this encounter Progress Notes * Robyn Bermudez - 06/28/2024 10:30 AM EST ANGELI Carlson placed successful outbound call to patient for pre-visit planning. Patient name and confirmed. Patient confirms appt date and time, and has transportation. Biggest concern for appointment at this time is none Patient advised to bring to appointment a photo id and insurance card. Appropriate screenings completed in anticipation of appointment. documented in this encounter Plan of Treatment Not on file documented as of this encounter Visit Diagnoses Not on filedocumented in this encounter Additional Health Concerns Assessment Noted Time PHQ-9 Depression Total Score: 9 07/19/19 24 11:43 AM EDT documented as of this encounter Care Teams Director Biology Relationship Specialty Start Date End Date Anupama Black MD [address] [place] [phone] PCP - General Family Medicine 12/28/23 documented as of this encounter
--- OUTSIDE RECORDS SUMMARY | 2024-07-05 17:25 | XMS_ITS | Clinical Summary ---
Author Organization [employer] Address [address] [facility] 7[address] [place] [address] Care Team Providers Care Film Critic Name Role Phone Anupama Black MD Primary Care Provider [phone] Allergies Active Allergy Reactions Criticality Noted Date Comments Flavoring Agent (Non-Screening) Hives 09/2022 Medications Alcohol Swabs (Alcohol Prep) pads Active Lancets 28G misc Active diclofenac (Voltaren) 25 MG EC tabletIndicati ons:Right knee injury, initial encounter TAKE 1 TABLET BY MOUTH TWICE A DAY. DO NOT CRUSH, CHEW OR SPLIT. 60 tablet 11 07/02/19 24 Active diphenhydrAMIN E (BENADryl) 25 MG tablet 1-2 tab po bid prn rash/pruritus x 4d 15 tablet 11/11/19 24 Active betamethasone valerate (Valisone) 0.1 % cream Apply topically if needed in the morning and at bedtime (dryness). 45 g 2 11/11/19 24 Active glucose blood (FREESTYLE LITE) test stripIndicatio ns:Type 2 diabetes mellitus with other specified complication, unspecified whether mcc insulin use ([facility]) 1 each by Other route 3 times daily. TEST BLOOD SUGARS 3 TIMES A DAY 100 each 11 01/25/20 24 Active escitalopram (Lexapro) 20 MG tablet Take 20 mg by mouth Once per day. Active hydrOXYzine HCl (Atarax) 10 MG tablet Take 10 mg by mouth 1 (one) time. Active pantoprazole (ProtoNix) 40 MG EC tablet Take 40 mg by mouth before breakfast. Do not crush, chew, or split. Active senna-docusate sodium (Senokot-S) 8.6-50 MG tablet Take 1 tablet by mouth Once per day. Active buPROPion XL (Wellbutrin XL) 300 MG 24 hr tablet TAKE 1 TABLET BY MOUTH EVERY DAY IN THE MORNING DIRECTED 03/07/20 Active cloNIDine (Catapres) 0.1 MG tablet TAKE 1 TABLET BY MOUTH AT BEDTIME SLEEP, ANXIETY 11/27/19 Active Senna-Time 8.6 MG tablet TAKE 2 TABLETS BY MOUTH NEEDED CONSTIPATION 01/24/20 Active temazepam (Restoril) 7.5 MG capsule TAKE 1 CAPSULE BY MOUTH EVERY NIGHT AT BEDTIME NEEDED INSOMNIA 03/07/20 Active zolpidem (Ambien) 5 MG tablet take 1 tablet by mouth every night at bedtime as needed for insomnia 12/02/19 Active levocetirizine (Xyzal) 5 MG tablet TAKE 1 TABLET BY MOUTH EVERY EVENING 90 tablet 3 07/06/19 Active Dulaglutide 3 MG/0.5ML solution auto-injector Inject 3 mg under the skin 1 (one) time per week. 2 mL 3 07/06/19 Active lisinopril 2.5 MG tablet Take 1 tablet (2.5 mg) by mouth Once per day. 90 tablet 3 07/06/19 25 2025 Active hydrocortisone 2.5 % cream apply by topical route 2 times every day a thin layer to the affected area(s) for two weeks only 09/09/19 22 2024 Discontinued(T herapy completed) nabumetone (Relafen) 500 MG tablet Take 1 tablet by mouth if needed in the morning and at bedtime for headaches. WITH FOOD. TRY TO LIMIT TO 2X PER WEEK 08/22/19 21 2024 Discontinued(T herapy completed) dulaglutide (Trulicity) 1.5 MG/0.5ML solution pen-injector Inject 1.5 mg under the skin 1 (one) time per week. 4 pen 11 08/27/19 24 2024 Discontinued(R eorder (will not trigger notification to Pharmacy)) levocetirizine (Xyzal) 5 MG tablet TAKE 1 TABLET BY MOUTH EVERY EVENING 90 tablet 12/09/19 24 2024 Discontinued(R eorder (will not trigger notification to Pharmacy)) guanFACINE (Tenex) 1 MG tablet Take 1 mg by mouth at bedtime. 2024 Discontinued(T herapy completed) ulipristal (Мария) 30 mg tablet Take one tablet by mouth up to five days after sex. Do not use more than once per menstrual cycle. If repeat dose is needed in same cycle, please contact prescriber. 1 tablet 11 03/02/20 24 2024 Discontinued(T herapy completed) sulfamethoxazo le-trimethopri m (Bactrim DS) 800-160 MG tablet Take 1 tablet by mouth 2 times daily for 3 days. 6 tablet 06/16/19 25 2024 escitalopram (Lexapro) 5 MG tablet TAKE 1 TABLET BY MOUTH EVERY DAY WITH 10MG TABLET 09/30/19 24 2024 Discontinued(I neffective) Active Problems Problem Noted Date Diagnosed Date Essential hypertension 07/05/2024 Assessment & Plan (07/05/2024 2:46 PM EDT): Diastolic not at goal Start Lisinopril 2.5mg Overweight 07/05/2024 Assessment & Plan (07/05/2024 2:47 PM EDT): Continue Trulicity monthly I could not find any evidence on this dosing, but pt states she is able to tolerate the side effects when she does this Hepatitis B immune 03/16/2022 Carpal tunnel syndrome 03/14/2022 Lactose intolerance 03/14/2022 Pain in wrist 03/14/2022 Hepatitis A immune 03/14/2022 Hyperlipidemia 08/02/2020 Type 2 diabetes mellitus wit h hyperosmolarity without coma, without long-term current use of insulin 08/02/2020 Assessment & Plan (07/05/2024 2:46 PM EDT): Current A1c: 7.4 Increase Trulicity to 3mg monthly BMP: Microalbumin: Foot Exam: Complete at follow up Eye Exam: Discuss at follow up Lipid panel: ASCVD: Calculate pending updated labs Statin: < 45 ASA: < 45 KAITLYNN/ARB: Yes, started 2.5mg Lisinopril Encouraged regular aerobic exercise for improved glycemic control Encouraged daily foot checks Encouraged lean protein snacks and to avoid foods high in sugar and simple carbohydrates Treatment Goals: A1c goal: <7% FBG goal: <130 2 hour post prandial goal: <180 Assessment & Plan (04/03/2022 4:01 PM EST): Well controlled on trulicity History of cholecystectomy 07/26/2018 Vitamin D deficiency 07/26/2018 Resolved Problems Problem Noted Date Diagnosed Date Resolved Date Obesity 08/19/2015 07/05/2024 Encounters Date Type Department Care Team Description 07/05/2024 2:00 PM EDT Office Visit [facility] [address] [place] [phone] Anupama Black MD Type 2 diabetes mellitus with other specified complication, unspecified whether mcc insulin use ([facility]) (Primary Dx); Dietary counseling; Exercise counseling; Overweight; Type 2 diabetes mellitus with hyperosmolarity without coma, without long-term current use of insulin ([facility]); Essential hypertension; Acute pain of right shoulder; Encounter for immunization 07/05/2024 Travel 06/28/2024 Patient Outreach [facility] [address] [place] [phone] Anupama Black MD Pre-visit Planning (SDOH screening negative and tobacco screening negative) 06/16/2024 3:00 PM EST Office Visit [facility] [address] [place] [phone] Darnell Blake MD Dysuria (Primary Dx); Urinary frequency; Vaginal discharge; Suprapubic discomfort 05/10/2024 Telephone [facility] [address] [place] [phone] Sussy Franco MA recall from Last 3 Months Immunizations Name Administration Dates Next Due DTaP, 5 pertussis antigens 12/18/1997,03/03/1984 ,1983 HPV, Quadrivalent 08/15/2009 Hep A, Adult 05/28/2015 Hep B, Adolescent or Pediatric 07/26/1996,1995,03/01/1996 IPV 03/03/1994,12/16/1993,12/19/1987 Influenza injectable quadriv alent preservative free 02/11/2022,02/06/2021 MMR 02/25/1995,12/19/1987 Moderna Covid-19 Vaccine 12+ 09/04/2020,08/08/19 21 Pfizer Covid-19 Vaccine 12+ 03/24/2021 Pneumococcal Conjugate PCV 20 07/05/2024 TD (adult), 2 Lf tetanus tox oid, [...] Sign Reading Time Taken Comments Blood Pressure 130/91 07/05/2024 2:09 PM EDT Pulse 90 07/05/2024 2:09 PM EDT Temperature 36.6 ??C (97.9 ??F) 07/05/2024 2:09 PM ED T Respiratory Rate 16 07/05/2024 2:09 PM EDT Oxygen Saturation 100% 07/05/2024 2:09 PM EDT Inhaled Oxygen Concentration - - Weight 76.7 kg (169 lb) 07/05/2024 2:09 PM EDT Height 160 cm (5' 3 ) 07/05/2024 2:09 PM EDT Body Mass Index 29.94 07/05/2024 2:09 PM EDT Plan of Treatment Health Maintenance Due Date Last Done Comments Diabetes: Foot Exam 08/21/1993 Alcohol/Substance Use Screening 1995 HPV Vaccines (2 - 3-dose series) 09/12/2009 08/15/2009 COVID-19 Vaccine ( season) 2023 08/18/2022, 03/24/2021, 09/04/2020, Additional history exists Influenza Vaccine (#1) 2023 02/11/2022, 2020 Depression Monitoring (PHQ-9) 01/19/2024 07/19/2023, 07/19/2023 Depression Screening 07/18/2024 07/19/2023, 07/19/19 Lipid Panel 08/23/2024 08/24/2023, 04/27, 03/11/2021, Additional history exists Diabetes: Hemoglobin A1C 10/05/2024 025, 10/15/2023, 07/19/2023, Additional history exists Eye Exam 02/04/2025 02/04/2023 Cervical Cancer Screening 03/02/2025 Family Planning (PISQ) 03/02/2025 03/02/2024 HPV/Cotest 03/02/2025 02/06/2021 Pap Smear 03/02/2025 03/02/2024, 01/24, 02/06/2021 Mammogram 04/12/2025 04/12/2024 SDOH Screening 06/28/2025 06/28/2024 Diabetes: Urine Protein Screening 07/05/2025 07/05/2024, 08/20/2023 Tobacco Screening 07/05/2025 07/05/2024 DTaP/Tdap/Td Vaccines (8 - Td or Tdap) [...] Completed 08/01/2020 Hepatitis C Screening Completed 08/01/2020 Pneumococcal Vaccine: Pediatrics (0 to 5 Years) and At-Risk Patients (6 to 49) Years) Completed 07/05/2024 HIB Vaccines Aged Out No longer eligi [...] Procedure Name Priority Date/Time Associated Diagnosis Comments ALBUMIN, RANDOM URINE W/CREATININE Routine 07/05/2024 2:50 PM EDT Type 2 diabetes mellitus with other specified complication, unspecified whether rn long term care insulin use (CMS/HCC) POCT GLYCATED HEMOGLOBIN, TOTAL Routine 07/05/2024 2:19 PM EDT Type 2 diabetes mellitus with other specified complication, unspecified whether rn long term care insulin use (CMS/HCC) POCT GLUCOSE Routine 07/05/2024 2:19 PM EDT Type 2 diabetes mellitus with other specified complication, unspecified whether rn long term care insulin use ([facility]) CHLAMYDIA/N. GONORRHOEAE RNA, TMA, UROGENITAL Routine 06/16/2024 3:24 PM EST Vaginal discharge BACTERIAL VAGINOSIS PANEL Routine 06/16/2024 3:24 PM EST Vaginal discharge BI MAMMOGRAM SCREENING TOMOSYNTHESIS BILATERAL Routine 04/12/2024 12:10 PM EST Breast cancer screening by mammogram PAP SMEAR Routine 03/02/2024 12:00 AM EST Cervical cancer screening LIPID PANEL, STANDARD Routine 08/24/2023 12:35 PM EDT Type 2 diabetes mellitus with other specified complication, unspecified whether rn long term care insulin use ([facility]) HPV MRNA E6/E7 Routine 02/06/2021 9:50 AM EDT ZZZ HISTORICAL HEPATITIS C AB W/REFL TO HCV RNA, QN, PCR Routine 08/01/2020 11:10 AM EDT HIV 1/2 ANTIGEN/ANTIBODY, FOURTH GENERATION W/RFL Routine 08/01/2020 11:10 AM EDT from Last 3 Months or Most Recently Relevant to Health Maintenance Results * Albumin, Random Urine W/Creatinine (07/05/2024 2:50 PM EDT) Creatinine, Urine 174.09 mg/dL [facility] Microalbumin Urine 10.0 mg/L [facility] Microalbum Creatinine Ratio Ur 5.7 <30 ug/mg cr [facility] Comment:Albumin/Creatinine R atio Reference Ranges: Normal: < 30 ug/mg creatinine Microalbuminuria: 30 - 300 ug/mg creatinineClinical Albuminuria: > 300 ug/mg creatinine Urine (Urine, Random) 07/05/2024 2:50 PM EDT 07/05/2024 4:19 PM EDT Anupama Black MD LAB URINE ORDERABLES Final Res ult [facility] [address] [place] [phone] * (ABNORMAL) POCT HGB A1C (07/05/2024 2:19 PM EDT) Pathologist [facility] Hemoglobin A1C 7.4(A) 4.0 - 6.0 % QC Media Lot # [id number] Lot# Expiration Date Blood 07/05/2024 2:19 PM EDT Anupama Black MD POINT OF CARE TEST ENTER/EDIT ORDERABLES Final Result * (ABNORMAL) POCT Glucose (07/05/2024 2:19 PM EDT) Pathologist [facility] Glucose Blood, POC 230(A) 60 - 200 mg/dL QC Media Lot # [id number] Lot# Expiration Date Blood Capillary blood specimen / Unknown 07/05/2024 2:19 PM EDT Anupama Black MD POINT OF CARE TEST ENTER/EDIT ORDERABLES Final Result * Bacterial Vaginosis (06/16/2024 3:24 PM EST) TRICHOMONAS VAGINALIS DETECTION BY PCR NOT DETECTED Not Detect [facility] BACTERIAL VAGINOSIS DETECTION BY PCR NEGATIVE Negative [facility] Comment:The BV organism targ ets of [...] DETECTION BY PCR NOT DETECTED Not Detect [facility] Katheryn glab krusei PCR NOT DETECTED Not Detect [facility] Swab Vaginal structure / Unknown 06/16/2024 3:24 PM EST 06/16/2024 5:32 PM EST us Darnell Blake MD LAB MICROBIOLOGY - GENERAL ORDER CURTIS Final Result [facility] [address] [place] [address] [phone] * Chlamydia/N. Gonorrhoeae RNA, TMA, Urogenitial (06/16/2024 3:24 PM EST) CT PCR NOT DETECTED Not Detect. [facility] Comment:A not detected test result does [...] psychologicalconsequences. NG PCR NOT DETECTED Not Detect. [facility] Comment:A not detected test result does [...] PM EST 06/16/2024 5:32 PM EST Narrative [facility] - 06/17/2024 2:31 AM EST Vaginal us Darnell Blake MD LAB MICROBIOLOGY - GENERAL ORDER CURTIS Final Result Performing Organization Address City/State/[facility] Co de Phone Number [facility] [address] [place] [address] [phone] * BI Mammogram Screening Tomosynthesis Bilateral (04/12/2024 12:10 PM EST) Anatomical Region Laterality Modality Breast Bilateral Mammography 04/12/2024 12:1 0 PM EST Narrative 04/24/2024 2:20 PM EST ? [facility] ? [address] ?[place] [address] ? Mammography Report ? Signed ? Patient: Basilio,Iraida M ?MR#: [id number] ?? [id number] ? : 1985 ?Acct:[id number] ? Age/Sex: 38 / F ?ADM Date: 12/18/24 ? Loc: HO.MAMMO ? Attending Dr: Vineet Mcrae CNM ? Ordering Physician: VINEET MCRAE CNM ?Results: 2 ?? Benign Findings ? Date of Service: 04/12/24 ?Follow Up: 1 Year From Orig ?? inal Mammogram ? Procedure(s): MM tomosynthesis screening BI ?? Accession Number(s): [id number] ? cc: Felipa Romero CLIPPING MARKER; VINEET MCRAE CNM ? EXAMINATION: ?? MM [...] PM EST ?? RP ? Dictated By: ?Casandar Barrientos DO ? Signed By: ?<Electronically signed by Casandra Barrientos, DO in OV> ? 04/24/24 1417 ? DD/ 1210 ? TD/TT: 04/12/24 1222 ? Balling Machine Operator: ? Procedure Note Donotuseinterpreter, Image - 04/24/2024 [facility] [address] [place] [address] Dr. Bravo, [place] [phone] Mammography Report Signed Patient: Iraida Basilio MMR#: [id number] : 1985Acct:[id number] Age/Sex: 38 / FADM Date: 04/12/24 Loc: HO.MAMMO Attending Dr: Vineet Mcrae CNM Ordering Physician: VINEET MCRAEesults: 2 Benign Findings Date of Service: 04/12/24Follow Up: 1 Year From Orig inal Mammogram Procedure(s): MM tomosynthesis screening BI Accession Number(s): [id number] cc: Felipa Romero CLIPPING MARKER; VINEET MCRAE CNM EXAMINATION: MM SCREENING DIGITAL [...] 04/24/24 1417 DD/ 1210 TD/TT: 04/12/24 1222 Balling Machine Operator: us Vineet Mcrae [facility] IMG BI PROCEDURES Final R esult * Pap Smear (03/02/2024 12:00 AM EST) Swab Cervix uteri structure / Unknown 03/02/2024 03/03/2024 10:20 AM EST Narrative [facility] - 03/31/2024 11:42 AM EST ----- ------- Name: Iraida Basilio ?Age/Sex: 38/F ? : 1985 Unit#: [id number] ?? Attend Dr: ?Re03/02/24 ?Status: PRE REF ? Location: HO.LNP ?Disch: ? ----- ------- SPEC : [id number] ?RECD: 03/03/24-0 ? STATUS: ??SOUT ? REQ NUM: [id number] ? ISADORA: 03/02/24-0000 ? SUBM DR: VINEET [...] END OF REPORT ? us Vineet Mcrae [facility] CYTOLOGY ORDERABLES F inal Result [facility] [address] [place] [phone] * (ABNORMAL) Lipid Panel, Standard (08/24/2023 12:35 PM EDT) Triglycerides 98 <150 mg/dL [facility] Comment:Desirable Triglyceri de: less than 150 mg/dLBorderline High Triglyceride 150-199 mg/dLHigh Triglyceride: 200-499 mg/dLVery High Triglyceride: greater than or equal to 5OO mg/dL Cholesterol 198 <200 mg/dL [facility] Comment:Desirable Cholestero l: less than 200 mg/dLBorderline High Cholesterol: 200-239 mg/dLHigh Cholesterol: greater than 239 mg/dL LDL Cholesterol Calculated 140(H) <100 mg/dL [facility] Comment:Desirable LDL: less than 100 mg/dLNear Optimal/Above Optimal LDL: 110- 129 mg/dLBorderline High LDL: 130-159 mg/dLHigh LDL: 160-189 mg/dLVery High LDL: greater than or equal to 190 mg/dL HDL Cholesterol 39(L) >40 mg/dL [facility] Comment:Desirable HDL: great er than 40 mg/dL Note: This HDL assay may give artificially low results in patients with liver disease. Blood Venous blood specimen / Unknown 08/24/2023 12:35 PM EDT 08/24/2023 12:35 PM EDT Felipa Nick ASSISTANT BUSINESS MANAGER LAB BLOOD ORDERABLES Final Resu lt Performing Organization Address [facility]/ZIP Co de Phone Number [facility] [address] [place] [phone] * HPV mRNA E6/E7 (02/06/2021 9:50 AM EDT) HPV nRNA E6/E7 Not Detected Not Detected [facility] Comment: Methodology: Wall Taper Helper-Mediated Amplification This assay detects E6/E7 viral messenger RNA (mRNA) from 14 high-risk HPV types (16,18,31,33,35,39,45,51,52,56,58,59,66,68). ? The analytical performance characteristics of this assay have been determined by [employer]. The modifications have not been cleared or approved by the FDA. This assay has been validated pursuant to the CLIA regulations and is used for clinical purposes. ?? For additional information, please refer to http://education.[employer]/faq/TQB725o9 (This link if provided for information/ educational purposes only.) 02/06/2021 9:50 AM EDT Vineet MENESES LAB BLOOD ORDERABLES Keli l Result [facility] [address] * HEPATITIS C AB W/REFL TO HCV RNA, QN, PCR (08/01/2020 11:10 AM EDT) HEPATITIS C ANTIBODY NON-REACT [facility] NON-REACT [facility] INDEX 0.01 <1.00 [facility] Comment: ?? HCV antibody was non-reactive. There is no laboratory ?? evidence of HCV infection. ?? In most cases, no further action is required. However, if recent HCV exposure is suspected, a test for HCV RNA (test code 80829) is suggested. ?? For additional information please refer to http://[employer]/faq/BYK28p0 (This link is being provided for informational/ educational purposes only.) ?? 08/01/2020 11:1 0 AM EDT Kelsey GRULLONP HISTORICAL/NON ORDERABLE LABS Final Result [facility] [address] * HIV 1/2 ANTIGEN/ANTIBODY,FOURTH GENERATION W/RFL (08/01/2020 11:10 AM EDT) HIV-1/2 ANTIGEN AND ANTIBODIES, 4TH GENERATION W/ REFLEX NON-REACT [facility] NON-REACT [facility] Comment: HIV-1 antigen and HIV-1/HIV-2 [...] ? For additional information please refer to http://[employer]/faq/BFO259 (This link is being provided for informational/ educational purposes only.) ? The performance of this assay has not been clinically validated in patients less than 2 years old. ?? 08/01/2020 11:1 0 AM EDT us Kelsey Alamo ASSISTANT BUSINESS MANAGER LAB BLOOD ORDERABLES Final Res ult [facility] [address] from Last 3 Months or Most Recently Relevant to Health Maintenance Insurance [employer] C[employer] Care Teams Film Critic Relationship Specialty Start Date End Date Anupama Black MD [address] [facility] [place] PCP - General Family Medicine 12/28/23
--- OUTSIDE RECORDS SUMMARY | 2024-07-05 17:25 | XMS_ITS | Encounter Summary ---
Author Organization [employer] Address [address] [facility] [address] [place] [address] Care Team Providers Care Warehouse Worker Name Role Phone Felipa Romero Primary Care Provider [phone] Anupama Black MD Primary Care Provider [phone] Encounter Details Date Type Department Care Team ([facility] st Contact Info) Description 04/03/2022 Telephone [facility] [address] [place] [address] Felipa Romero FNP [address] [place] [address] Social History Tobacco Use Types Packs/Day Years [...] as of this encounter Plan of Treatment Not on file documented as of this encounter Visit Diagnoses Not on filedocumented in this encounter Care Teams Warehouse Worker Relationship Specialty Start Date End Date Felipa Romero FNP [address] [place] [address] PCP - General Family Medicine 02/12/22 12/27/23 Anupama Black MD [address] [place] [address] PCP - General Family Medicine 12/28/23 documented as of this encounter
--- OUTSIDE RECORDS SUMMARY | 2024-07-05 17:25 | XMS_ITS | Clinical Summary ---
Author Organization [facility] it Address [address] [place] [address] Care Team Providers Care Tobacco Packer Name Role Phone Unavailable Primary Care Provider [...]
--- OUTSIDE RECORDS SUMMARY | 2024-07-05 17:25 | XMS_ITS | Encounter Summary ---
Author Organization [employer] Address [address] [facility] 7 [place] [address] Care Team Providers Care Public Health Doctor Name Role Phone Anupama Black MD Primary Care Provider [phone] Reason for Referral * Consultation (Routine) - Closed Specialty Diagnoses / Procedures Referred By Contac t Referred To Contact Physical Therapy Diagnoses Acute pain of right shoulder Anupama Black MD [address] [place] [address] Phone: tel: fax: [facility] [address] [place] [address] Phone: tel: fax: Referral ID Status Reason Start Date Expiration Date V isits Requested Visits Authorized [id number] Closed Specialty Services Required 07/05/2024 07/05/2025 20 20 Reason for Visit * Reason Comments transfer patient Encounter Details Date Type Department Care Team (Latest Contact Info) Description 07/05/2024 2:00 PM EDT Office Visit [facility] [address] [place], [place] [phone] Anupama Black MD [address] [place], [place] [phone] Type 2 diabetes mellitus with other specified complication, unspecified whether [facility] insulin use (CMS/HCC) (Primary Dx); Dietary counseling; Exercise counseling; Overweight; Type 2 diabetes mellitus with hyperosmolarity without coma, without long-term current use of insulin (CMS/HCC); Essential hypertension; Acute pain of right shoulder; Encounter for immunization Social History Tobacco Use Types Packs/Day Years [...] your housing situation today? I have taryn swansno 07/19/[address] you li [...] Mass Index 29.94 07/05/2024 2:09 PM EDT documented in this encounter Progress Notes * Anupama Black MD - 07/05/2024 2:00 PM EDT SUBJECTIVE: Iraida Basilio is a 38 y.o. year old female who presents for chronic disease management. Denies recent illness, ER visit, or hospitalization. Acute Concerns: R shoulder pain Interim Updates: Type2 DM Takes Trulicity 1.5mg once a month No ASA No statin Right knee injury sustained 05/2022 while jumping on a trampoline. MRI from 07/21/22 with the following impression: 1. No acute meniscal or ligamentous injury. 2. Possible minimal grade 1 sprain of the medial collateral ligament. 3. 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 Small joint effusion and trace Bowling's cyst. L knee S/p ACL repair 05/2023 Constipation/IBS 12/2023 EGD and colonscopy, intestinal metaplasia and inflammation On senna and docusate Mood On Lexapro 20mg, Ambien 5mg Health Maintenance Mammo- UTD Imms- PCV 20 today Pap- UTD Patient Active Problem List Diagnosis ??? Carpal tunnel syndrome ??? History of cholecystectomy ??? Hyperlipidemia ??? Lactose intolerance ??? Pain in wrist ??? Type 2 diabetes mellitus with hyperosmolarity without coma, without long- term current use of insulin (CMS/HCC) ??? Vitamin D deficiency ??? Hepatitis A immune ??? Hepatitis B immune ??? Essential hypertension ??? Overweight Past Surgical History: Procedure Laterality Date ??? ANTERIOR CRUCIATE LIGAMENT REPAIR Left ??? BREAST SURGERY 2007 reduction ??? SECTION, CLASSIC 2015 ??? CHOLECYSTECTOMY ??? TUBAL LIGATION Unilateral only due to issues accessing other tube Family History Problem Relation Name Age of Onset ??? Colon cancer Mother 65 ??? Prostate cancer Father ??? Colon cancer Father ??? Asthma Son Harish ??? Autism Son Harish ??? Intellectual Disability Son Harish Social History Social History Narrative ??? Not on file Review of Systems Constitutional: Negative. Respiratory: Negative. Cardiovascular: Negative. Gastrointestinal: Negative. Musculoskeletal: Positive for arthralgias. Psychiatric/Behavioral: Positive for dysphoric mood. OBJECTIVE: Vitals: 07/05/24 1409 BP: (!) 130/91 BP Location: Right arm Patient Position: Sitting BP Cuff Size: Adult Pulse: 90 Resp: 16 Temp: 97.9 ??F (36.6 ??C) TempSrc: Temporal SpO2: 100% Weight: 169 lb (76.7 kg) Height: 5' 3 (1.6 m) Physical Exam Vitals and nursing note reviewed. Constitutional: Appearance: Normal appearance. HENT: Head: Normocephalic and atraumatic. Cardiovascular: Rate and Rhythm: Normal rate and regular rhythm. Pulses: Normal pulses. Heart sounds: Normal heart sounds. Pulmonary: Effort: Pulmonary effort is normal. Breath sounds: Normal breath sounds. Musculoskeletal: General: Tenderness present. Right shoulder: Tenderness present. No swelling, deformity, effusion or laceration. Decreased rangeof motion. Comments: AC joint tenderness Skin: General: Skin is warm and dry. Neurological: General: No focal deficit present. Mental Status: She is alert and oriented to person, place, and time. Psychiatric: Mood and Affect: Mood normal. Behavior: Behavior normal. ASSESSMENT/PLAN Problem List Items Addressed This Visit Type 2 diabetes mellitus with hyperosmolarity without coma, without long-term current use of insulin ([facility]) - Primary Current Assessment & Plan Current A1c: 7.4 Increase Trulicity to 3mg [...] <130 2 hour post prandial goal: <180 Essential hypertension Current Assessment & Plan Diastolic not at goal Start Lisinopril 2.5mg Overweight Current Assessment & Plan Continue Trulicity monthly I could not find any evidence on this dosing, but pt states she is able to tolerate the side effects when she does this Other Visit Diagnoses Dietary counseling whoel foods, low sugar Exercise counseling Acute pain of right shoulder Relevant Orders Referral to Physical Therapy Encounter for immunization Relevant Orders PCV-20 VACCINE 6 wks + (Completed) Follow Up: 6 months or sooner prn Allergies Allergen Reactions ??? Cinnamon Flavor [Flavoring Agent (Non-Screening)] Hives Current Outpatient Medications: ??? buPROPion XL (Wellbutrin XL) 300 MG 24 hr tablet, TAKE 1 TABLET BY MOUTH EVERY DAY IN THE MORNING DIRECTED, Disp: , Rfl: ??? cloNIDine (Catapres) 0.1 MG tablet, TAKE 1 TABLET BY MOUTH AT BEDTIME SLEEP, ANXIETY, Disp: , Rfl: ??? Senna-Time 8.6 MG tablet, TAKE 2 TABLETS BY MOUTH NEEDED CONSTIPATION, Disp: , Rfl: ??? temazepam (Restoril) 7.5 MG capsule, TAKE 1 CAPSULE BY MOUTH EVERY NIGHT AT BEDTIME NEEDED INSOMNIA, Disp: , Rfl: ??? zolpidem (Ambien) 5 MG tablet, take 1 tablet by mouth every night at bedtime as needed for insomnia, Disp: , Rfl: ??? Alcohol Swabs (Alcohol Prep) pads, , Disp: , Rfl: ??? betamethasone valerate (Valisone) 0.1 % cream, Apply topically if needed in the morning and at bedtime (dryness)., Disp: 45 g, Rfl: 2 ??? diclofenac (Voltaren) 25 MG EC tablet, TAKE 1 TABLET BY MOUTH TWICE A DAY. DO NOT CRUSH, CHEW OR SPLIT., Disp: 60 tablet, Rfl: 11 ??? diphenhydrAMINE (BENADryl) 25 MG tablet, 1-2 tab po bid prn rash/pruritus x 4d, Disp: 15 tablet, Rfl: 0 ??? Dulaglutide 3 MG/0.5ML solution auto-injector, Inject 3 mg under the skin 1 (one) time per week., Disp: 2 mL, Rfl: 3 ??? escitalopram (Lexapro) 20 MG tablet, Take 20 mg by mouth Once per day., Disp: , Rfl: ??? glucose blood (FREESTYLE LITE) test strip, 1 each by Other route 3 times daily. TEST BLOOD SUGARS 3 TIMES A DAY, Disp: 100 each, Rfl: 11 ??? hydrOXYzine HCl (Atarax) 10 MG tablet, Take 10 mg by mouth 1 (one) time., Disp: , Rfl: ??? Lancets 28G misc, , Disp: , Rfl: ??? levocetirizine (Xyzal) 5 MG tablet, TAKE 1 TABLET BY MOUTH EVERY EVENING, Disp: 90 tablet, Rfl:3 ??? lisinopril 2.5 MG tablet, Take 1 tablet (2.5 mg) by mouth Once per day., Disp: 90 tablet, Rfl: 3 ??? pantoprazole (ProtoNix) 40 MG EC tablet, Take 40 mg by mouth before breakfast. Do not crush, chew, or split., Disp: , Rfl: ??? senna-docusate sodium (Senokot-S) 8.6-50 MG tablet, Take 1 tablet by mouth Once per day., Disp:, Rfl: [place] Translation: Patient is bilingual and declines translation services documented in this encounter Miscellaneous Notes * Assessment & Plan Note - Anupama Black MD - 07/05/2024 2:47 PM EDTAssociated Problem(s): Overweight Continue Trulicity monthly I could not find any evidence on this dosing, but pt states she is able to tolerate the side effects when she does this * Assessment & Plan Note - Anupama Black MD - 07/05/2024 2:46 PM EDTAssociated Problem(s): Essential hypertension Diastolic not at goal Start Lisinopril 2.5mg * Assessment & Plan Note - Anupama Black MD - 07/05/2024 2:42 PM EDTAssociated Problem(s): Type 2 diabetes mellitus with hyperosmolarity without coma, without long-term current use of insulin (CMS/HCC) Current A1c: 7.4 Increase Trulicity to 3mg [...] <130 2 hour post prandial goal: <180 documented in this encounter Plan of Treatment Scheduled Orders Name Type Priority Associated Diagnoses Orde r Schedule Comprehensive Metabolic Panel Lab Routine Type 2 diabetes mellitus with other specified complication, unspecified whether [facility] insulin use (CMS/HCC) Expected: 07/05/2024 (Approximate), Expires: 07/05/2025 Lipid Panel, Standard Lab Routine Type 2 diabetes mellitus with other specified complication, unspecified whether [facility] insulin use (CMS/HCC) Expected: 07/05/2024 (Approximate), Expires: 07/05/2025 Scheduled Referrals Name Type Priority Associated Diagnoses Orde r Schedule Referral to Physical Therapy Outpatient Referral Routine Acute pain of right shoulder Expected: 07/05/2024 (Approximate), Expires: 07/05/2025 documented as of this encounter Procedures Procedure Name Priority Date/Time Associated Diagnosis Comments ALBUMIN, RANDOM URINE W/CREATININE Routine 07/05/2024 2:50 PM EDT Type 2 diabetes mellitus with other specified complication, unspecified whether [facility] insulin use (CMS/HCC) POCT GLYCATED HEMOGLOBIN, TOTAL Routine 07/05/2024 2:19 PM EDT Type 2 diabetes mellitus with other specified complication, unspecified whether [facility] insulin use ([facility]) POCT GLUCOSE Routine 07/05/2024 2:19 PM EDT Type 2 diabetes mellitus with other specified complication, unspecified whether [facility] insulin use ([facility]) documented in this encounter Results * Albumin, Random Urine W/Creatinine (07/05/2024 2:50 PM EDT) Creatinine, Urine 174.09 mg/dL [facility] Microalbumin Urine 10.0 mg/L [facility] Microalbum Creatinine Ratio Ur 5.7 <30 ug/mg cr [facility] Comment:Albumin/Creatinine R atio Reference Ranges: Normal: < 30 ug/mg creatinine Microalbuminuria: 30 - 300 ug/mg creatinineClinical Albuminuria: > 300 ug/mg creatinine Urine (Urine, Random) 07/05/2024 2:50 PM EDT 07/05/2024 4:19 PM EDT Anupama Black MD LAB URINE ORDERABLES Final Res ult Performing Organization Address City/State/[facility] Co de Phone Number [facility] [address] [place] [phone] * (ABNORMAL) POCT HGB A1C (07/05/2024 2:19 PM EDT) Hemoglobin A1C 7.4(A) 4.0 - 6.0 % QC Media Lot # [id number] Lot# Expiration Date Blood 07/05/2024 2:19 PM EDT Anupama Black MD POINT OF CARE TEST ENTER/EDIT ORDERABLES Final Result * (ABNORMAL) POCT Glucose (07/05/2024 2:19 PM EDT) Glucose Blood, POC 230(A) 60 - 200 mg/dL QC Media Lot # [id number] Lot# Expiration Date [id number] Blood Capillary blood specimen / Unknown 07/05/2024 2:19 PM EDT Anupama Black MD POINT OF CARE TEST ENTER/EDIT ORDERABLES Final Result documented in this encounter Visit Diagnoses Diagnosis Type 2 diabetes mellitus with other specified complication, unspecified whether [facility] insulin use ([facility])- Primary Dietary counseling Dietary surveillance and counseling Exercise counseling Overweight Essential hypertension Unspecified essential hypertension Acute pain of right shoulder Encounter for immunization documented in this encounter Additional Health Concerns Assessment Noted Time PHQ-9 Depression Total Score: 9 07/19/19 24 11:43 AM EDT documented as of this encounter Care Teams Public Health Doctor Relationship Specialty Start Date End Date Anupama Black MD [address] [place] [address] PCP - General Family Medicine 12/28/23 documented as of this encounter
--- OUTSIDE RECORDS SUMMARY | 2024-07-05 17:25 | XMS_ITS | Encounter Summary ---
Author Organization [employer] Address [address] [facility] 7 [place] [address] Care Team Providers Care Supervisor Cell Efficiency Name Role Phone Felipa Romero Primary Care Provider [phone] Anupama Black MD Primary Care Provider [phone] Encounter Details Date Type Department Care Team (Late st Contact Info) Description 03/14/2022 Abstract [facility] [address] [place], [place] [phone] ProviderAndrew MD Social History Tobacco Use Types [...] on filedocumented in this encounter Care Teams Supervisor Cell Efficiency Relationship Specialty Start Date End Date Felipa Romero FNP [address] [place], [place] [phone] PCP - General Family Medicine 02/12/22 12/27/23 Anupama Black MD [address] [place], [place] [phone] PCP - General Family Medicine 12/28/23 documented as of this encounter
--- OUTSIDE RECORDS SUMMARY | 2024-07-05 17:25 | XMS_ITS | Clinical Summary ---
Author Organization [facility] Address [address] [place] [address] Care Team Providers Care Chairlift Operator Name Role Phone Unavailable Primary Care Provider [...]
--- OUTSIDE RECORDS SUMMARY | 2024-07-05 17:25 | XMS_ITS | Encounter Summary ---
Author Organization [employer] Address [address] [facility] [address] [place] [address] Care Team Providers Care Supervisor Hospitality House Name Role Phone Anupama Black MD Primary Care Provider [phone] Encounter Details Date Type Department Care Team (Latest Contact Info) Description 07/05/2024 Travel Social History Tobacco Use Types Packs/Day Years [...] on file documented as of this encounter Plan of Treatment Not on file documented as of this encounter Visit Diagnoses Not on filedocumented in this encounter Additional Health Concerns Assessment Noted Time PHQ-9 Depression Total Score: 9 07/19/19 24 11:43 AM EDT documented as of this encounter Care Teams Supervisor Hospitality House Relationship Specialty Start Date End Date Anupama Black MD [address] [place] [address] PCP - General Family Medicine 12/28/23 documented as of this encounter
--- OUTSIDE RECORDS SUMMARY | 2024-07-05 17:25 | XMS_ITS | Encounter Summary ---
Author Organization [employer] Address [address] [facility] 7t [place] [address] Care Team Providers Care Natural Science Curator Name Role Phone Anupama Black MD Primary Care Provider [phone] Reason for Visit * Reason Comments Difficulty Urinating Encounter Details Date Type Department Care Team ([facility] st Contact Info) Description 06/16/2024 3:00 PM EST Office Visit [facility] [address] [place], [place] [phone] Name, MD Darnell [address] [place] [address] Dysuria (Primary Dx); Urinary frequency; Vaginal discharge; [...] on file documented as of this encounter Procedures Procedure Name Priority Date/Time Associated Diagnosis Comments BACTERIAL VAGINOSIS PANEL Routine 06/16/2024 3:24 PM EST Vaginal discharge CHLAMYDIA/N. GONORRHOEAE RNA, TMA, UROGENITAL Routine 06/16/2024 3:24 PM EST Vaginal discharge documented in this encounter Results * Chlamydia/N. Gonorrhoeae RNA, TMA, Urogenitial (06/16/2024 3:24 PM EST) CT PCR NOT DETECTED Not Detect. [facility] Comment:A not detected test result [...] psychologicalconsequences. NG PCR NOT DETECTED Not Detect. [facility] Comment:A not detected test result [...] PM EST 06/16/2024 5:32 PM EST Narrative [facility] - 06/17/2024 2:31 AM EST Vaginal us Darnell Blake MD LAB MICROBIOLOGY - GENERAL ORDER CURTIS Final Result [facility] [address] [place] [phone] * Bacterial Vaginosis (06/16/2024 3:24 PM EST) TRICHOMONAS VAGINALIS DETECTION BY PCR NOT DETECTED Not Detect [facility] BACTERIAL VAGINOSIS DETECTION BY PCR NEGATIVE Negative [facility] Comment:The BV organism targ ets [...] DETECTION BY PCR NOT DETECTED Not Detect [facility] Katheryn glab krusei PCR NOT DETECTED Not Detect [facility] Swab Vaginal structure / Unknown 06/16/2024 3:24 PM EST 06/16/2024 5:32 PM EST us Darnell Name MD LAB MICROBIOLOGY - GENERAL ORDER CURTIS Final Result [facility] [address] [place] [phone] documented in this encounter Visit Diagnoses Diagnosis Dysuria- Primary Urinary frequency Vaginal discharge Leukorrhea, not specified as infective Suprapubic discomfort Abdominal pain, other specified site documented in this encounter Additional Health Concerns Assessment Noted Time PHQ-9 Depression Total Score: 9 07/19/19 24 11:43 AM EDT documented as of this encounter Care Teams Natural Science Curator Relationship Specialty Start Date End Date Anupama Black MD [address] [place] [address] PCP - General Family Medicine 12/28/23 documented as of this encounter
[2024-07-05 17:28] LABS: Alanine Aminotransferase 18 U/L (0-31); Albumin Level 3.9 g/dL (3.5-5.0); Alkaline Phosphatase 52 U/L (39-117); Anion Gap 10 (12-20); Aspartate Amino Transferase 16 U/L (5-31); Bilirubin Total 0.4 mg/dL (0.0-1.0); Blood Urea Nitrogen 13 mg/dL (9-16); Calcium 8.6 mg/dL (8.4-10.2); Carbon Dioxide 26 mmol/L (22-29); Chloride 105 mmol/L (96-108); Cholesterol 182 mg/dL (<200); Estimated Glomerular Filt Rate > 60; Glucose Random 192 mg/dL (60-115); HDL Cholesterol 45 mg/dL (>40); LDL Cholesterol Calculated 110 mg/dL (<100); Potassium 3.6 mmol/L (3.3-5.1); Sodium 137 mmol/L (135-145); Total Protein 6.8 g/dL (6.5-8.0); Triglycerides 135 mg/dL (<150)
== END 2024-07-05 14:48 | disposition home or self-care (01) ==
LOC: HO.HHCL 14:47
PROVIDERS: Visit Provider General Practice
DX: E11.69 Type 2 diabetes mellitus with other specified complication (principal)
CPT/HCPCS: 36415; 80053; 80061; 82043; 82570

== ENCOUNTER 2024-09-14 13:49 | Outpatient (RCR) | payer MEDICAID, SELFPAY | END 2024-11-08 09:31 | disposition home or self-care (01) | LOC: HO.PT 13:49 | PROVIDERS: PCP General Practice; Visit Provider General Practice | DX: M25.511 Pain in right shoulder (principal) | CPT/HCPCS: 97110; 97162 ==

== ENCOUNTER 2024-12-26 14:38 | Outpatient (REF) | payer MEDICAID, SELFPAY ==
--- OUTSIDE RECORDS SUMMARY | 2024-12-26 15:52 | XMS_ITS | Clinical Summary ---
Author Organization [employer] Address 75 [facility] 7t [place] [address] Care Team Providers Care Admitting Representative Name Role Phone Anupama Black MD Primary Care Provider [phone] Allergies Active Allergy Reactions Criticality Noted Date Comments Flavoring Agent (Non-Screening) Hives 09/2022 Medications Alcohol Swabs (Alcohol Prep) pads Active Lancets 28G misc Active diclofenac (Voltaren) 25 MG EC tabletIndicatio ns:Right knee injury, initial encounter TAKE 1 TABLET BY MOUTH TWICE A DAY. DO NOT CRUSH, CHEW OR SPLIT. 60 tablet 11 4 Active diphenhydrAMINE (BENADryl) 25 MG tablet 1-2 tab po bid prn rash/pruritus x 4d 15 tablet 4 Active betamethasone valerate (Valisone) 0.1 % cream Apply topically if needed in the morning and at bedtime (dryness). 45 g 2 4 Active glucose blood (FREESTYLE LITE) test stripIndication s:Type 2 diabetes mellitus with other specified complication, unspecified whether assisted insulin use ([facility]) 1 each by Other route 3 [...] MOUTH EVERY DAY IN THE MORNING DIRECTED 4 Active cloNIDine (Catapres) 0.1 MG tablet TAKE 1 TABLET BY MOUTH AT BEDTIME SLEEP, ANXIETY 4 Active Senna-Time 8.6 MG tablet TAKE 2 TABLETS BY MOUTH NEEDED CONSTIPATION 4 Active temazepam (Restoril) 7.5 MG capsule TAKE 1 CAPSULE BY MOUTH EVERY NIGHT AT BEDTIME NEEDED INSOMNIA 4 Active zolpidem (Ambien) 5 MG tablet take 1 tablet by mouth every night at bedtime as needed for insomnia 4 Active levocetirizine (Xyzal) 5 MG tablet TAKE 1 TABLET BY MOUTH EVERY EVENING 90 tablet 3 5 Active Dulaglutide 3 MG/0.5ML solution auto-injector Inject 3 mg under the skin 1 (one) time per week. 2 mL 3 5 Active lisinopril 2.5 MG tablet Take 1 tablet (2.5 mg) by mouth Once per day. 90 tablet 3 5 07/06/19 26 Active Active Problems Problem Noted Date Diagnosed [...] Encounters Date Type Department Care Team Description 12/26/[address] [facility] [address] [place] [address] Sowmya Rivers RN Lab Orders 12/21/[address] [facility] [address] [place] [address] Jaylene Philip MA 11/30/[address] [facility] [address] [place] [address] Anupama Black MD from Last 3 Months Immunizations Immunization Administration Dates Next Due DTaP, 5 pertussis [...] 90 07/05/2024 2:09 PM EDT Temperature 36.6 C (97.9 F) 07/05/2024 2:09 PM EDT Respiratory Rate 16 07/05/2024 2:09 PM EDT Oxygen Saturation 100% 07/05/2024 2:09 PM EDT Inhaled Oxygen Concentration - - Weight 76.7 kg (169 lb) 07/05/2024 2:09 PM EDT Height 160 cm (5' 3 ) 07/05/2024 2:09 PM EDT Body Mass Index 29.94 07/05/2024 2:09 PM EDT Plan of Treatment Upcoming Encounters Date Type Department Care Team (Late st Contact Info) Description 02/28/2025 10:15 AM EST Procedure Visit [facility] [address] [place], [place] [phone] Vineet Mcrae CNM [address] [place] [address] Health Maintenance Due Date Last Done Comments Disability Screening 1985 Diabetes: Foot Exam 08/21/1993 Alcohol/Substance Use Screening 1995 HPV Vaccines (2 - 3-dose series) 09/12/2009 08/15/2009 Depression Monitoring 01/19/2024 07/19/2023, 024 Diabetes: Hemoglobin A1C 10/05/2024 025, 10/15/2023, 07/19/2023, Additional history exists COVID-19 Vaccine ( season) 2024 08/18/2022, 03/24/2021, 09/04/2020, Additional history exists Influenza Vaccine (#1) 2024 02/11/2022, 2020 Eye Exam 02/04/2025 02/04/2023 Cervical Cancer Screening 03/02/2025 Family Planning (PISQ) 03/02/2025 03/02/2024 HPV/Cotest 03/02/2025 03/02/2024, 02/06/2021 Pap Smear 03/02/2025 03/02/2024, 01/24, 02/06/2021 Mammogram 04/12/2025 04/12/2024 SDOH Screening 06/28/2025 06/28/2024 Diabetes: Urine Protein Screening 07/05/2025 07/05/2024, 08/20/2023 Lipid Panel 07/05/2025 07/05/2024, 07/27, 05/15/2022, Additional history exists Tobacco Screening 07/05/2025 07/05/2024 DTaP/Tdap/Td Vaccines (8 [...] Years) and At-Risk Patients (6 to 49) Years Completed 07/05/2024 HIB Vaccines Aged Out No longer eligi ble based on patient's age to complete this topic Meningococcal B Vaccine Aged Out No l onger eligible based on patient's age to complete [...] mellitus with other specified complication, unspecified whether long term care phlebotomist insulin use (CMS/HCC) LIPID PANEL, STANDARD Routine 07/05/2024 2:50 PM EDT Type 2 diabetes mellitus with other specified complication, unspecified whether long term care phlebotomist insulin use (CMS/HCC) POCT GLYCATED HEMOGLOBIN, TOTAL Routine 07/05/2024 2:19 PM EDT Type 2 diabetes mellitus with other specified complication, unspecified whether assisted insulin use (CMS/HCC) BI MAMMOGRAM SCREENING TOMOSYNTHESIS BILATERAL Routine 04/12/2024 12:10 PM EST Breast cancer screening by mammogram HPV MRNA E6/E7 REFLEX TO HPV 16, 18/45 Routine 03/02/2024 12:00 AM EST PAP SMEAR Routine 03/02/2024 12:00 AM EST Cervical cancer screening [facility] HISTORICAL HEPATITIS C AB W/REFL TO HCV RNA, QN, PCR Routine 08/01/2020 11:10 AM EDT HIV 1/2 ANTIGEN/ANTIBODY, FOURTH GENERATION W/RFL Routine 08/01/2020 11:10 AM EDT from Last 3 Months or Most Recently Relevant to Health Maintenance Results * Albumin, Random Urine W/Creatinine (07/05/2024 2:50 PM EDT) Creatinine, Urine 174.09 mg/dL [facility] Microalbumin Urine 10.0 mg/L [facility] Microalbum Creatinine Ratio Ur 5.7 <30 ug/mg cr [facility] Comment:Albumin/Creatinine R at Reference Ranges: Normal: < 30 ug/mg creatinine Microalbuminuria: 30 - 300 ug/mg creatinineClinical Albuminuria: > 300 ug/mg creatinine Urine (Urine, Random) 07/05/2024 2:50 PM EDT 07/05/2024 4:19 PM EDT Anupama Black MD LAB URINE ORDERABLES Final Res ult Performing Organization Address [facility] Co de Phone Number [facility] [address] [place] [address] [phone] * (ABNORMAL) Lipid Panel, Standard (07/05/2024 2:50 PM EDT) Triglycerides 135 <150 mg/dL [facility] Comment:Desirable Triglyceri de: less than 150 mg/dLBorderline High Triglyceride 150-199 mg/dLHigh Triglyceride: 200-499 mg/dLVery High Triglyceride: greater than or equal to 5OO mg/dL Cholesterol 182 <200 mg/dL [facility] Comment:Desirable Cholestero l: less than 200 mg/dLBorderline High Cholesterol: 200-239 mg/dLHigh Cholesterol: greater than 239 mg/dL LDL Cholesterol Calculated 110(H) <100 mg/dL [facility] Comment:Desirable LDL: less than 100 mg/dLNear Optimal/Above Optimal LDL: 110- 129 mg/dLBorderline High LDL: 130-159 mg/dLHigh LDL: 160-189 mg/dLVery High LDL: greater than or equal to 190 mg/dL HDL Cholesterol 45 >40 mg/dL [facility] Comment:Desirable HDL: great er than 40 mg/dL Note: This HDL assay may give artificially low results in patients with liver disease. Blood Venous blood specimen / Unknown 07/05/2024 2:50 PM EDT 07/05/2024 4:51 PM EDT Anupama Black MD LAB BLOOD ORDERABLES Final Res ult Performing Organization Address [facility]/ZIP Co de Phone Number [facility] [address] [place] [address] [phone] * (ABNORMAL) POCT HGB A1C (07/05/2024 2:19 PM EDT) Hemoglobin A1C 7.4(A) 4.0 - 6.0 % QC Media Lot # [id number] Lot# Expiration Date Blood 07/05/2024 2:19 PM EDT Anupama Black MD POINT OF CARE TEST ENTER/EDIT ORDERABLES Final Result * BI Mammogram Screening Tomosynthesis Bilateral (04/12/2024 12:10 PM EST) Anatomical Region Laterality Modality Breast Bilateral Mammography 04/12/2024 12:1 0 PM EST Narrative 04/24/2024 2:20 PM EST [facility] [address] [place] [address] Mammography Report Signed Patient: Iraida Basilio MR#: [id number] : 1985 Acct:[id number] Age/Sex: 38 / F ADM Date: 04/12/24 Loc: HO.MAMMO Attending Dr: Vineet Mcrae CNM Ordering Physician: VINEET MCRAE CNM Results: 2 Benign Findings Date of Service: 04/12/24 Follow Up: 1 Year From [facility] Mammogram Procedure(s): MM tomosynthesis screening BI Accession Number(s): [id number] cc: Felipa Romero RECIPROCATING DRILL OPERATOR; VINEET MCRAE CNM EXAMINATION: MM SCREENING [...] 04/24/24 1417 DD/ 1210 TD/TT: 04/12/24 1222 Support Assistant: Procedure Note Donotuseinterpreter, Image - 04/24/2024 [facility] [address] [place] [address] Mammography Report Signed Patient: Iraida Basilio MMR#: [id number] : 1985Acct:[id number] Age/Sex: 38 / FADM Date: 04/12/24 Loc: HO.MAMMO Attending Dr: Vineet Mcrae CNM Ordering Physician: VINEET MCRAEesults: 2 Benign Findings Date of Service: 04/12/24Follow Up: 1 Year From Orig inal Mammogram Procedure(s): MM tomosynthesis screening BI Accession Number(s): [id number] cc: Felipa Romero RECIPROCATING DRILL OPERATOR; VINEET MCRAE CNM EXAMINATION: MM SCREENING [...] 04/24/24 1417 DD/ 1210 TD/TT: 04/12/24 1222 Support Assistant: Vineet Mcrae CN IMG BI PROCEDURES Final R esult * (ABNORMAL) HPV mRNA E6/E7 w/Reflex to HPV Genotypes 16, 18/45 (03/02/2024 12:00 AM EST) us Historical Provider MD LAB CYTOLOGY ORDERABLES F inal Result [facility] [address] [place] [phone] * Pap Smear (03/02/2024 12:00 AM EST) Swab Cervix uteri structure / Unknown 03/02/2024 03/03/2024 10:20 AM EST Narrative [facility] - 03/31/2024 11:42 AM EST ----- ------- Name: BasilioIraida M Age/Sex: 38/F : 1985 Unit#: [id number] Attend Dr: Re03/02/24 Status: PRE REF Location: [facility] Disch: ----- ------- SPEC : [id number] RECD: 03/03/24 STATUS: SAMMI GONZALEZ NUM: [id number] ISADORA: 03/02/24-[address]: VINEET MCRAE CNM ENTERED: 03/03/24 SP TYPE: Pap Smr OT DR: ORDERED: Pap Smear THIS IS A CORRECTED REPORT 03/31/24 This is a corrected report. Any previous versions are stored internally and are available if necessary. Interpretation General Category: Epithelial cell abnormality. Adequacy: Endocervical component present. Interpretation: Atypical squamous cells of undetermined significance. HPV High Risk: Positive HPV Genotyping 16: Negative HPV Genotyping 18: Negative Note: Report corrected to issue review diagnosis (changed from negative to ASCUS) and add HPV results. Correction communicated to Vineet Mcrae CNM by secure text be Dr. Blood on 03/31/2024 at 11:34 am. Clinical Information LMP: Unknown date Previous PAP test: 2020, WNL Material Received ThinPrep-Cervical ----- ------- Signed (signature on file) Katherine [place] 03/31/24 1142 ----- ------- END OF REPORT Vineet Mcrae CNM LAB CYTOLOGY ORDERABLES F inal Result [facility] [address] [place] [address] [phone] * HEPATITIS C AB W/REFL TO HCV RNA, QN, PCR (08/01/2020 11:10 AM EDT) HEPATITIS C ANTIBODY NON-REACT AMAURI NON-REACT AMAURI [facility] INDEX 0.01 <1.00 [facility] Comment: HCV antibody was non-reactive. There is no laboratory evidence of HCV infection. In most cases, no further action is required. However, if recent HCV exposure is suspected, a test for HCV RNA (test code 53593) is suggested. For additional information please refer to http://[email or web address].PaperKarma/faq/[email or web address] (This link is being provided for informational/ educational purposes only.) 08/01/2020 11:1 0 AM EDT Kelsey Alamo [facility] HISTORICAL/NON ORDERABLE LABS Final Result [facility] [address] * HIV 1/2 ANTIGEN/ANTIBODY,FOURTH GENERATION W/RFL (08/01/2020 11:10 AM EDT) HIV-1/2 ANTIGEN AND ANTIBODIES, 4TH GENERATION W/ REFLEX NON-REACT AMAURI NON-REACT AMAURI [facility] Comment: HIV-1 antigen and HIV-1/HIV-2 antibodies were not detected. There is no laboratory evidence of HIV infection. PLEASE NOTE: This information has been disclosed to you from records whose confidentiality may be protected by state law. If your state requires such protection, then the state law prohibits you from making any further disclosure of the information without the specific written consent of the person to whom it pertains, or as otherwise permitted by law. A general authorization for the release of medical or other information is NOT sufficient for this purpose. For additional information please refer to http://[email or web address].PaperKarma/faq/UCV138 (This link is being provided for informational/ educational purposes only.) The performance of this assay has not been clinically validated in patients less than 2 years old. 08/01/2020 11:1 0 AM EDT us Kelsey Alamo [employer] [employer] LAB BLOOD ORDERABLES Final Res ult [facility] [address] [place] [address], from Last 3 Months or Most Recently Relevant to Health Maintenance Insurance * Guarantor: Praful Iraida Bia Account Type Relation to Patient Date of Phone Billing Address Personal/Family Self [address] [place] Care Teams Admitting Representative Relationship Specialty Start Date End Date Anupama Black MD [address] [facility] [place] PCP - General Family Medicine 12/28/23
--- OUTSIDE RECORDS SUMMARY | 2024-12-26 15:52 | XMS_ITS | Encounter Summary ---
Author Organization [employer] Address 75 [facility] 7 [place] [address] Care Team Providers Care Frame Coverer Name Role Phone Anupama Black MD Primary Care Provider [phone] Reason for Visit * Reason Onset Date Comments Lab Orders 12/26/2024 Encounter Details Date Type Department Care Team ([facility] st Contact Info) Description 12/26/2024 Telephone [facility] MEDICINE [address] [place], [place] [phone] Sowmya Rivers RN [address] [place], [place] [phone] Lab Orders Social History Tobacco Use Types Packs/Day Years [...] on file documented as of this encounter Miscellaneous Notes * Telephone Encounter - Sowmya Rivers RN - 12/26/2024 2:21 PM EDT TC received from forms dept. Requesting tspot order for adult day health program. Order placed, they will make pt. Aware documented in this encounter Plan of Treatment Upcoming Encounters Date Type Department Care Team (Late st Contact Info) Description 02/28/2025 10:15 AM EST Procedure Visit [facility] MEDICINE [address] [place] [address] Jocelyn Brito CNM [address] [place] [address] Scheduled Orders Name Type Priority Associated Diagnoses Orde r Schedule T-SPOT .TB Lab Routine Screening examination for pulmonary tuberculosis Expected: 12/26/2024 (Approximate), Expires: 12/26/2025 documented as of this encounter Visit Diagnoses Diagnosis Screening examination for pulmonary tuberculosis documented in this encounter Additional Health Concerns Assessment Noted Time PHQ-9 Depression Total Score: 9 07/19/19 24 11:43 AM EDT documented as of this encounter Care Teams Frame Coverer Relationship Specialty Start Date End Date Anupama Black MD [address] [place] [address] PCP - General Family Medicine 12/28/23 documented as of this encounter
--- OUTSIDE RECORDS SUMMARY | 2024-12-26 15:52 | XMS_ITS | Encounter Summary ---
Author Organization [employer] Address [address] [facility] [address] [place] [address] Care Team Providers Care Rectification Printer Name Role Phone Anupama Black MD Primary Care Provider [phone] Encounter Details Date Type Department Care Team ([facility] st Contact Info) Description 12/21/2024 Telephone [facility] [address] [place], [place] [phone] Jaylene Philip MA Social History Tobacco Use Types Packs/Day Years [...] encounter Miscellaneous Notes * Telephone Encounter - Jaylene Philip MA - 12/21/2024 2:05 PM EDT Telephone call to patient to schedule the following recall: Visit type: PAP Appointment notes: PAP Patient agree to appointment on feb 28 at 10:15 AM with Alisha. documented in this encounter Plan of Treatment Upcoming Encounters Date Type Department Care Team (Late st Contact Info) Description 02/28/2025 10:15 AM EST Procedure Visit [facility] [address] [place] [address] Jocelyn Brito CNM [address] [place] [address] documented as of this encounter Visit Diagnoses Not on filedocumented in this encounter Additional Health Concerns Assessment Noted Time PHQ-9 Depression Total Score: 9 07/19/19 24 11:43 AM EDT documented as of this encounter Care Teams Rectification Printer Relationship Specialty Start Date End Date Anupama Black MD [address] [place] [address] PCP - General Family Medicine 12/28/23 documented as of this encounter
--- OUTSIDE RECORDS SUMMARY | 2024-12-26 15:52 | XMS_ITS | Encounter Summary ---
Author Organization [employer] Address [address] [facility] 7t [place] [address] Care Team Providers Care It Solutions Sales Consultant Name Role Phone Anupama Black MD Primary Care Provider [phone] Encounter Details Date Type Department Care Team ([facility] st Contact Info) Description 08/21/2024 Orders Only [facility] [address] [place], [place] [phone] Carla Miranda Social History Tobacco Use Types Packs/Day Years [...] Description 02/28/2025 10:15 AM EST Procedure Visit [facility] MEDICINE [address] [place] [address] Jocelyn Brito CNM [address] [place] [address] documented as of this encounter Procedures Procedure Name Priority Date/Time Associated Diagnosis Comments HPV MRNA E6/E7 REFLEX TO HPV 16, 18/45 Routine 03/02/2024 12:00 AM EST documented in this encounter Results * (ABNORMAL) HPV mRNA E6/E7 w/Reflex to HPV Genotypes 16, 18/45 (03/02/2024 12:00 AM EST) us Historical Provider LAB CYTOLOGY ORDERABLES F inal Result [facility] [address] [place] [address] [phone] documented in this encounter Visit Diagnoses Not on filedocumented in this encounter Additional Health Concerns Assessment Noted Time PHQ-9 Depression Total Score: 9 07/19/19 24 11:43 AM EDT documented as of this encounter Care Teams [employer] Solutions Sales Consultant Relationship Specialty Start Date End Date Anupama Black MD [address] [place] [address] PCP - General Family Medicine 12/28/23 documented as of this encounter
--- OUTSIDE RECORDS SUMMARY | 2024-12-26 15:52 | XMS_ITS | Clinical Summary ---
Author Organization [facility] Address [address] [place] [address] Care Team Providers Care Polysomnography Technologist Name Role Phone Unavailable Primary Care Provider [...]
--- OUTSIDE RECORDS SUMMARY | 2024-12-26 15:53 | XMS_ITS | Clinical Summary ---
Author Organization [facility] it Address [address] [place] [address] Care Team Providers Care Yield Clerk Name Role Phone Unavailable Primary Care Provider [...] Vaccine ( - 2023-2 5 season) 2023 Depression Screening 04/26/2024 Influenza Vaccine (#1) 2024 HIB Vaccines Aged Out No longer eligi [...] 5 Years) and At-Risk Patients (6 to 49 Years) Aged Out No longer eligible b ased on patient's age to complete this topic RSV Immunization Patients Un [place] 20 months Aged Out No longer eligible b ased on patient's age to complete this topic Varicella Vaccines Aged Out No longer eligible based on patient's age to complete this topic
--- OUTSIDE RECORDS SUMMARY | 2024-12-26 15:53 | XMS_ITS | Encounter Summary ---
Author Organization [employer] Address [address] [place] [address], [place] [address] Care Team Providers Care Mold Carrier Name Role Phone Felipa Romero Primary Care Provider [phone] Anupama Black MD Primary Care Provider [phone] Encounter Details Date Type Department Care Team (Late st Contact Info) Description 03/14/2022 Abstract [facility] MEDICINE [address] [place] [address] Provider, MD Andrew Social History Tobacco Use Types Packs/Day Years [...] Description 02/28/2025 10:15 AM EST Procedure Visit [facility] MEDIC[facility] [address] [place] [address] Jocelyn Brito CNM [address] [place] [address] documented as of this encounter Visit Diagnoses Not on filedocumented in this encounter Care Teams Mold Carrier Relationship Specialty Start Date End Date Felipa Romero FNP [address] [place] [address] PCP - General Family Medicine 02/12/22 12/27/23 Anupama Black MD [address] [place] [phone] PCP - General Family Medicine 12/28/23 documented as of this encounter
--- OUTSIDE RECORDS SUMMARY | 2024-12-26 15:53 | XMS_ITS | Encounter Summary ---
Author Organization [employer] Address [address] [place] [address] 7 [place] [address] Care Team Providers Care Hospice Director Name Role Phone Felipa Romero Primary Care Provider [phone] Anupama Black MD Primary Care Provider [phone] Encounter Details Date Type Department Care Team ([facility] st Contact Info) Description 04/03/2022 Telephone [facility] MEDICINE [address] [place] [address] Felipa Romero FNP [address] [place] [address] Social History Tobacco Use Types Packs/Day Years [...] PM EST documented as of this encounter Functional Status * Over the past 2 weeks, how often have you been bothered by any of the following problems? Question Answer Date of Assessment Author Little interest or pleasure in doing things Not at all 04/03/2022 3:04 PM Kaity Montenegro [place] Feeling down, depressed, or hopeless Not at all 04/03/2022 3:04 PM Kaity Montenegro MA Patient Health Questionnaire -2 Score 0 04/03/2022 3:04 PM EST Kaity Erwin MA documented as of this encounter Plan of Treatment Upcoming Encounters Date Type Department Care Team (Late st Contact Info) Description 02/28/2025 10:15 AM EST Procedure Visit [facility] MEDICINE [address] [place] [address] Jocelyn Brito CNM [address] [place] [address] documented as of this encounter Visit Diagnoses Not on filedocumented in this encounter Care Teams Hospice Director Relationship Specialty Start Date End Date Felipa Romero FNP [address] [place] [address] PCP - General Family Medicine 02/12/22 12/27/23 Anupama Black MD [address] [place] [address] PCP - General Family Medicine 12/28/23 documented as of this encounter
[2024-12-28 21:19] LABS: TS Negative Control Passed; TS Panel A 0; TS Panel B 0; TS Positive Control Passed; TSpotTB Negative (Negative)
== END 2024-12-26 14:39 | disposition home or self-care (01) ==
LOC: HO.HHCL 14:38
PROVIDERS: PCP General Practice; Visit Provider General Practice
DX: Z11.1 Encounter for screening for respiratory tuberculosis (principal)
CPT/HCPCS: 36415; 86481

== ENCOUNTER 2025-01-05 14:34 | Outpatient (AMB) | payer MEDICAID, SELFPAY ==
[2025-01-05 14:42] VITALS: BP 106/68; PULSE 94; O2SAT 98; BMI 31.2
--- NOTE | 2025-01-05 14:42 | MHC.OFFVIS ---
Vital Signs 01/05/25 14:42 Height 5 ft 1 in Weight 165 lb BMI 31.2 BP 106/68 Blood Pressure Location Lt brachial Position Sitting Pulse 94 Pulse Source Pulse Oximeter Pulse Oximetry (%) 98 Oxygen Delivery Method Room Air Intake Visit Reasons: 6 mo Intake Note: ESTABLISHED PATIENT for mgmt of GERD, IBS + constipation. Chief Complaint; C.O. complications of GLP 1 therapy. Pt states she is experiencing frequent N+V, bloating, gas, and abd discomfort. Frame Pulley Mortising Machine Operator Required: No Information Interpreted: clinical only Accompanied by: Self / Same As Patient Allergies cinnamon Allergy (Intermediate, Verified 06/26/24 13:08) Hives peanut Allergy (Mild, Verified 06/26/24 13:08) Unknown HPI HPI 6 mo: Details: LAST VISIT IBS (irritable bowel syndrome) Postprandial abdominal bloating Constipation Plan Patient will continue taking pantoprazole in the morning. Avoid dietary triggers a late night snacking. Staying upright for minimum 3 hours after meals discussed with patient. Patient was encouraged to increase fluid intake and activity to promote better bowel motility. Take fiber with pre and probiotic daily. Follow-up in 6 months. Patient was encouraged to call our office if she will have any GI concerning symptoms. She is agreeable to this plan and verbalizes understanding of instructions. She was given the opportunity to ask questions and all questions answered. ? Thank you for allowing to participate in her care Refilled pantoprazole 40 mg PO QAM 90 tabs 2RF K21.9 Discontinued sennosides (Natural Senna Laxative) Discontinued Reason: Patient no longer taking 17.2 mg (2 x 8.6 mg) PO BEDTIME 60 tabs 3RF constipation K59.00 TODAY'S VISIT: Patient is here today for follow-up. Patient reports that she is continuing to have abdominal bloating and pain. Patient is taking Trulicity, however she states that after she takes it for day or 2 she feels like she has no appetite. Patient tries to eat something because sometimes she goes all day without eating and she will have epigastric pain. Discussed with patient that GLP 1 drugs work by slowing down the motility of her stomach and small bowel that is why she feels full and not hungry. Patient frequently skips the dose of Trulicity because she does not like how it makes her feel. She states that blood sugars are going of when she does this. Patient does not like help this medication is making her feel. She will have appointment with her PCP and will discuss it. Patient reports occasional dyspepsia without dysphagia or odynophagia. Patient reports that she moves her bowels, does not feel like she empties her bowels completely. Frequent abdominal bloating even when she does not eat most of the day. Not always related to meals. Patient denies melena, hematochezia, unintentional weight loss or ribbon like stools. [facility] Medical History Diabetes Surgical History H/O endoscopy H/O colonoscopy Hx laparoscopic cholecystectomy Hx of breast reduction, elective Social History Are you a primary personal care attendant to a significant other at home: No Do you presently have visiting nurse or other home services: No Patient Tobacco Use Status: Never used Tobacco Current occupational status: unemployed Review of Systems Const Denies weight gain and Denies weight loss ENT Reports no additional complaints, Denies dysphagia and Denies odynophagia Card Reports no additional complaints Resp Reports no additional complaints GI Reports abdominal pain, Reports belching, Denies melena, Reports bloating, Denies change in bowel habits, Reports constipation, Denies dysphagia, Denies excessive flatus, Denies dyspepsia, Reports heartburn, Denies diarrhea, Denies loose stools, Denies nausea, Denies odynophagia and Denies vomiting Reports no additional complaints Musc Reports no additional complaints Neuro Reports no additional complaints Psych Reports no additional complaints Endo Reports no additional complaints Physical Exam Vital Signs: Last Vital Signs Pulse 94 01/05/25 14:42 BP 106/68 01/05/25 14:42 Pulse Ox 98 01/05/25 14:42 Oxygen Delivery Method Room Air 01/05/25 14:42 BMI result Body Mass Index 31.2 Const General: healthy appearing and no acute distress Nutritional Appearance: obese Orientation/consciousness: patient oriented x3 Resp Effort & Inspection: normal respiratory effort, able to speak in complete sentences, no tracheal deviation and symmetric chest movement Auscultation: clear to auscultation bilaterally Cardio Rate: regular rate GI Inspection: Yes normal to inspection, No distended and Yes obesity Palpation (GI): Soft to palpation, not firm, nontender and No hepatosplenomegaly present Auscultation: normal bowel sounds General: Yes no CVA tenderness Back/Spine/Pelvis Back: no CVA tenderness Skin General skin exam: elasticity normal, turgor normal and dry skin Neuro General: patient oriented x3 Psych Appearance: grossly normal Mental Status: mental status grossly normal Assessment & Plan Assessment & Plan (1) Irritable bowel syndrome: Code(s): K58.9 - Irritable bowel syndrome, unspecified Qualifiers: Irritable bowel syndrome type: with both diarrhea and constipation Qualified Code(s): K58.2 - Mixed irritable bowel syndrome (2) Postprandial abdominal bloating: Code(s): R14.0 - Abdominal distension (gaseous) (3) Constipation: Code(s): K59.00 - Constipation, unspecified Qualifiers: Constipation type: slow transit constipation Qualified Code(s): K59.01 - Slow transit constipation (4) Postprandial epigastric pain: Code(s): R10.13 - Epigastric pain Plan Long discussion with patient about dietary choices. Patient is craving fatty food. She is stopping Trulicity because she does not like the feeling of not being hungry. When she does eat pork or fried food which she does eat often she burps, reports that blood bread. Does not move her bowels well. Patient was encouraged to take Senokot daily to help her empty better. Increase fluid intake and activity to promote better bowel motility. Patient was encouraged to eat smaller meals and more often. Speak to PCP about name be choosing different GLP 1 like Mounjaro. Educated patient about how medication like that works and then eat for eating smaller meals and avoid over eating discussed with patient. Patient will continue taking pantoprazole daily. Again avoid dietary triggers. Patient will follow-up in 6 months, sooner on as needed basis. She is agreeable to this plan and verbalizes understanding of instructions. She was given the opportunity to ask questions and all questions answered. Thank you for allowing me to participate in her care Medications: Refilled pantoprazole 40 mg PO QAM 90 tabs 2RF K21.9 - Gastro-esophageal reflux disease without esophagitis Coding Level of Care Code Est Pt Level 4 (29914) Complex EM visit Add On G2211 Diagnoses Irritable bowel syndrome with both constipation and diarrhea K58.2 Irritable bowel syndrome type: with both diarrhea and constipation Postprandial abdominal bloating R14.0 Slow transit constipation K59.01 Constipation type: slow transit constipation Postprandial epigastric pain R10.13 Time Spent (min) 35 Comment 25 minutes spent with patient and additional 10 minutes spent reviewing her records
--- OUTSIDE RECORDS SUMMARY | 2025-01-05 17:20 | XMS_ITS | Clinical Summary ---
Author Organization [facility] Address [address] [place] [address] Care Team Providers Care Measuring Machine Operator Name Role Phone Unavailable Primary Care [...]
--- OUTSIDE RECORDS SUMMARY | 2025-01-05 17:20 | XMS_ITS | Encounter Summary ---
Author Organization [employer] Address [address] [place] [address] 7 [place] [address] Care Team Providers Care Sight Effects Specialist Name Role Phone Felipa Romero Primary Care Provider [phone] Anupama Black MD Primary Care Provider [phone] Encounter Details Date Type Department Care Team ([facility] st Contact Info) Description 04/03/[address] [facility] [address] [place] [address] Felipa Romero FNP [address] [place] [address] Social History Tobacco Use Types Packs/Day Years [...] things Not at all 04/03/2022 3:04 PM Katiy Montenegro [place] Feeling down, depressed, or hopeless Not at all 04/03/2022 3:04 PM Kaity Montenegro [place] Patient Health Questionnaire -2 Score 0 04/03/2022 3:04 PM EST Kaity Erwin [place] documented as of this encounter Plan of Treatment Upcoming Encounters Date Type Department Care Team (Late st Contact Info) Description 02/28/2025 10:15 AM EST Procedure Visit [facility] [address] [place] [address] Jocelyn Brito CNM [address] [place] [address] documented as of this encounter Visit Diagnoses Not on filedocumented in this encounter Care Teams Sight Effects Specialist Relationship Specialty Start Date End Date Felipa Romero FNP [address] [place] [address] PCP - General Family Medicine 02/12/22 12/27/23 Anupama Black MD [address] [place] [address] PCP - General Family Medicine 12/28/23 documented as of this encounter
--- OUTSIDE RECORDS SUMMARY | 2025-01-05 17:20 | XMS_ITS | Clinical Summary ---
Author Organization [employer] Address [address] [facility] 7t [place] [address] Care Team Providers Care Grain Oilseed Or Pasture Farm Manager Name Role Phone Anupama Black MD Primary Care Provider [phone] Allergies Active Allergy Reactions Criticality Noted Date [...] mellitus with other specified complication, unspecified whether terminal clerk insulin use ([facility]) 1 each by Other route 3 times [...] Type Department Care Team Description 12/26/2024 Telephone [facility]INE [address] [place] [address] Sowmya Rivers RN Lab Orders 12/21/2024 Telephone [facility] [address] [place] [address] Jaylene Philip MA 11/30/2024 Telephone [facility] [address] [place] [address] Anupama Black MD from Last 3 Months [...] 10:15 AM EST Procedure Visit [facility] [address] [place], [place] [phone] Vineet Mcrae CNM [address] [place] [address] Health Maintenance Due Date Last Done Comments [...] Procedure Name Priority Date/Time Associated Diagnosis Comments T-SPOT(R).TB Routine 12/26/2024 3:13 PM EDT Screening examination for pulmonary tuberculosis ALBUMIN, RANDOM URINE W/CREATININE Routine 07/05/2024 2:50 PM EDT Type 2 diabetes mellitus with other specified complication, unspecified whether half-way insulin use (CMS/HCC) LIPID PANEL, STANDARD Routine 07/05/2024 2:50 PM EDT Type 2 diabetes mellitus with other specified complication, unspecified whether half-way insulin use (CMS/HCC) POCT GLYCATED HEMOGLOBIN, TOTAL Routine 07/05/2024 2:19 PM EDT Type 2 diabetes mellitus with other specified complication, unspecified whether half-way insulin use (CMS/HCC) BI MAMMOGRAM SCREENING TOMOSYNTHESIS [...] Recently Relevant to Health Maintenance Results * T-SPOT??.TB (12/26/2024 3:13 PM EDT) [facility] T Spot TB Negative Negative [facility] Comment:A negative test resu lt does not exclude the possibilityof exposure to or infection with Mycobacteriumtuberculosis (M. tuberculosis). Patients with recentexposure to TB infected individuals exhibiting anegative T-SPOT.TB result should be considered forretesting within 6 weeks or if other relevant clinicalsymptoms indicate. Results from T-SPOT.TB testing mustbe used in conjunction with each individual'sepidemiological history, current medical status,and results of other diagnostic evaluations.The T-SPOT.TB test is qualitative and results arereported as positive, borderline, or negative, giventhat the test controls perform as expected. In linewith the Centers for Disease Control and Prevention's2010 recommendation to report quantitative measurementsalongside the qualitative result, the laboratoryprovides spot counts for informational purposes only.The T-SPOT.TB test should not be interpreted as aquantitative test. TS PANEL A 0 [facility] TS PANEL B 0 [facility] Negative Control Passed [facility] Positive Control Passed [facility] Comment:For additional infor matlindsey, please refer tohttp://education.News Republic/faq/VEI870(This link is being provided for informational/educational purposes only.)REPORT COMMENT:REC'D AT [facility] TEST WAS PERFORMED AT:[facility]/[employer] [id number] [place] [address]NIYCFSYDINO ALVARADO MD,PHD 12/26/2024 3:13 PM EDT 12/26/2024 4:00 PM EDT us Anupama Black MD LAB BLOOD ORDERABLES Final Res ult [facility] [address] [place] [phone] * Albumin, Random Urine W/Creatinine (07/05/2024 2:50 PM EDT) Creatinine, Urine 174.09 mg/dL [facility] Microalbumin Urine 10.0 mg/L [facility] Microalbum Creatinine Ratio Ur 5.7 <30 ug/mg cr [facility] Comment:Albumin/Creatinine R atio Reference Ranges: Normal: < 30 ug/mg creatinine Microalbuminuria: 30 - 300 ug/mg creatinineClinical Albuminuria: > 300 ug/mg creatinine Urine (Urine, Random) 07/05/2024 2:50 PM EDT 07/05/2024 4:19 PM EDT Anupama Black MD LAB URINE ORDERABLES Final Res ult Performing Organization Address [facility] Co de Phone Number [facility] [address] [place] [address] [phone] * (ABNORMAL) Lipid Panel, Standard (07/05/2024 2:50 PM EDT) Triglycerides 135 <150 mg/dL [facility] Comment:Desirable Triglyceri de: less than 150 mg/dLBorderline High Triglyceride 150-199 mg/dLHigh Triglyceride: 200-499 mg/dLVery High Triglyceride: greater than or equal to 5OO mg/dL Cholesterol 182 <200 mg/dL [facility] Comment:Desirable Cholestero l: less than 200 mg/dLBorderline High Cholesterol: 200-239 mg/dLHigh Cholesterol: greater than 239 mg/dL LDL Cholesterol Calculated 110(H) <100 mg/dL [facility] Comment:Desirable LDL: less than 100 mg/dLNear Optimal/Above Optimal LDL: 110- 129 mg/dLBorderline High LDL: 130-159 mg/dLHigh LDL: 160-189 mg/dLVery High LDL: greater than or equal to 190 mg/dL HDL Cholesterol 45 >40 mg/dL [facility] Comment:Desirable HDL: great er than 40 mg/dL Note: This HDL assay may give artificially low results in patients with liver disease. Blood Venous blood specimen / Unknown 07/05/2024 2:50 PM EDT 07/05/2024 4:51 PM EDT Anupama Black MD LAB BLOOD ORDERABLES Final Res ult Performing Organization Address City/[facility]/ZIP Co de Phone Number [facility] [address] [place] [address] [phone] * (ABNORMAL) POCT HGB A1C (07/05/2024 2:19 PM EDT) Hemoglobin A1C 7.4(A) 4.0 - 6.0 % QC Media Lot # [id number] Lot# Expiration Date ,059 Blood 07/05/2024 2:19 PM EDT Anupaam Black MD POINT OF CARE TEST ENTER/EDIT ORDERABLES Final Result * BI Mammogram Screening Tomosynthesis Bilateral (04/12/2024 12:10 PM EST) Anatomical Region Laterality Modality Breast Bilateral Mammography 04/12/2024 12:1 0 PM EST Narrative 04/24/2024 2:20 PM EST [facility] [address] [place] [address] Mammography Report Signed Patient: Iraida Basilio MR#: [id number] : 1985 Acct:[id number] Age/Sex: 38 / F ADM Date: 04/12/24 Loc: HO.MAMMO Attending Dr: Vineet Mcrae CNM Ordering Physician: VINEET MCRAE CNM Results: 2 Benign Findings Date of Service: 04/12/24 Follow Up: 1 Year From Orig [facility] Mammogram Procedure(s): MM tomosynthesis screening BI Accession Number(s): [id number] cc: Felipa Romero GLOBAL REGULATORY AFFAIRS MANAGER; VINEET MCRAE CNM EXAMINATION: MM SCREENING DIGITAL [...] 04/24/24 1417 DD/ 1210 TD/TT: 04/12/24 1222 Computer Console Operator: Procedure Note Donotuseinterpreter, Image - 04/24/2024 [facility] [address] [place], [place] [address] Mammography Report Signed Patient: Iraida Basilio MMR#: [id number] : 1985Acct:[id number] Age/Sex: 38 / FADM Date: 04/12/24 Loc: HO.MAMMO Attending Dr: Vineet Mcrae CNM Ordering Physician: VINEET MCRAEesults: 2 Benign Findings Date of Service: 04/12/24Follow Up: 1 Year From Orig inal Mammogram Procedure(s): MM tomosynthesis screening BI Accession Number(s): [id number] cc: Felipa Romero GLOBAL REGULATORY AFFAIRS MANAGER; VINEET MCRAE CNM EXAMINATION: MM SCREENING DIGITAL [...] 04/24/24 1417 DD/ 1210 TD/TT: 04/12/24 1222 Computer Console Operator: Vineet Mcrae CNM IMG BI PROCEDURES Final R esult * (ABNORMAL) HPV mRNA E6/E7 w/Reflex to HPV Genotypes 16, 18/45 (03/02/2024 12:00 AM EST) us Historical Provider MD LAB CYTOLOGY ORDERABLES F inal Result [facility] [address] [place] [phone] * Pap Smear (03/02/2024 12:00 AM EST) Swab Cervix uteri structure / Unknown 03/02/2024 03/03/2024 10:20 AM EST Narrative [facility] - 03/31/2024 11:42 AM EST ----- ------- Name: Iraida Basilio Age/Sex: 38/F : 1985 Unit#: [id number] Attend Dr: Re03/02/24 Status: PRE REF Location: [facility] Disch: ----- ------- SPEC : [id number] RECD: 03/03/240 STATUS: SAMMI GONZALEZ NUM: [id number] ISADORA: 03/02/24-[address]: VINEET MCRAE CNM ENTERED: 03/03/24-1023 SP TYPE: Pap Smr OTHR DR: ORDERED: Pap Smear THIS IS A [...] (signature on file) Katherine Blood 03/31/24 1142 ----- ------- END OF REPORT us Vineet Mcrae CNM LAB CYTOLOGY ORDERABLES F inal Result [facility] [address] [place] [address] [phone] * HEPATITIS C AB W/REFL TO [...] a test for HCV RNA (test code 49304) is suggested. For additional information please refer to http://tok tok tok.News Republic/faq/JVC21k5 (This link is being provided for informational/ educational purposes only.) 08/01/2020 11:1 0 AM EDT Kelsey Alamo [facility] HISTORICAL/NON ORDERABLE LABS Final Result [facility] [address] * HIV 1/2 ANTIGEN/ANTIBODY,FOURTH GENERATION W/RFL [...] purpose. For additional information please refer to http://tok tok tok.News Republic/faq/BPY565 (This link is being provided for informational/ educational purposes only.) The performance of this assay has not been clinically validated in patients less than 2 years old. 08/01/2020 11:1 0 AM EDT us Kelsey Alamo [facility] LAB BLOOD ORDERABLES Final Res ult [facility] [address] [place] [address], from Last 3 Months or Most Recently Relevant to Health Maintenance Insurance [place] [facility] [place] [id number] * Guarantor: Michel Basiliossica [employer] Account Type Relation to Patient Date of Phone Billing Address Personal/Family Self [address] [facility] [address] [facility] [place] Care Teams Grain Oilseed Or Pasture Farm Manager Relationship Specialty Start Date End Date Anupama Black MD [address] [facility] [place] PCP - General Family Medicine 12/28/23
--- OUTSIDE RECORDS SUMMARY | 2025-01-05 17:20 | XMS_ITS | Encounter Summary ---
Author Organization [employer] Address [address] [facility] 7t [place] [address] Care Team Providers Care Commercial Crabber Name Role Phone Anupama Black MD Primary Care Provider [phone] Encounter Details Date Type Department Care Team ([facility] st Contact Info) Description 08/21/2024 Orders Only [facility] [address] [place], [place] [phone] Carla Miranda Social History Tobacco Use Types [...] Description 02/28/2025 10:15 AM EST Procedure Visit [facility] [address] [place] [address] Jocelyn Brito CNM [address] [place] [address] documented as of this encounter Procedures Procedure Name Priority Date/Time Associated Diagnosis Comments HPV MRNA E6/E7 REFLEX TO HPV 16, 18/45 Routine 03/02/2024 12:00 AM EST documented in this encounter Results * (ABNORMAL) HPV mRNA E6/E7 w/Reflex to HPV Genotypes 16, 18/45 (03/02/2024 12:00 AM EST) us Historical Provider LAB CYTOLOGY ORDERABLES F inal Result [facility] [address] [place] [address] [phone] documented in this encounter Visit Diagnoses Not on filedocumented in this encounter Additional Health Concerns Assessment Noted Time PHQ-9 Depression Total Score: 9 07/19/19 24 11:43 AM EDT documented as of this encounter Care Teams Commercial Crabber Relationship Specialty Start Date End Date Anupama Black MD [address] [place] [address] PCP - General Family Medicine 12/28/23 documented as of this encounter
--- OUTSIDE RECORDS SUMMARY | 2025-01-05 17:20 | XMS_ITS | Encounter Summary ---
Author Organization [employer] Address [address] [place] [address] [address] [place] [address] Care Team Providers Care Dining Services Director Name Role Phone Felipa Romero Primary Care Provider [phone] Anupama Black MD Primary Care Provider [phone] Encounter Details Date Type Department Care Team (Late st Contact Info) Description 03/14/2022 Abstract [facility] MEDICINE [address] [place] [address] Provider, MD Andrew Social History Tobacco Use [...] Description 02/28/2025 10:15 AM EST Procedure Visit [facility] [address] [place] [address] Jocelyn Brito CNM [address] [place] [address] documented as of this encounter Visit Diagnoses Not on filedocumented in this encounter Care Teams Dining Services Director Relationship Specialty Start Date End Date Felipa Romero FNP [address] [place] [address] PCP - General Family Medicine 02/12/22 12/27/23 Anupama Black MD [address] [place] [address] PCP - General Family Medicine 12/28/23 documented as of this encounter
--- OUTSIDE RECORDS SUMMARY | 2025-01-05 17:21 | XMS_ITS | Clinical Summary ---
Author Organization [facility] Address [address] [place] [address] Care Team Providers Care Aircraft Armorer Name Role Phone Unavailable Primary Care Provider [...] Cervical Cancer Screening: P ap Smear 08/21/2004 Depression Screening 04/26/2024 COVID-19 Vaccine ( - 2023-2 5 season) 2024 Influenza Vaccine (#1) 2024 HIB Vaccines Aged [...]
== END 2025-01-05 14:53 | disposition home or self-care (01) ==
LOC: HO.HGI 14:35
PROVIDERS: PCP General Practice; Visit Provider Nurse Practitioner Family
DX: K58.2 Mixed irritable bowel syndrome (principal); R14.0 Abdominal distension (gaseous); K59.01 Slow transit constipation; R10.13 Epigastric pain
CPT/HCPCS: 99214

== ENCOUNTER → 2025-01-05 14:34 | Outpatient (BNVA) | payer MEDICAID, SELFPAY | PROVIDERS: PCP General Practice; Visit Provider Nurse Practitioner Family | DX: K59.01 Slow transit constipation (principal); R10.13 Epigastric pain; R14.0 Abdominal distension (gaseous); K58.2 Mixed irritable bowel syndrome | CPT/HCPCS: 99212 ==

== ENCOUNTER 2025-01-25 13:55 | Outpatient (REF) | payer MEDICAID, SELFPAY ==
--- NOTE | ~2025-01-25 | XR_ITS ---
EXAMINATION: XR KNEE, RIGHT CLINICAL INFORMATION: b/l knee pain s/p fall COMPARISON: 04/06/2018 TECHNIQUE: Four views of the right knee. FINDINGS: There is small amount of synovial fluid in suprapatellar pouch. There is minimal narrowing of medial joint space. There are small marginal osteophytes involving the tibial plateau and mediofemoral condyle. Intercondylar tubercles are peaked. No fracture is identified. 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 Electronically signed by: Veto Candelario MD 01/25/2025 03:09 PM EDT
--- NOTE | ~2025-01-25 | XR_ITS ---
EXAMINATION: XR THORACIC SPINE CLINICAL INFORMATION: PAIN COMPARISON: None available. TECHNIQUE: 2 views of the thoracic spine were obtained. FINDINGS: There is no significant scoliosis. There is a normal thoracic kyphosis. There is no fracture, compression deformity, or suspicious bone lesion. There is normal alignment without subluxation. There is mild disc degeneration the mid and inferior spine levels. There is normal facet alignment. The imaged soft tissues, mediastinal structures, and lungs appear normal. There are cholecystectomy clips. XR/XR thoracic spine 2V IMPRESSION: There are no acute findings of the thoracic spine. There is mild disc degeneration present. Electronically signed by: Sudhakar Villagomez MD 01/25/2025 03:07 PM EDT
--- NOTE | ~2025-01-25 | XR_ITS ---
EXAMINATION: XR KNEE, LEFT CLINICAL INFORMATION: b/l knee pain s/p fall COMPARISON: Previous x-ray May 2023 TECHNIQUE: Four views of the left knee. FINDINGS: Stable postsurgical change from ACL repair. No fracture or joint effusion. Alignment is anatomic. Mild degenerative change at the medial femoral tibial joint. No abnormal soft tissue calcification. XR/XR knee LT 4V IMPRESSION: No fracture or effusion. Stable postsurgical change from ACL repair. Electronically signed by: Bren Demarco MD 01/25/2025 03:09 PM EDT
--- NOTE | ~2025-01-25 | XR_ITS ---
EXAMINATION: XR LUMBOSACRAL SPINE CLINICAL INFORMATION: Mid to low back pain s/p fall COMPARISON: None available. TECHNIQUE: Three views of the lumbosacral spine. FINDINGS: There is a minimal levoconvex scoliosis, apex at L4. There is mild straightening of normal lumbar lordosis. There is no subluxation. There is no fracture, compression deformity, or suspicious bone lesion. There is mild to moderate disc degeneration focally at L5-S1. Remainder of the intervertebral discs are preserved. There is normal facet alignment and appearance. There is no soft tissue abnormality. There is an Essure tubal occlusion device noted in the left pelvis with an abutting surgical clip. XR/XR lumbar spine 2-3V IMPRESSION: 1. No acute findings of the lumbar spine. Electronically signed by: Sudhakar Villagomez MD 01/25/2025 03:10 PM EDT
--- OUTSIDE RECORDS SUMMARY | 2025-01-25 13:20 | XMS_ITS | Encounter Summary ---
Author Organization [employer] Address [address] [place] [address] 7 [place] [address] Care Team Providers Care Exceptional Needs Teacher Name Role Phone Anupama Black MD Primary Care Provider [phone] Reason for Referral * Consultation (Urgent) - Pending Review Specialty Diagnoses / Procedures Referred By Amber guidry Referred To Contact Orthopaedic Surgery Diagnoses Acute pain of both knees Dawn Gamble DO [address] [place] [address] Phone: tel: fax: Referral ID Status Reason Start Date Expiration Date Visits Requested Visits Authorized [id number] Pending Review Specialty Services Required 01/25/2025 01/25/2026 1 1 Reason for Visit * Reason Comments Back Pain Encounter Details Date Type Department Care Team (Late st Contact Info) Description 01/25/2025 1:20 PM EDT Office Visit [facility] [address] [place] [address] Acute bilateral low back pain without sciatica (Primary Dx); Acute mid back pain; Acute pain of both knees Social History Tobacco Use Types Packs/Day Years [...] Sign Reading Time Taken Comments Blood Pressure 132/88 01/25/2025 1:01 PM EDT Pulse 84 01/25/2025 1:01 PM EDT Temperature 36.3 C (97.4 F) 01/25/2025 1:01 PM EDT Respiratory Rate 20 01/25/2025 1:01 PM EDT Oxygen Saturation 98% 01/25/2025 1:01 PM EDT Inhaled Oxygen Concentration - - Weight 75.8 kg (167 lb 3.2 oz) 01/25/2025 1:01 P M EDT Height - - Body Mass Index 29.62 07/05/2024 2:09 PM EDT documented in this encounter Plan of Treatment Upcoming Encounters Date Type Department Care Team (Late st Contact Info) Description 02/23/2025 10:15 AM EDT Office Visit [facility] [address] [place] [address] Nyla, Maria Del Rosario, SORT LINE [address] [place] [address] 02/28/2025 10:15 AM EST Procedure Visit [facility] [address] [place], [place] [phone] Jocelyn Brito, NAMAN [address] [place], [place] [phone] Scheduled Referrals Name Type Priority Associated Diagnoses Order Schedule Referral to Orthopaedic Surgery Outpatient Referral Urgent Acute pain of both knees Expected: 01/25/2025 (Approximate), Expires: 01/25/2026 documented as of this encounter Procedures Procedure Name Priority Date/Time Associated Diagnosis Comments XR KNEE 4+ VIEWS RIGHT Routine 01/25/2025 2:30 PM EDT Acute bilateral low back pain without sciatica Acute mid back pain Acute pain of both knees XR KNEE 4+ VIEWS LEFT STAT 01/25/2025 2:27 PM EDT Acute bilateral low back pain without sciatica Acute mid back pain Acute pain of both knees XR LUMBAR SPINE 2-3 VIEWS Routine 01/25/2025 2:26 PM EDT Acute bilateral low back pain without sciatica Acute mid back pain Acute pain of both knees XR THORACIC SPINE 2 VIEWS Routine 01/25/2025 2:24 PM EDT Acute bilateral low back pain without sciatica Acute mid back pain Acute pain of both knees documented in this encounter Results * XR Knee 4+ Views Right (01/25/2025 2:30 PM EDT) Anatomical Region Laterality Modality Lower Extremities, Knee Right [facility] 01/25/2025 2:30 PM EDT Narrative 01/25/2025 3:12 PM EDT [address] [address] XRay Report Signed Patient: Iraida Basilio MR#: [id number] : 1985 Acct:[id number] Age/Sex: 39 / F ADM Date: 01/25/25 Loc: [facility] Attending Dr: Dawn Gamble DO Ordering Physician: Dawn Gamble DO Date of Service: 01/25/25 Procedure(s): XR knee RT 4V Accession Number(s): [id number] cc: Anupama Black; Dawn Gamble DO Reason for Exam: b/l knee pain s/p fall EXAMINATION: XR KNEE, RIGHT CLINICAL INFORMATION: b/l knee pain s/p fall COMPARISON: 04/06/2018 TECHNIQUE: Four views of the right knee. FINDINGS: There is small amount of synovial fluid in suprapatellar pouch. There is minimal narrowing of medial joint space. There are small marginal osteophytes involving the tibial plateau and mediofemoral condyle. Intercondylar tubercles are peaked. No fracture is identified. 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 Electronically signed by: Veto Candelario MD 01/25/2025 03:09 PM EDT Dictated By: Veto Candelario MD Signed By: <Electronically signed by Veto Candelario MD in OV> 01/25/25 1509 DD/ 1430 TD/TT: 01/25/25 1430 Clinical Interviewer: Procedure Note Donotuseinterpreter, Image - 01/25/[address] [address] XRay Report Signed Patient: Iraida Basilio MMR#: [id number] : 1985Acct:[id number] Age/Sex: 39 / FADM Date: 01/25/25 Loc: HO.HHCX Attending Dr: Dawn Gamble DO Ordering Physician: Dawn Gamble DO Date of Service: 01/25/25 Procedure(s): XR knee RT 4V Accession Number(s): [id number] cc: Anupama Black; Dawn Gamble DO Reason for Exam: b/l knee pain s/p fall EXAMINATION: XR KNEE, RIGHT CLINICAL INFORMATION: b/l knee pain s/p fall COMPARISON: 04/06/2018 TECHNIQUE: Four views of the right knee. FINDINGS: There is small amount of synovial fluid in suprapatellar pouch. There is minimal narrowing of medial joint space. There are small marginal osteophytes involving the tibial plateau and mediofemoral condyle. Intercondylar tubercles are peaked. No fracture is identified. 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 Electronically signed by: Veto Candelario MD 01/25/2025 03:09 PM EDT Dictated By: Veto Candelario MD Signed By: <Electronically signed by Veto Candelario MD in OV> 01/25/25 1509 DD/ 1430 TD/TT: 01/25/25 1430 Clinical Interviewer: Dawn Gamble DO IMG XR PROCEDURES Edited Res ult - Final * XR Knee 4+ Views Left (01/25/2025 2:27 PM EDT) Anatomical Region Laterality Modality Lower Extremities, Knee Left [facility] 01/25/2025 2:27 PM EDT Narrative 01/25/2025 3:12 PM EDT [address] [address] XRay Report Signed Patient: Iraida Basilio MR#: [id number] : 1985 Acct:[id number] Age/Sex: 39 / F ADM Date: 01/25/25 Loc: HO.HHCX Attending Dr: Dawn Gamble DO Ordering Physician: Dawn Gamble DO Date of Service: 01/25/25 Procedure(s): XR knee LT 4V Accession Number(s): [id number] cc: Anupama Black; Dawn Gamble DO Reason for Exam: b/l knee pain s/p fall EXAMINATION: XR KNEE, LEFT CLINICAL INFORMATION: b/l knee pain s/p fall COMPARISON: Previous x-ray May 2023 TECHNIQUE: Four views of the left knee. FINDINGS: Stable postsurgical change from ACL repair. No fracture or joint effusion. Alignment is anatomic. Mild degenerative change at the medial femoral tibial joint. No abnormal soft tissue calcification. XR/XR knee LT 4V IMPRESSION: No fracture or effusion. Stable postsurgical change from ACL repair. Electronically signed by: Bren Demarco MD 01/25/2025 03:09 PM EDT Dictated By: Bren Demarco MD Signed By: <Electronically signed by Bren Demarco MD in OV> 01/25/25 1509 DD/ 1427 TD/TT: 01/25/25 1430 Clinical Interviewer: KATLIN Procedure Note Donotuseinterpreter, Image - 01/25/2025 [place] [address] XRay Report Signed Patient: Iraida Basilio [facility]#: [id number] : 1985Acct:[id number] Age/Sex: 39 / FADM Date: 01/25/25 Loc: .HHCX Attending Dr: Dawn Gamble DO Ordering Physician: Dawn Gamble DO Date of Service: 01/25/25 Procedure(s): XR knee LT 4V Accession Number(s): [id number] cc: Rosa M Black Jennifer A DO Reason for Exam: b/l knee pain s/p fall EXAMINATION: XR KNEE, LEFT CLINICAL INFORMATION: b/l knee pain s/p fall COMPARISON: Previous x-ray May 2023 TECHNIQUE: Four views of the left knee. FINDINGS: Stable postsurgical change from ACL repair. No fracture or joint effusion. Alignment is anatomic. Mild degenerative change at the medial femoral tibial joint. No abnormal soft tissue calcification. XR/XR knee LT 4V IMPRESSION: No fracture or effusion. Stable postsurgical change from ACL repair. Electronically signed by: Bren Demarco MD 01/25/2025 03:09 PM EDT Dictated By: Bren Demarco MD Signed By: <Electronically signed by Bren Demarco MD in OV> 01/25/25 1509 DD/ 1427 TD/TT: 01/25/25 1430 Clinical Interviewer: KATLIN Dawn Gamble DO IMG XR PROCEDURES Edited Res ult - Final * XR Lumbar Spine 2-3 Views (01/25/2025 2:26 PM EDT) Anatomical Region Laterality Modality Spine, L-spine Radiographic Meghann ging 01/25/2025 2:26 PM EDT Narrative 01/25/2025 3:12 [place] [address] XRay Report Signed Patient: Iraida Basilio MR#: [id number] : 1985 Acct:[id number] Age/Sex: 39 / F ADM Date: 01/25/25 Loc: .HHCX Attending Dr: Dawn Gamble DO Ordering Physician: Dawn Gamble DO Date of Service: 01/25/25 Procedure(s): XR lumbar spine 2-3V Accession Number(s): [id number] cc: Anupama Black; Dawn Gamble DO Reason for Exam: Mid to low back pain s/p fall EXAMINATION: XR LUMBOSACRAL SPINE CLINICAL INFORMATION: Mid to low back pain s/p fall COMPARISON: None available. TECHNIQUE: Three views of the lumbosacral spine. FINDINGS: There is a minimal levoconvex scoliosis, apex at L4. There is mild straightening of normal lumbar lordosis. There is no subluxation. There is no fracture, compression deformity, or suspicious bone lesion. There is mild to moderate disc degeneration focally at L5-S1. Remainder of the intervertebral discs are preserved. There is normal facet alignment and appearance. There is no soft tissue abnormality. There is an Essure tubal occlusion device noted in the left pelvis with an abutting surgical clip. XR/XR lumbar spine 2-3V IMPRESSION: 1. No acute findings of the lumbar spine. Electronically signed by: Sudhakar Villagomez MD 01/25/2025 03:10 PM EDT Dictated By: Sudhakar Villagomez MD Signed By: <Electronically signed by Sudhakar Villagomez MD in OV> 01/25/25 1510 DD/ 1426 TD/TT: 01/25/25 1430 Clinical Interviewer: Procedure Note Donotuseinterpreter, Image - 01/25/[address] [address] XRay Report Signed Patient: Iraida Basilio [facility]#: [id number] : 1985Acct:[id number] Age/Sex: 39 / FADM Date: 01/25/25 Loc: .HHCX Attending Dr: Dawn Gamble DO Ordering Physician: Dawn Gamble DO Date of Service: 01/25/25 Procedure(s): XR lumbar spine 2-3V Accession Number(s): [id number] cc: Anupama Black; Dawn Gamble DO Reason for Exam: Mid to low back pain s/p fall EXAMINATION: XR LUMBOSACRAL SPINE CLINICAL INFORMATION: Mid to low back pain s/p fall COMPARISON: None available. TECHNIQUE: Three views of the lumbosacral spine. FINDINGS: There is a minimal levoconvex scoliosis, apex at L4. There is mild straightening of normal lumbar lordosis. There is no subluxation. There is no fracture, compression deformity, or suspicious bone lesion. There is mild to moderate disc degeneration focally at L5-S1. Remainder of the intervertebral discs are preserved. There is normal facet alignment and appearance. There is no soft tissue abnormality. There is an Essure tubal occlusion device noted in the left pelvis with an abutting surgical clip. XR/XR lumbar spine 2-3V IMPRESSION: 1. No acute findings of the lumbar spine. Electronically signed by: Sudhakar Villagomez MD 01/25/2025 03:10 PM EDT RP Dictated By: Sudhakar Villagomez MD Signed By: <Electronically signed by Sudhakar Villagomez MD in OV> 01/25/25 1510 DD/ 1426 TD/TT: 01/25/25 1430 Clinical Interviewer: Dawn Gamble DO IMG XR PROCEDURES Edited Res ult - Final * XR Thoracic Spine 2 Views (01/25/2025 2:24 PM EDT) Anatomical Region Laterality Modality Spine, T-spine Radiographic Meghann ging 01/25/2025 2:24 PM EDT Narrative 01/25/2025 3:10 PM EDT [address] [address] XRay Report Signed Patient: Iraida Basilio MR#: [id number] : 1985 Acct:[id number] Age/Sex: 39 / F ADM Date: 01/25/25 Loc: .HHCX Attending Dr: Dawn Gamble DO Ordering Physician: Dawn Gamble DO Date of Service: 01/25/25 Procedure(s): XR thoracic spine 2V Accession Number(s): [id number] cc: Anupama Black; Dawn Gamble DO Reason for Exam: PAIN EXAMINATION: XR THORACIC SPINE CLINICAL INFORMATION: PAIN COMPARISON: None available. TECHNIQUE: 2 views of the thoracic spine were obtained. FINDINGS: There is no significant scoliosis. There is a normal thoracic kyphosis. There is no fracture, compression deformity, or suspicious bone lesion. There is normal alignment without subluxation. There is mild disc degeneration the mid and inferior spine levels. There is normal facet alignment. The imaged soft tissues, mediastinal structures, and lungs appear normal. There are cholecystectomy clips. XR/XR thoracic spine 2V IMPRESSION: There are no acute findings of the thoracic spine. There is mild disc degeneration present. Electronically signed by: Sudhakar Villagomez MD 01/25/2025 03:07 PM EDT RP Dictated By: Sudhakar Villagomez MD Signed By: <Electronically signed by Sudhakar Villagomez MD in OV> 01/25/25 1507 DD/ 23 TD/TT: 01/25/25 1430 Clinical Interviewer: Procedure Note [place], Image - 01/25/[address] [address] XRay Report Signed Patient: Iraida Basilio MMR#: [id number] : 1985Acct:[id number] Age/Sex: 39 / FADM Date: 01/25/25 [facility] Att[facility] Dr: Dawn Gamble DO Ordering Physician: Dawn Gamble DO Date of Service: 01/25/25 Procedure(s): XR thoracic spine 2V Accession Number(s): [id number] cc: Anupaam Black; Dawn Gamble DO Reason for Exam: PAIN EXAMINATION: XR THORACIC SPINE CLINICAL INFORMATION: PAIN COMPARISON: None available. TECHNIQUE: 2 views of the thoracic spine were obtained. FINDINGS: There is no significant scoliosis. There is a normal thoracic kyphosis. There is no fracture, compression deformity, or suspicious bone lesion. There is normal alignment without subluxation. There is mild disc degeneration the mid and inferior spine levels. There is normal facet alignment. The imaged soft tissues, mediastinal structures, and lungs appear normal. There are cholecystectomy clips. XR/XR thoracic spine 2V IMPRESSION: There are no acute findings of the thoracic spine. There is mild disc degeneration present. Electronically signed by: Sudhakar Villagomez MD 01/25/2025 03:07 PM EDT RP Dictated By: Sudhakar Villagomez MD Signed By: <Electronically signed by Sudhakar Villagomez MD in OV> 01/25/25 1507 DD/ 23 TD/TT: 01/25/25 1430 Clinical Interviewer: Dawn Gamble DO IMG XR PROCEDURES Edited Res ult - Final documented in this encounter Visit Diagnoses Diagnosis Acute bilateral low back pain without sciatica- Primary Acute mid back pain Acute pain of both knees documented in this encounter Additional Health Concerns Assessment Noted Time PHQ-9 Depression Total Score: 9 07/19/19 24 11:43 AM EDT documented as of this encounter Care Teams Exceptional Needs Teacher Relationship Specialty Start Date End Date nAupama Black MD [address] [place] [address] PCP - General Family Medicine 12/28/23 documented as of this encounter
--- OUTSIDE RECORDS SUMMARY | 2025-01-25 15:35 | XMS_ITS | Encounter Summary ---
Author Organization [employer] Address [address] [place] [address] 7 [place] [address] Care Team Providers Care Auto Service Writer Name Role Phone Anupama Black MD Primary Care Provider [phone] Reason for Visit * Reason Onset Date Comments Medication Question 01/23/2025 Appointment Request 01/23/2025 Encounter Details Date Type Department Care Team ([facility] Contact Info) Description 01/23/2025 Telephone [facility] [address] [place] [address] Anupama Black MD [address] [place], [place] [phone] Medication Question; Appointment Request Social History Tobacco Use Types Packs/Day Years [...] your housing situation today? I have taryn sky 07/19/[address] you li [...] encounter Miscellaneous Notes * Telephone Encounter - Ovidio Joseph [place] - 01/24/2025 11:02 AM EDT Pt has been schedule for feb 23 * Telephone Encounter - Karlee Tran - 01/23/2025 8:55 AM EDT Tc from pt requesting to schedule f/u apt on recall . Pt also is requesting an alternative medication to Dulaglutide 3 MG/0.5ML solution auto-injector she states it makes her sick , pt stopped takingmedication Contact pt at [phone] documented in this encounter Plan of Treatment Upcoming Encounters Date Type Department Care Team (Late st Contact Info) Description 02/23/2025 10:15 AM EDT Office Visit [facility] [address] [place] [address] Nyla, Maria Del Rosario, PROFESSIONAL ENGINEER [address] [place], [place] [phone] 02/28/2025 10:15 AM EST Procedure Visit [facility] [address] [place], [place] [phone] Jocelyn Brito CNM [address] [place], [place] [phone] documented as of this encounter Visit Diagnoses Not on filedocumented in this encounter Additional Health Concerns Assessment Noted Time PHQ-9 Depression Total Score: 9 07/19/19 11:43 AM EDT documented as of this encounter Care Teams Auto Service Writer Relationship Specialty Start Date End Date Anupama Black MD [address] [place] [phone] PCP - General Family Medicine 12/28/23 documented as of this encounter
--- OUTSIDE RECORDS SUMMARY | 2025-01-25 15:35 | XMS_ITS | Clinical Summary ---
Author Organization [facility] ity Address [address] [place] [address] Care Team Providers Care Subpoena Server Name Role Phone Unavailable Primary Care Provider [...] Cervical Cancer Screening: P ap Smear 08/21/2004 HPV Vaccines (1 - 3-dose SCD M series) 08/21/2010 Depression Screening 04/26/2024 COVID-19 Vaccine ( - 2023-2 5 season) 2024 Influenza Vaccine (#1) 2024 RSV Immunization Adult Patie nts (1 - 1-dose 75+ series) 08/21/2058 HIB Vaccines Aged Out No longer eligi [...]
--- OUTSIDE RECORDS SUMMARY | 2025-01-25 15:35 | XMS_ITS | Encounter Summary ---
Author Organization [employer] Address [address] [place] [address] [address] [place] [address] Care Team Providers Care Staff Physical Therapy Assistant Name Role Phone Felipa Romero Primary Care Provider [phone] Anupama Black MD Primary Care Provider [phone] Encounter Details Date Type Department Care Team (Late st Contact Info) Description 03/14/2022 Abstract [facility] [address] [place] [phone] Provider, MD Anrdew Social History Tobacco Use Types Packs/Day Years [...] Description 02/23/2025 10:15 AM EDT Office Visit [facility] [address] [place] [address] Maria Del Rosario Redmond FNP [address] [place] [address] 02/28/2025 10:15 AM EST Procedure Visit [facility] [address] [place] [address] Jocelyn Brito CNM [address] [place] [address] documented as of this encounter Visit Diagnoses Not on filedocumented in this encounter Care Teams Staff Physical Therapy Assistant Relationship Specialty Start Date End Date Felipa Romero FNP [address] [place] [address] PCP - General Family Medicine 02/12/22 12/27/23 Anupama Black MD [address] [place] [address] PCP - General Family Medicine 12/28/23 documented as of this encounter
--- OUTSIDE RECORDS SUMMARY | 2025-01-25 15:35 | XMS_ITS | Clinical Summary ---
Author Organization [email or web address] Address [address] [facility] 7t [place] [address] Care Team Providers Care Director Non Profit Name Role Phone Anupama Black MD Primary Care Provider [phone] Allergies Active Allergy Reactions Criticality Noted Date [...] mellitus with other specified complication, unspecified whether rat exterminator insulin use (HCC) 1 each by Other route 3 times [...] 90 tablet 3 5 07/06/19 26 Active baclofen (Lioresal) 10 MG tablet Take 1 tablet (10 mg) by mouth if needed in the morning, at noon, and at bedtime for muscle spasms. 60 tablet 1 5 03/26/20 25 Active naproxen (Naprosyn) 500 MG tablet Take 1 tablet (500 mg) by mouth if needed in the morning and at bedtime for mild pain. 40 tablet 1 5 01/26/20 26 Active acetaminophen (Tylenol 8 Hour) 650 MG ER tablet Take 1 tablet (650 mg) by mouth every 8 (eight) hours if needed for mild pain. Do not crush, chew, or split. 40 tablet 1 5 02/25/20 25 Active Diclofenac Sodium 1 % gel Apply 2 g topically if needed in the morning, at noon, in the evening, and at bedtime (pain). 150 g 3 5 Active traMADol (Ultram) 50 MG tabletIndicatio ns:Acute pain of both knees Take 1 tablet (50 mg) by mouth every 8 (eight) hours if needed for severe pain for up to 5 days. 15 tablet 01/31/20 25 Active Active Problems Problem Noted Date [...] Encounters Date Type Department Care Team Description 01/25/2025 1:20 PM EDT Office Visit [facility] [address] [place] [phone] Acute bilateral low back pain without sciatica (Primary Dx); Acute mid back pain; Acute pain of both knees 01/25/2025 Travel 01/23/2025 Telephone [facility] [address] [place] [address] Anupama Black MD Medication Question; Appointment Request 12/26/2024 Telephone [facility] [address] [place] [phone] Sowmya Rivers, coffee roaster helper Orders 12/21/2024 Telephone [facility] [address] [address] Jaylene Philip [place] 11/30/2024 Telephone [facility] [address] [place] [address] [phone] Anupama Black MD from Last 3 Months [...] oz) 01/25/2025 1:01 P M EDT Height 160 cm (5' 3 ) 07/05/2024 2:09 PM EDT Body Mass Index 29.62 07/05/2024 2:09 PM EDT Plan of Treatment Upcoming Encounters Date Type Department Care Team (Late st Contact Info) Description 02/23/2025 10:15 AM EDT Office Visit [facility] [address] [place] [address] KulmMaria Del Rosario singh, MASOOD [address] [place] [address] 02/28/2025 10:15 AM EST Procedure Visit [facility] [address] [place] [address] Vineet Mcrae, NAMAN [address] [place] [address] Health Maintenance Due Date Last Done Comments [...] back pain Acute pain of both knees T-SPOT(R).TB Routine 12/26/2024 3:13 PM EDT Screening examination for pulmonary tuberculosis ALBUMIN, RANDOM URINE W/CREATININE Routine 07/05/2024 2:50 PM EDT Type 2 diabetes mellitus with other specified complication, unspecified whether rat exterminator insulin use (CMS/HCC) LIPID PANEL, STANDARD Routine 07/05/2024 2:50 PM EDT Type 2 diabetes mellitus with other specified complication, unspecified whether rat exterminator insulin use (CMS/HCC) POCT GLYCATED HEMOGLOBIN, TOTAL Routine 07/05/2024 2:19 PM EDT Type 2 diabetes mellitus with other specified complication, unspecified whether fdc insulin use (CMS/HCC) BI MAMMOGRAM SCREENING TOMOSYNTHESIS [...] Recently Relevant to Health Maintenance Results * XR Knee 4+ Views Right (01/25/2025 2:30 PM EDT) Anatomical Region Laterality Modality Lower Extremities, Knee Right Radiogra phic Imaging 01/25/2025 2:30 PM EDT Narrative 01/25/2025 3:12 PM EDT [address] [address] XRay Report Signed Patient: Iraida Basilio MR#: [id number] : 1985 Acct:[id number] Age/Sex: 39 / F ADM Date: 01/25/25 [facility]: Dawn Gamble DO Ordering Physician: Dawn Gamble DO Date of Service: 01/25/25 Procedure(s): XR knee RT 4V Accession Number(s): [id number] cc: Anupama Black; Dawn Gamble DO Reason [...] 01/25/25 1509 DD/ 1430 TD/TT: 01/25/25 1430 Public Health Microbiologist: Procedure Note Donotuseinterpreter, Image - 01/25/[address] [address] XRay Report Signed Patient: Iraida Basilio MMR#: [id number] : 1985Acct:[id number] Age/Sex: 39 / FADM Date: 01/25/25 Loc: HO.[facility]X Attending Dr: Dawn Gamble DO Ordering Physician: Dawn Gamble DO Date of Service: 01/25/25 Procedure(s): XR knee RT 4V Accession Number(s): [id number] cc: Anupama Black; Dawn Gamble DO Reason [...] 01/25/25 1509 DD/ 1430 TD/TT: 01/25/25 1430 Public Health Microbiologist: Dawn Gamble DO IMG XR PROCEDURES Edited Res ult - Final * XR Knee 4+ Views Left (01/25/2025 2:27 PM EDT) Anatomical Region Laterality Modality Lower Extremities, Knee Left Radiogra phic Imaging 01/25/2025 2:27 PM EDT Narrative 01/25/2025 3:12 PM EDT [facility] [address] [place] [address] XRay Report Signed Patient: Iraida Basilio MR#: [id number] : 1985 Acct:[id number] Age/Sex: 39 / F ADM Date: 01/25/25 Loc: [facility] Attending Dr: Dawn Gamble DO Ordering Physician: Dawn Gamble DO Date of Service: 01/25/25 Procedure(s): XR knee LT 4V Accession Number(s): [id number] cc: Anupama Black; Dawn Gamble DO Reason [...] 01/25/25 1509 DD/ 1427 TD/TT: 01/25/25 1430 Public Health Microbiologist: KATLIN Procedure Note Donotuseinterpreter, Image - 01/25/2025 [place] [address] XRay Report Signed Patient: Iraida Basilio [facility]#: [id number] : 1985Acct:[id number] Age/Sex: 39 / FADM Date: 01/25/25 Loc: [facility] Attending Dr: Dawn Gamble DO Ordering Physician: Dawn Gamble DO Date of Service: 01/25/25 Procedure(s): XR knee LT 4V Accession Number(s): [id number] cc: Anupama Black; Dawn Gamble DO Reason [...] 01/25/25 1509 DD/ 1427 TD/TT: 01/25/25 1430 Public Health Microbiologist: KATLIN Dawn Gmable DO IMG XR PROCEDURES Edited Res ult - Final * XR Lumbar Spine 2-3 Views (01/25/2025 2:26 PM EDT) Anatomical Region Laterality Modality Spine, L-spine Radiographic Meghann ging 01/25/2025 2:26 PM EDT Narrative 01/25/2025 3:12 [place] [address] XRay Report Signed Patient: Iraida Basilio MR#: [id number] : 1985 Acct:[id number] Age/Sex: 39 / F ADM Date: 01/25/25 Loc: .[facility] Attending Dr: Dawn Gamble DO Ordering Physician: Dawn Gamble DO Date of Service: 01/25/25 Procedure(s): XR lumbar spine 2-3V Accession Number(s): [id number] cc: Anupama Black; Dawn Gamble DO Reason [...] 01/25/25 1510 DD/ 1426 TD/TT: 01/25/25 1430 Public Health Microbiologist: Procedure Note Donotuseinterpreter, Image - 01/25/[address] [address] XRay Report Signed Patient: Iraida Basilio [facility]#: [id number] : 1985Acct:[id number] Age/Sex: 39 / FADM Date: 01/25/25 Loc: HO.[facility]X Attending Dr: Dawn Gamble DO Ordering Physician: Dawn Gamble DO Date of Service: 01/25/25 Procedure(s): XR lumbar spine 2-3V Accession Number(s): [id number] cc: Anupama Black; Dawn Gamble DO Reason [...] 01/25/25 1510 DD/ 1426 TD/TT: 01/25/25 1430 Public Health Microbiologist: Dawn Gamble DO IMG XR PROCEDURES Edited Res ult - Final * XR Thoracic Spine 2 Views (01/25/2025 2:24 PM EDT) Anatomical Region Laterality Modality Spine, T-spine Radiographic Meghann ging 01/25/2025 2:24 PM EDT Narrative 01/25/2025 3:10 PM EDT [address] [address] XRay Report Signed Patient: Iraida Basilio MR#: [id number] : 1985 Acct:[id number] Age/Sex: 39 / F ADM Date: 01/25/25 Loc: HO.[facility] Attending Dr: Dawn Gamble DO Ordering Physician: Dawn Gamble DO Date of Service: 01/25/25 Procedure(s): XR thoracic spine 2V Accession Number(s): [id number] cc: Anupama Black; Dawn Gamble DO Reason [...] Villagomez MD in OV> 01/25/25 1507 DD/ 1424 TD/TT: 01/25/25 1430 Public Health Microbiologist: Procedure Note Donotuseinterpreter, Image - 01/25/2025 [place] [address] XRay Report Signed Patient: Iraida Basilio MMR#: [id number] : 1985Acct:[id number] Age/Sex: 39 / FADM Date: 01/25/25 [facility]: Dawn Gamble DO Ordering Physician: Dawn Gamble DO Date of Service: 01/25/25 Procedure(s): XR thoracic spine 2V Accession Number(s): [id number] cc: Anupama Black; Dawn Gamble DO Reason [...] Villagomez MD in OV> 01/25/25 1507 DD/ 1424 TD/TT: 01/25/25 1430 Public Health Microbiologist: us Dawn Tye DO IMG XR PROCEDURES Edited Res ult - Final * T-SPOT??.TB (12/26/2024 3:13 PM EDT) T Spot TB Negative Negative [facility] Comment:A negative test resu lt [...] as aquantitative test. TS PANEL A 0 [facility] TS PANEL B 0 [facility] Negative Control Passed [facility] Positive Control Passed [facility] Comment:For additional infor earlene, please refer tohttp://education.Carmudi/faq/OOW174(This link is being provided for informational/educational purposes only.)REPORT COMMENT:REC'D AT [facility] TEST WAS PERFORMED AT:[id number] [place] [address]PXWMWEADINO ALVARADO MD,PHD 12/26/2024 3:13 PM EDT 12/26/2024 4:00 PM EDT us Anupama Black MD LAB BLOOD ORDERABLES Final Res ult [facility] [address] [place] [address] [phone] * Albumin, Random Urine W/Creatinine (07/05/2024 2:50 PM EDT) Creatinine, Urine 174.09 mg/dL [facility] Microalbumin Urine 10.0 mg/L [facility] Microalbum Creatinine Ratio Ur 5.7 <30 ug/mg cr [facility] Comment:Albumin/Creatinine R atio Reference Ranges: Normal: < 30 ug/mg creatinine Microalbuminuria: 30 - 300 ug/mg creatinineClinical Albuminuria: > 300 ug/mg creatinine Urine (Urine, Random) 07/05/2024 2:50 PM EDT 07/05/2024 4:19 PM EDT us Anupama Black MD LAB URINE ORDERABLES Final Res ult [facility] [address] [place] [address] [phone] * (ABNORMAL) Lipid Panel, Standard (07/05/2024 2:50 PM EDT) Triglycerides 135 <150 mg/dL [facility] Comment:Desirable Triglyceri de: less than 150 mg/dLBorderline High Triglyceride 150-199 mg/dLHigh Triglyceride: 200-499 mg/dLVery High Triglyceride: greater than or equal to 5OO mg/dL Cholesterol 182 <200 mg/dL [facility] Comment:Desirable Cholestero l: less than 200 mg/dLBorderline High Cholesterol: 200-239 mg/dLHigh Cholesterol: greater than 239 mg/dL LDL Cholesterol Calculated 110(H) <100 mg/dL [facility] Comment:Desirable LDL: less than 100 mg/dLNear Optimal/Above Optimal LDL: 110- 129 mg/dLBorderline High LDL: 130-159 mg/dLHigh LDL: 160-189 mg/dLVery High LDL: greater than or equal to 190 mg/dL HDL Cholesterol 45 >40 mg/dL [facility] Comment:Desirable HDL: great er than 40 mg/dL Note: This HDL assay may give artificially low results in patients with liver disease. Blood Venous blood specimen / Unknown 07/05/2024 2:50 PM EDT 07/05/2024 4:51 PM EDT Anupama Black MD LAB BLOOD ORDERABLES Final Res ult [facility] [address] [place] [phone] * (ABNORMAL) POCT HGB A1C (07/05/2024 [...] PM EST Narrative 04/24/2024 2:20 PM EST [address] [place] [address] Mammography Report Signed Patient: Iraida Basilio MR#: [id number] : 1985 Acct:[id number] Age/Sex: 38 / F ADM Date: 04/12/24 Loc: HO.MAMMO Attending Dr: Vineet Mcrae CNM Ordering Physician: VINEET MCRAE CNM Results: 2 Benign Findings Date of Service: 04/12/24 Follow Up: 1 Year From Orig inal Mammogram Procedure(s): MM tomosynthesis screening BI Accession Number(s): [id number] cc: Felipa Romero SUPERVISOR ELECTRONICS ASSEMBLY; VINEET MCRAE CNM EXAMINATION: MM SCREENING DIGITAL [...] by: Casandra Barrientos DO 04/24/2024 02:17 PM [facility] Dictated By: Casandra Barrientos DO Signed By: <Electronically signed by Casandra Barrientos DO in OV> 04/24/24 1417 DD/ 1210 TD/TT: 04/12/24 1222 Public Health Microbiologist: Procedure Note Donotuseinterpreter, Image - 04/24/2024 [facility] [address] [place] [address] Mammography Report Signed Patient: Iraida Basilio [facility]#: [id number] : 1985Acct:[id number] Age/Sex: 38 / FADM Date: 04/12/24 Loc: HO.MAMMO Attending Dr: Vineet Mcrae CNM Ordering Physician: VINEET MCRAEesults: 2 Benign Findings Date of Service: 04/12/24Follow Up: 1 Year From Orig ina Mammogram Procedure(s): MM tomosynthesis screening BI Accession Number(s): [id number] cc: Felipa Romero SUPERVISOR ELECTRONICS ASSEMBLY; VINEET MCRAE CNM EXAMINATION: MM SCREENING DIGITAL [...] 04/24/24 1417 DD/ 1210 TD/TT: 04/12/24 1222 Public Health Microbiologist: Vineet Mcrae CNM IMG BI PROCEDURES Final R esult * (ABNORMAL) HPV mRNA E6/E7 w/Reflex to HPV Genotypes 16, 18/45 (03/02/2024 12:00 AM EST) us Historical Provider MD LAB CYTOLOGY ORDERABLES F inal Result [facility] [address] [place] [phone] * Pap Smear (03/02/2024 12:00 AM EST) Swab Cervix uteri structure / Unknown 03/02/2024 03/03/2024 10:20 AM EST Narrative [facility] - 03/31/2024 11:42 AM EST ----- ------- Name: Iraida Basilio Age/Sex: 38/F : 1985 Unit#: [id number] Attend Dr: Re03/02/24 Status: PRE REF Location: [facility] Disch: ----- ------- SPEC : [id number] RECD: 03/03/240 STATUS: SAMMI GONZALEZ NUM: [id number] ISADORA: 03/02/24-0000 [facility] DR: VINEET MCRAE CNM ENTERED: 03/03/24 SP TYPE: Pap Smr [facility] DR: ORDERED: Pap Smear THIS IS A [...] ----- ------- END OF REPORT Vineet Mcrae [facility] LAB CYTOLOGY ORDERABLES F inal Result Performing Organization Address City/[facility]/ZIP Co de Phone Number [facility] [address] [place] [address] [phone] * HEPATITIS C AB W/REFL TO HCV RNA, QN, PCR (08/01/2020 11:10 AM EDT) HEPATITIS C ANTIBODY NON-REACT AMAURI NON-REACT AMAURI [facility] INDEX 0.01 <1.00 [facility] Comment: HCV antibody was non-reactive. There is no laboratory evidence of HCV infection. In most cases, no further action is required. However, if recent HCV exposure is suspected, a test for HCV RNA (test code 93926) is suggested. For additional information please refer to http://education.Lyfepoints.SQLstream/faq/UHO85c8 (This link is being provided for informational/ educational purposes only.) 08/01/2020 11:1 0 AM EDT Kelsey CORREIA HISTORICAL/NON ORDERABLE LABS Final Result [facility] [address] * HIV 1/2 ANTIGEN/ANTIBODY,FOURTH GENERATION W/RFL (08/01/2020 11:10 AM EDT) HIV-1/2 ANTIGEN AND ANTIBODIES, 4TH GENERATION W/ REFLEX NON-REACT AMAURI NON-REACT AMAURI [facility] Comment: HIV-1 antigen and HIV-1/HIV-2 [...] purpose. For additional information please refer to http://education.Carmudi/faq/ABM979 (This link is being provided for informational/ educational purposes only.) The performance of this assay has not been clinically validated in patients less than 2 years old. 08/01/2020 11:1 0 AM EDT us Kelsey Alamo [facility] LAB BLOOD ORDERABLES Final Res ult [facility] [address] from Last 3 Months or Most Recently Relevant to Health Maintenance Insurance [facility] C3 R [place] [address] Care Teams Director Non Profit Relationship Specialty Start Date End Date Anupama Black MD [address] [place] [address] [place] [address] PCP - General Family Medicine 12/28/23
--- OUTSIDE RECORDS SUMMARY | 2025-01-25 15:35 | XMS_ITS | Encounter Summary ---
Author Organization [employer] Address [address] [place] [address] 7 [place] [address] Care Team Providers Care Electron Beam Photo Mask Maker Name Role Phone Felipa Romero Primary Care Provider [phone] Anupama Black MD Primary Care Provider [phone] Encounter Details Date Type Department Care Team ([facility] st Contact Info) Description 04/03/2022 Telephone [facility] [address] [place] [address] Felipa Romero FNP [address] [place] [address] Social History Tobacco Use Types Packs/Day Years [...] Questionnaire -2 Score 0 04/03/2022 3:04 PM Kaity Montenegro [place] documented as of this encounter Plan of Treatment Upcoming Encounters Date Type Department Care Team (Late st Contact Info) Description 02/23/2025 10:15 AM EDT Office Visit [facility] [address] [place] [address] Maria Del Rosario Redmond FNP [address] [place] [address] 02/28/2025 10:15 AM EST Procedure Visit [facility] [address] [place] [address] Jocelyn Brito CNM [address] [place] [address] documented as of this encounter Visit Diagnoses Not on filedocumented in this encounter Care Teams Electron Beam Photo Mask Maker Relationship Specialty Start Date End Date Felipa Romero FNP [address] [place] [address] PCP - General Family Medicine 02/12/22 12/27/23 Anupama Black MD [address] [place] [phone] PCP - General Family Medicine 12/28/23 documented as of this encounter
--- OUTSIDE RECORDS SUMMARY | 2025-01-25 15:35 | XMS_ITS | Encounter Summary ---
Author Organization [employer] Address [address] [facility] 7t [place] [address] Care Team Providers Care Supervisor Cytogenetic Laboratory Name Role Phone Anupama Black MD Primary Care Provider [phone] Encounter Details Date Type Department Care Team (Latest Contact Info) Description 01/25/2025 Travel Social History Tobacco Use Types Packs/Day [...] Description 02/23/2025 10:15 AM EDT Office Visit [facility] [address] [place] [address] [place], [place], [facility] [address] [place] [address] 02/28/2025 10:15 AM EST Procedure Visit [address] [address] Jocelyn Brito CNM [address] [place] [address] documented as of this encounter Visit Diagnoses Not on filedocumented in this encounter Additional Health Concerns Assessment Noted Time PHQ-9 Depression Total Score: 9 07/19/19 24 11:43 AM EDT documented as of this encounter Care Teams Supervisor Cytogenetic Laboratory Relationship Specialty Start Date End Date Anupama Black MD [address] [place] [address] PCP - General Family Medicine 12/28/23 documented as of this encounter
--- OUTSIDE RECORDS SUMMARY | 2025-01-25 15:35 | XMS_ITS | Clinical Summary ---
Author Organization [facility] Address [address] [place] [address] Care Team Providers Care Head Buyer Tobacco Name Role Phone Unavailable Primary Care Provider [...]
--- OUTSIDE RECORDS SUMMARY | 2025-01-25 15:35 | XMS_ITS | Encounter Summary ---
Author Organization [employer] Address [address] [facility] 7t [place] [address] Care Team Providers Care Typing Bookkeeper Name Role Phone Anupama Black MD Primary Care Provider Encounter Details Date Type Department Care Team ([facility] st Contact Info) Description 08/21/2024 Orders Only [facility] [address] [place], [place] [phone] Carla Miranda Social History Tobacco Use Types [...] Description 02/23/2025 10:15 AM EDT Office Visit [address] [address] [place], [place], [address] [address] 02/28/2025 10:15 AM EST Procedure Visit [address] [address] Jocelyn Brito CNM [address] [place] [address] documented as of this encounter Procedures Procedure Name Priority Date/Time Associated Diagnosis Comments HPV MRNA E6/E7 REFLEX TO HPV 16, 18/45 Routine 03/02/2024 12:00 AM EST documented in this encounter Results * (ABNORMAL) HPV mRNA E6/E7 w/Reflex to HPV Genotypes 16, 18/45 (03/02/2024 12:00 AM EST) us Historical Provider LAB CYTOLOGY ORDERABLES F inal Result [facility] [address] [place] [phone] documented in this encounter Visit Diagnoses Not on filedocumented in this encounter Additional Health Concerns Assessment Noted Time PHQ-9 Depression Total Score: 9 07/19/19 11:43 AM EDT documented as of this encounter Care Teams Typing Bookkeeper Relationship Specialty Start Date End Date Anupama Black MD [address] [place] [address] PCP - General Family Medicine 12/28/23 documented as of this encounter
== END 2025-01-25 13:56 | disposition home or self-care (01) ==
LOC: HO.HHCX 13:55
PROVIDERS: PCP General Practice; Visit Provider Family Medicine
DX: M54.50 Low back pain, unspecified (principal); M54.9 Dorsalgia, unspecified; M25.561 Pain in right knee; M25.562 Pain in left knee
CPT/HCPCS: 72070; 72100; 73564

== ENCOUNTER → 2025-01-25 13:56 | Outpatient (BNV) | payer MEDICAID, SELFPAY | PROVIDERS: PCP General Practice; Visit Provider Radiology Diagnostic Radiology | DX: M25.562 Pain in left knee (principal); M25.561 Pain in right knee; M54.50 Low back pain, unspecified; M54.6 Pain in thoracic spine; W19.XXXA Unspecified fall, initial encounter; M17.11 Unilateral primary osteoarthritis, right knee; M51.34 Other intervertebral disc degeneration, thoracic region | CPT/HCPCS: 72070; 72100; 73564 ==

== ENCOUNTER 2025-03-20 08:12 | Outpatient (REF) | payer MEDICAID, SELFPAY ==
--- NOTE | ~2025-03-20 | XR_ITS ---
EXAMINATION: XR KNEE 1-2 VIEWS RIGHT, XR KNEE 1-2 VIEWS LEFT HISTORY: M25.569 - Pain in unspecified knee COMPARISON: Comparison is made with the prior examination dated 01/25/2025. FINDINGS: Standing AP views of both knees and additional patellar sunrise views of the bilateral are submitted. Osseous mineralization is normal. The patient is status post left ACL repair. There is no fracture or dislocation. Again seen is mild narrowing of the medial compartments of both knees. There are small osteophytes off the lateral aspects of the patellae. The soft tissues are unremarkable. XR/XR knee RT 2V IMPRESSION: Mild osteoarthritis as described. Electronically signed by: Ho Jacob MD 03/20/2025 09:44 AM JERALD
--- NOTE | ~2025-03-20 | XR_ITS ---
EXAMINATION: XR KNEE 1-2 VIEWS RIGHT, XR KNEE 1-2 VIEWS LEFT HISTORY: M25.569 - Pain in unspecified knee COMPARISON: Comparison is made with the prior examination dated 01/25/2025. FINDINGS: Standing AP views of both knees and additional patellar sunrise views of the bilateral are submitted. Osseous mineralization is normal. The patient is status post left ACL repair. There is no fracture or dislocation. Again seen is mild narrowing of the medial compartments of both knees. There are small osteophytes off the lateral aspects of the patellae. The soft tissues are unremarkable. XR/XR knee LT 2V IMPRESSION: Mild osteoarthritis as described. Electronically signed by: Ho Jacob MD 03/20/2025 09:44 AM JERALD
--- OUTSIDE RECORDS SUMMARY | 2025-03-21 08:26 | XMS_ITS | Clinical Summary ---
Author Organization [employer] Address [address] [facility] 7t [place] [address] Care Team Providers Care Stock Clipper Name Role Phone Anupama Black MD Primary Care Provider [phone] Allergies Active Allergy Reactions Criticality Noted Date [...] mellitus with other specified complication, unspecified whether petroleum terminal plant operator insulin use (HCC) 1 each by Other [...] Description 02/23/2025 2:30 PM EDT Office Visit [facility] [address] [place] [phone] Anupama Black MD Essential hypertension (Primary Dx); Type 2 diabetes mellitus with hyperosmolarity without coma, without long-term current use of insulin (HCC) 02/23/2025 Travel 01/25/2025 1:20 PM EDT Office Visit [facility] [address] [place] [phone] Dawn Gamble DO Acute bilateral low back pain without sciatica (Primary Dx); Acute mid back pain; Acute pain of both knees 01/25/2025 Telephone [facility] [address] [place] [phone] Dawn Gamble DO Results 01/25/2025 Travel 01/23/[address] [address] Anupama Black MD Medication Question; Appointment Request 12/26/2024 Telephone [facility] [address] [place] [address] Sowmya Rivers, clinical medical transcriptionist Orders 12/21/2024 Telephone [facility] [address] [place] [address] Jaylene Philip MA from Last 3 Months [...] mellitus with other specified complication, unspecified whether usp insulin use (CMS/HCC) LIPID PANEL, STANDARD Routine 07/05/2024 2:50 PM EDT Type 2 diabetes mellitus with other specified complication, unspecified whether usp insulin use (CMS/HCC) POCT GLYCATED HEMOGLOBIN, TOTAL Routine 07/05/2024 2:19 PM EDT Type 2 diabetes mellitus with other specified complication, unspecified whether usp insulin use (CMS/HCC) BI MAMMOGRAM SCREENING TOMOSYNTHESIS [...] Laterality Modality Lower Extremities, Knee Right Radiogra [facility] Imaging 01/25/2025 2:30 PM EDT Narrative 01/25/2025 3:12 PM EDT [address] [address] XRay Report Signed Patient: Iraida Basilio MR#: [id number] : 1985 Acct:[id number] Age/Sex: 39 / F ADM Date: 01/25/25 Loc: HO.HHCX Attending Dr: Dawn Gamble DO Ordering Physician: Dawn Gamble DO Date of Service: 01/25/25 Procedure(s): XR knee RT 4V Accession Number(s): [id number] cc: Anupama Black; Dawn Gamble DO Reason [...] 01/25/25 1509 DD/ 1430 TD/TT: 01/25/25 1430 Top Lifter: Procedure Note Donotuseinterpreter, Image - 01/25/2025 [place] [address] XRay Report Signed Patient: Iraida Basilio [facility]#: [id number] : 1985Acct:[id number] Age/Sex: 39 / FADM Date: 01/25/25 Loc: HO.HHCX Attending Dr: Dawn Gamble DO Ordering Physician: Dawn Gamble DO Date of Service: 01/25/25 Procedure(s): XR knee RT 4V Accession Number(s): [id number] cc: Anupama Black; Dawn Gamble DO Reason [...] OV> 01/25/25 1509 DD/ 1430 TD/TT: 01/25/251429 Top Lifter: Dawn Gamble DO IMG XR PROCEDURES Edited Res ult - Final * XR Knee 4+ Views Left (01/25/2025 2:27 PM EDT) Anatomical Region Laterality Modality Lower Extremities, Knee Left Radiogra phic Imaging 01/25/2025 2:27 PM EDT Narrative 01/25/2025 3:12 PM EDT [address] [address] XRay Report Signed Patient: Iraida Basilio MR#: [id number] : 1985 Acct:[id number] Age/Sex: 39 / F ADM Date: 01/25/25 [facility]: Dawn Gamble DO Ordering Physician: Dawn Gamble DO Date of Service: 01/25/25 Procedure(s): XR knee LT 4V Accession Number(s): [id number] cc: Anupama Black; Dawn Gamble DO Reason [...] 01/25/25 1509 DD/ 1427 TD/TT: 01/25/25 1430 Top Lifter: KATLIN Procedure Note Donotuseinterpreter, Image - 01/25/[address] [address] XRay Report Signed Patient: Iraida Basilio MMR#: [id number] : 1985Acct:[id number] Age/Sex: 39 / FADM Date: 01/25/25 Loc: HO.CX Attending Dr: Dawn Gamble DO Ordering Physician: Dawn Gamble DO Date of Service: 01/25/25 Procedure(s): XR knee LT 4V Accession Number(s): [id number] cc: Anupama Black; Dawn Gamble DO Reason [...] 01/25/25 1509 DD/ 1427 TD/TT: 01/25/25 1430 Top Lifter: KATLIN us Dawn Gamble DO IMG XR PROCEDURES Edited Res ult - Final * XR Lumbar Spine 2-3 Views (01/25/2025 2:26 PM EDT) Anatomical Region Laterality Modality Spine, L-spine Radiographic Meghann ging 01/25/2025 2:26 PM EDT Narrative 01/25/2025 3:12 PM EDT [address] [address] XRay Report Signed Patient: Iraida Basilio MR#: [id number] : 1985 Acct:[id number] Age/Sex: 39 / F ADM Date: 01/25/25 Loc: HO.HHCX Attending Dr: Dawn Gamble DO Ordering Physician: Dawn Gamble DO Date of Service: 01/25/25 Procedure(s): XR lumbar spine 2-3V Accession Number(s): [id number] cc: Anupama Black; Dawn Gamble DO Reason [...] 01/25/25 1510 DD/ 1426 TD/TT: 01/25/25 1430 Top Lifter: Procedure Note Donotuseinterpreter, Image - 01/25/[address] [address] XRay Report Signed Patient: Iraida Basilio MMR#: [id number] : 1985Acct:[id number] Age/Sex: 39 / FADM Date: 01/25/25 Loc: HO.HHCX Attending Dr: Dawn Gamble DO Ordering Physician: Dawn Gamble DO Date of Service: 01/25/25 Procedure(s): XR lumbar spine 2-3V Accession Number(s): [id number] cc: Anupama Black; Dawn Gamble DO Reason [...] 01/25/25 1510 DD/ 1426 TD/TT: 01/25/25 1430 Top Lifter: Dawn Gamble DO IMG XR PROCEDURES Edited Res ult - Final * XR Thoracic Spine 2 Views (01/25/2025 2:24 PM EDT) Anatomical Region Laterality Modality Spine, T-spine Radiographic Meghann ging 01/25/2025 2:24 PM EDT Narrative 01/25/2025 3:10 PM EDT [address] [address] XRay Report Signed Patient: Iraida Basilio MR#: [id number] : 1985 Acct:[id number] Age/Sex: 39 / F ADM Date: 01/25/25 Loc: [facility] Attending Dr: Dawn Gamble DO Ordering Physician: Dawn Gamble DO Date of Service: 01/25/25 Procedure(s): XR thoracic spine 2V Accession Number(s): [id number] cc: Anupama Black; Dawn Gamble DO Reason [...] 01/25/25 1507 DD/ 1424 TD/TT: 01/25/25 1430 Top Lifter: Procedure Note Donotuseinterpreter, Image - 01/25/[address] [address] XRay Report Signed Patient: Iraida Basilio MMR#: [id number] : 1985Acct:[id number] Age/Sex: 39 / FADM Date: 01/25/25 Loc: VANCX Attending Dr: Dawn Gamble DO Ordering Physician: Dawn Gamble DO Date of Service: 01/25/25 Procedure(s): XR thoracic spine 2V Accession Number(s): [id number] cc: Anupama Black; Dawn Gamble DO Reason [...] 01/25/25 1507 DD/ 1424 TD/TT: 01/25/25 1430 Top Lifter: Dawn Gamble DO IMG XR PROCEDURES Edited Res ult - Final * T-SPOT??.TB (12/26/2024 3:13 PM EDT) [facility] T Spot TB Negative Negative [facility] Comment:A negative test resu lt [...] as aquantitative test. TS PANEL A 0 [facility] TS PANEL B 0 [facility] Negative Control Passed [facility] Positive Control Passed [facility] Comment:For additional infor earlene, please refer tohttp://education.EvolveMol/faq/MKC458(This link is being provided for informational/educational purposes only.)REPORT COMMENT:REC'D AT [facility] TEST WAS PERFORMED AT:[email or web address] [id number] [place] [address]BAXODISDINO ALVARADO MD,PHD 12/26/2024 3:13 PM EDT 12/26/2024 4:00 PM EDT us Anupama Black MD LAB BLOOD ORDERABLES Final Res ult Performing Organization Address [facility] de Phone Number [facility] [address] [place] [phone] * Albumin, Random Urine W/Creatinine (07/05/2024 2:50 PM EDT) Creatinine, Urine 174.09 mg/dL [facility] Microalbumin Urine 10.0 mg/L [facility] Microalbum Creatinine Ratio Ur 5.7 <30 ug/mg cr [facility] Comment:Albumin/Creatinine R atio Reference Ranges: Normal: < 30 ug/mg creatinine Microalbuminuria: 30 - 300 ug/mg creatinineClinical Albuminuria: > 300 ug/mg creatinine Urine (Urine, Random) 07/05/2024 2:50 PM EDT 07/05/2024 4:19 PM EDT us Anupama Black MD LAB URINE ORDERABLES Final Res ult Performing Organization Address [facility] Co de Phone Number [facility] [address] [place] [phone] * (ABNORMAL) Lipid Panel, Standard (07/05/2024 2:50 PM EDT) Triglycerides 135 <150 mg/dL [facility] Comment:Desirable Triglyceri de: less than 150 mg/dLBorderline High Triglyceride 150-199 mg/dLHigh Triglyceride: 200-499 mg/dLVery High Triglyceride: greater than or equal to 5OO mg/dL Cholesterol 182 <200 mg/dL [facility] Comment:Desirable Cholestero l: less than 200 mg/dLBorderline High Cholesterol: 200-239 mg/dLHigh Cholesterol: greater than 239 mg/dL LDL Cholesterol Calculated 110(H) <100 mg/dL [facility] Comment:Desirable LDL: less than 100 mg/dLNear Optimal/Above Optimal LDL: 110- 129 mg/dLBorderline High LDL: 130-159 mg/dLHigh LDL: 160-189 mg/dLVery High LDL: greater than or equal to 190 mg/dL HDL Cholesterol 45 >40 mg/dL [facility] Comment:Desirable HDL: great er than 40 mg/dL Note: This HDL assay may give artificially low results in patients with liver disease. Blood Venous blood specimen / Unknown 07/05/2024 2:50 PM EDT 07/05/2024 4:51 PM EDT Anupama Black MD LAB BLOOD ORDERABLES Final Res ult [facility] [address] [place] [phone] * (ABNORMAL) POCT HGB A1C (07/05/2024 2:19 PM EDT) Hemoglobin A1C 7.4(A) 4.0 - 6.0 % QC Media Lot # [id number] Lot# Expiration Date 930 Blood 07/05/2024 2:19 PM EDT Anupama Black MD POINT OF CARE TEST ENTER/EDIT ORDERABLES Final Result * BI Mammogram Screening Tomosynthesis Bilateral (04/12/2024 12:10 PM EST) Anatomical Region Laterality Modality Breast Bilateral Mammography 04/12/2024 12:1 0 PM EST Narrative 04/24/2024 2:20 PM EST [facility] [address] [place] [address] Dr. Barvo, [place] [address] Mammography Report Signed Patient: Iraida Basilio MR#: [id number] : 1985 Acct:[id number] Age/Sex: 38 / F ADM Date: 04/12/24 Loc: HO.MAMMO Attending Dr: Vineet Mcrae CNM Ordering Physician: VINEET MCRAE CNM Results: 2 Benign Findings Date of Service: 04/12/24 Follow Up: 1 Year From Orig ina Mammogram Procedure(s): MM tomosynthesis screening BI Accession Number(s): [id number] cc: Felipa Romero COMBAT SYSTEMS OFFICER; VINEET MCRAE CNM EXAMINATION: MM SCREENING DIGITAL [...] 04/24/24 1417 DD/ 1210 TD/TT: 04/12/24 1222 Top Lifter: Procedure Note Donotuseinterpreter, Image - 04/24/2024 [facility] [address] [place] [address] [place] [address] Mammography Report Signed Patient: Iraida Basilio MMR#: [id number] : 1985Acct:[id number] Age/Sex: 38 / FADM Date: 04/12/24 Loc: HO.MAMMO Attending Dr: Vineet Mcrae CNM Ordering Physician: VINEET MCRAEesults: 2 Benign Findings Date of Service: 04/12/24Follow Up: 1 Year From Orig ina Mammogram Procedure(s): MM tomosynthesis screening BI Accession Number(s): [id number] cc: Felipa Romero COMBAT SYSTEMS OFFICER; VINEET MCRAE CNM EXAMINATION: MM SCREENING DIGITAL [...] by: Casandra Barrientos DO 04/24/2024 02:17 PM [facility] Dictated By: Casandra Barrientos DO Signed By: <Electronically signed by Casandra Barrientos DO in OV> 04/24/24 1417 DD/ 1210 TD/TT: 04/12/24 1222 Top Lifter: Vineet Mcrae CNM IMG BI PROCEDURES Final R esult * (ABNORMAL) HPV mRNA E6/E7 w/Reflex to HPV Genotypes 16, 18/45 (03/02/2024 12:00 AM EST) us Historical Provider MD LAB CYTOLOGY ORDERABLES F inal Result [facility] [address] [place] [phone] * Pap Smear (03/02/2024 12:00 AM EST) Swab Cervix uteri structure / Unknown 03/02/2024 03/03/2024 10:20 AM EST Narrative [facility] - 03/31/2024 11:42 AM EST ----- ------- Name: Iraida Basilio Age/Sex: 38/F : 1985 Unit#: [id number] Attend Dr: Re03/02/24 Status: PRE REF Location: [facility] Disch: ----- ------- SPEC : [id number] RECD: 03/03/24 STATUS: SAMMI GONZALEZ NUM: [id number] ISADORA: 03/02/24- SUBM DR: VINEET MCRAE CNM [...] ----- ------- Signed (signature on file) Katherine Fessenden 03/31/24 1142 ----- ------- END OF REPORT us Vineet Mcrae CNM LAB CYTOLOGY ORDERABLES F inal Result [facility] [address] [place] [phone] * HEPATITIS C AB W/REFL TO HCV RNA, QN, PCR (08/01/2020 11:10 AM EDT) HEPATITIS C ANTIBODY NON-REACT AMAURI NON-REACT AMAURI [facility] INDEX 0.01 <1.00 [facility] Comment: HCV antibody was non-reactive. There is no laboratory evidence of HCV infection. In most cases, no further action is required. However, if recent HCV exposure is suspected, a test for HCV RNA (test code 51519) is suggested. For additional information please refer to http://Quickcue.EvolveMol/faq/BWP47b6 (This link is being provided for informational/ educational purposes only.) 08/01/2020 11:1 0 AM EDT Kelsey Cally MANAGER [facility] HISTORICAL/NON ORDERABLE LABS Final Result Performing Organization Address [facility] de Phone Number [facility] [address] * HIV 1/2 ANTIGEN/ANTIBODY,FOURTH GENERATION W/RFL (08/01/2020 11:10 AM EDT) Pathologist [facility] HIV-1/2 ANTIGEN AND ANTIBODIES, 4TH GENERATION W/ REFLEX NON-REACT AMAURI NON-REACT AMAURI [facility] Comment: HIV-1 antigen and HIV-1/HIV-2 [...] purpose. For additional information please refer to http://Quickcue.EvolveMol/faq/WKQ648 (This link is being provided for informational/ educational purposes only.) The performance of this assay has not been clinically validated in patients less than 2 years old. 08/01/2020 11:1 0 AM EDT Kelsey Cally MANAGER [facility] LAB BLOOD ORDERABLES Final Res ult Performing Organization Address [facility] Co de Phone Number [facility] [address] from Last 3 Months or Most Recently Relevant to Health Maintenance Insurance R [place] BRAVO [facility] C3 R [place]ON BRAVO R [place] BRAVO R [place] BRAVO Care Teams Stock Clipper Relationship Specialty Start Date End Date Anupama Black MD [address] [place] [address] [place] PCP - General Family Medicine 12/28/23
--- OUTSIDE RECORDS SUMMARY | 2025-03-21 08:26 | XMS_ITS | Encounter Summary ---
Author Organization [employer] Address [address] [facility] 7t [place] [address] Care Team Providers Care Clinic Md Associate Name Role Phone Anupama Black MD Primary Care Provider [phone] Encounter Details Date Type Department Care Team ([facility] st Contact Info) Description 08/21/2024 Orders Only [facility] [address] [place], [place] [phone] Carla Miranda Social History Tobacco Use Types [...] Provider LAB CYTOLOGY ORDERABLES F inal Result [facility] [address] [place] [phone] documented in this encounter Visit Diagnoses Not on filedocumented in this encounter Additional Health Concerns Assessment Noted Time PHQ-9 Depression Total Score: 9 07/19/19 24 11:43 AM EDT documented as of this encounter Care Teams Clinic Md Associate Relationship Specialty Start Date End Date Anupama Black MD [address] [place] [phone] PCP - General Family Medicine 12/28/23 documented as of this encounter
--- OUTSIDE RECORDS SUMMARY | 2025-03-21 08:27 | XMS_ITS | Encounter Summary ---
Author Organization [employer] Address [address] [place] [address] 7 [place] [address] Care Team Providers Care Rehabilitation Program Coordinator Name Role Phone Felipa Romero Primary Care Provider [phone] Anupama Black MD Primary Care Provider [phone] Encounter Details Date Type Department Care Team (Late st Contact Info) Description 03/14/2022 Abstract [facility] [address] [place], [place] [phone] Provider, MD Andrew Social History Tobacco Use [...] on filedocumented in this encounter Care Teams Rehabilitation Program Coordinator Relationship Specialty Start Date End Date Felipa Romero FNP [address], [place] [phone] PCP - General Family Medicine 02/12/22 12/27/23 Anupama Black MD [address] [place], [place] [phone] PCP - General Family Medicine 12/28/23 documented as of this encounter
--- OUTSIDE RECORDS SUMMARY | 2025-03-21 08:27 | XMS_ITS | Clinical Summary ---
Author Organization [facility] ity Address [address] [place] [address] Care Team Providers Care Paint Grinder Name Role Phone Unavailable Primary Care Provider [...]
--- OUTSIDE RECORDS SUMMARY | 2025-03-21 08:27 | XMS_ITS | Encounter Summary ---
Author Organization [employer] Address [address] [place] [address] 7 [place] [address] Care Team Providers Care Custodian Manager Name Role Phone Anupama Black MD Primary Care Provider Reason for Visit * Reason Onset Date Comments Medication Question 01/23/2025 Appointment Request 01/23/2025 Encounter Details Date Type Department Care Team ([facility] Contact Info) Description 01/23/2025 Telephone [facility] [address] [place] [address] Anupama Black MD [address] [place], [place] [phone] Medication Question; Appointment Request Social History Tobacco [...] , pt stopped takingmedication Contact pt at [phone] documented in this encounter Plan of Treatment Not on file documented as of this encounter Visit Diagnoses Not on filedocumented in this encounter Additional Health Concerns Assessment Noted Time PHQ-9 Depression Total Score: 9 07/19/19 11:43 AM EDT documented as of this encounter Care Teams Custodian Manager Relationship Specialty Start Date End Date Anupama Black MD [address] [place] [address] PCP - General Family Medicine 12/28/23 documented as of this encounter
--- OUTSIDE RECORDS SUMMARY | 2025-03-21 08:27 | XMS_ITS | Encounter Summary ---
Author Organization [employer] Address [address] [place] [address] 7 [place] [address] Care Team Providers Care Meeting/Event Planner Name Role Phone Felipa Romero Primary Care Provider [phone] Anupama Black MD Primary Care Provider [phone] Encounter Details Date Type Department Care Team ([facility] st Contact Info) Description 04/03/2022 Telephone [facility] [address] [place] [address] Felipa Romero FNP [address] [place] [address] Social History Tobacco Use Types Packs/Day Years [...] on filedocumented in this encounter Care Teams Meeting/Event Planner Relationship Specialty Start Date End Date Felipa Romero FNP [address] [place] [address] PCP - General Family Medicine 02/12/22 12/27/23 Anupama Black MD [address] [place] [address] PCP - General Family Medicine 12/28/23 documented as of this encounter
== END 2025-03-20 08:13 | disposition home or self-care (01) ==
LOC: HO.HOSX 08:12
PROVIDERS: Visit Provider Physician Assistant
DX: M17.0 Bilateral primary osteoarthritis of knee (principal); Z79.899 Other long term (current) drug therapy
CPT/HCPCS: 20610; 73560; 99212; J0665; J1100; J2003

== ENCOUNTER 2025-03-20 09:31 | Outpatient (AMB) | payer MEDICAID, SELFPAY ==
--- NOTE | 2025-03-20 09:47 | A.OFFVIS_ITS ---
Intake Visit Reasons: New Prob - B/L knee pain Intake Note: Iraida is a 39 year old female who presents today for a evaluation of her bilateral knee pain. Hx of left ACL reconstruction 06/16/23 NE. Patient reports off and on pain for about a year. She states that her pain is equal on both sides. Her pain is on the both medial and lateral aspect of the knee. Patient states that her pain is worse when she is walking, bending and going up and down stairs. Patient has tried Tylenol and Advil mild relief and voltaren gel with no relief.. IMPRESSION: No fracture or effusion. Stable postsurgical change from ACL repair. IMPRESSION: Mild osteoarthritis, similar to the prior. Allergies cinnamon Allergy (Intermediate, Verified 03/20/25 09:51) Hives peanut Allergy (Mild, Verified 03/20/25 09:51) Unknown HPI HPI New Prob - B/L knee pain: Details: Ms. Basilio is a 39-year-old female who presents to the office today for evaluation of bilateral knee pain. Patient has a prior history of a left knee ACL reconstruction performed on 06/16/[address] Morse. Patient reports pain that waxes and wanes. She states that both knees are equal and pain. She reports an increase in pain with walking, bending, going up and down stairs. She has tried Tylenol, Advil and topical Voltaren with no relief. COUNT INCLUDES THE [facility] Medical History (Reviewed 01/05/25 @ 14:42 by Anthony Kitchen [facility]) Diabetes Surgical History H/O endoscopy H/O colonoscopy Hx laparoscopic cholecystectomy Hx of breast reduction, elective Social History Are you a primary daycare provider to a significant other at home: No Do you presently have visiting nurse or other home services: No Patient Tobacco Use Status: Never used Tobacco Current occupational status: unemployed Review of Systems Const All systems reviewed & are unremarkable except as noted in HPI and below Physical Exam Const General: cooperative, healthy appearing and no acute distress Resp Effort & Inspection: normal respiratory effort and able to speak in complete sentences Extrem Other: Right/Left knee: Normal to inspection. No ecchymosis, erythema, or joint effusion. Tenderness to palpation along the medial and lateral joint lines bilaterally. Full knee extension and flexion. Negative Jonas's. Negative anterior drawer. NVI. Psych Appearance: grossly normal Mental Status: mental status grossly normal Attitude: cooperative Office Procedures AMB Joint Injection/Aspiration Joint Injection/Aspiration Primary Site: Right Knee Secondary Site: Left Knee Prep: site was prepped using aseptic technique, ethochloride spray was applied and injection warnings given Injected: 40 mg of, Decadron, with 3 mL of, 1% plain Lidocaine, 0.25% Bupivacaine and in the joint Approach Used: anterolateral Procedure: The patient tolerated the procedure well, but had some pain with the injection and there was some relief with the local anesthesia Coding 04368 - Bilateral Large Joint Procedure code (CPT) selection complete Assessment & Plan Assessment & Plan (1) Osteoarthritis of knees, bilateral: Code(s): M17.0 - Bilateral primary osteoarthritis of knee Category: Medical Plan Ms. Basilio is a 39-year-old female who presents to the office today for evaluation of bilateral knee pain. Patient has a prior history of a left knee ACL reconstruction performed on 06/16/[address] Morse. Patient reports pain that waxes and wanes. She states that both knees are equal and pain. She re ports an increase in pain with walking, bending, going up and down stairs. She has tried Tylenol, Advil and topical Voltaren with no relief. The patient was offered a cortisone injection bilateral knees. The patient was explained the risks, benefits, and alternatives to receiving this injection. After receiving consent for the injection, the patient had the procedure done while in the office today. The patient tolerated the procedure well with no complications. The risks, benefits, and alternatives to a corticosteroid injection were discussed with the patient, including the potential benefits of decreased inflammation and pain, improved function, and diagnostic value. Risks were reviewed, including post-injection flare, skin or fat atrophy, transient facial flushing, temporary elevation in blood glucose, bruising, and rare but serious complications such as infection, tendon weakening or rupture, and cartilage damage with repeated injections. Procedure-related discomfort and possible vasovagal symptoms were also explained. Alternatives were reviewed, including NSAIDs, physical therapy, activity modification, bracing, ice/heat, weight management, hyaluronic acid injections when appropriate, PRP or other orthobiologics, oral steroids, surgery depending on pathology, and observation. The patient verbalized understanding and elected to proceed. After receiving consent for the injection, the patient had the procedure done while in the office today. The patient tolerated the procedure well with no complications. Due to the patient?s history of diabetes, they were instructed to monitor their blood glucose level. The patient was informed that they could see a rise in their numbers and if the numbers became too high, they were instructed to call their PCP. Follow-up will be PRN, or sooner if needed Orders: Orders XR knee RT 2V Today M25.569 - Pain in unspecified knee XR knee LT 2V Today M25.569 - Pain in unspecified knee Coding Level of Care Code Est Pt Level 3 (48859) Diagnoses Osteoarthritis of knees, bilateral M17.0 CPT Codes Coding - - Bilateral Large Joint: - Bilateral Large Joint ([id number])
--- OUTSIDE RECORDS SUMMARY | 2025-03-20 11:00 | XMS_ITS | Encounter Summary ---
Author Organization [employer] Address [address] [facility] [address] [place] [address] Care Team Providers Care Business Risk Consultant Name Role Phone Anupama Black MD Primary Care Provider [phone] Encounter Details Date Type Department Care Team ([facility] st Contact Info) Description 08/21/2024 Orders Only [facility] [address] [place], [place] [phone] Carla Miranda Social History Tobacco Use Types [...] Provider LAB CYTOLOGY ORDERABLES F inal Result [facility] [address] [place] [phone] documented in this encounter Visit Diagnoses Not on filedocumented in this encounter Additional Health Concerns Assessment Noted Time PHQ-9 Depression Total Score: 9 07/19/19 24 11:43 AM EDT documented as of this encounter Care Teams Business Risk Consultant Relationship Specialty Start Date End Date Anupama Black MD [address] [place] [id number] PCP - General Family Medicine 12/28/23 documented as of this encounter
--- OUTSIDE RECORDS SUMMARY | 2025-03-20 11:00 | XMS_ITS | Encounter Summary ---
Author Organization [employer] Address [address] [place] [address] [address] [place] [address] Care Team Providers Care Shade Hanger Name Role Phone Anupama Black MD Primary Care Provider [phone] Reason for Visit * Reason Onset Date Comments Medication Question 01/23/2025 Appointment Request 01/23/2025 Encounter Details Date Type Department Care Team ([facility] Contact Info) Description 01/23/2025 Telephone [facility] [address] [place] [address] Anupama Black MD [address] [place], [place] [phone] Medication Question; Appointment Request Social History Tobacco [...] , pt stopped takingmedication Contact pt at [phone] documented in this encounter Plan of Treatment Not on file documented as of this encounter Visit Diagnoses Not on filedocumented in this encounter Additional Health Concerns Assessment Noted Time PHQ-9 Depression Total Score: 9 07/19/19 11:43 AM EDT documented as of this encounter Care Teams Shade Hanger Relationship Specialty Start Date End Date Anupama Black MD [address] [place] [address] PCP - General Family Medicine 12/28/23 documented as of this encounter
--- OUTSIDE RECORDS SUMMARY | 2025-03-20 11:00 | XMS_ITS | Encounter Summary ---
Author Organization [employer] Address [address] [place] [address] [address] [place] [address] Care Team Providers Care Camera Prototyping Engineer Name Role Phone Felipa Romero Primary Care Provider [phone] Anupama Black MD Primary Care Provider [phone] Encounter Details Date Type Department Care Team ([facility] st Contact Info) Description 04/03/2022 Telephone [facility] [address] [place] [address] Felipa Romero FNP [address] [place] [address] Social History Tobacco Use Types Packs/Day Years [...] on filedocumented in this encounter Care Teams Camera Prototyping Engineer Relationship Specialty Start Date End Date Felipa Romero FNP [address] [place] [address] PCP - General Family Medicine 02/12/22 12/27/23 Anupama Black MD [address] [place] [address] PCP - General Family Medicine 12/28/23 documented as of this encounter
--- OUTSIDE RECORDS SUMMARY | 2025-03-20 11:00 | XMS_ITS | Encounter Summary ---
Author Organization [employer] Address [address] [place] [address] [address] [place] [address] Care Team Providers Care Clinic Lpn Name Role Phone Fleipa Romero Primary Care Provider [phone] Anupama Black MD Primary Care Provider [phone] Encounter Details Date Type Department Care Team (Late st Contact Info) Description 03/14/2022 Abstract [facility] MED[facility] [address] [place], [place] [phone] Provider, MD Andrew Social History Tobacco Use [...] on filedocumented in this encounter Care Teams Clinic Lpn Relationship Specialty Start Date End Date Felipa Romero FNP [address] [place], [place] [phone] PCP - General Family Medicine 02/12/22 12/27/23 Anupama Black MD [address] [place], [place] [phone] PCP - General Family Medicine 12/28/23 documented as of this encounter
--- OUTSIDE RECORDS SUMMARY | 2025-03-20 11:00 | XMS_ITS | Clinical Summary ---
Author Organization [email or web address] Address [address] [place] [address] Care Team Providers Care Studio Owner Name Role Phone Anupama Black MD Primary Care Provider [phone] Allergies Active Allergy Reactions Criticality Noted Date Comments Flavoring Agent (Non-Screening) Hives 09/2022 Medications Lancets 28G misc Active diclofenac (Voltaren) 25 MG EC tabletIndicati ons:Right knee injury, initial encounter TAKE 1 TABLET BY MOUTH TWICE A DAY. DO NOT CRUSH, CHEW OR SPLIT. 60 tablet 11 07/02/19 24 Active glucose blood (FREESTYLE LITE) test stripIndicatio ns:Type 2 diabetes mellitus with other specified complication, unspecified whether watermelon harvesting supervisor insulin use (HCC) 1 each by Other route 3 times daily. TEST BLOOD SUGARS 3 TIMES A DAY 100 each 11 01/25/20 24 Active Diclofenac Sodium 1 % gel Apply 2 g topically if needed in the morning, at noon, in the evening, and at bedtime (pain). 150 g 3 01/26/20 25 Active Tirzepatide (Mounjaro) 2.5 MG/0.5ML solution auto-injector Inject 2.5 mg under the skin 1 (one) time per week. 2 mL 2 02/24/20 25 Active escitalopram (Lexapro) 20 MG tablet Take 1 tablet (20 mg) by mouth Once per day. 90 tablet 3 02/27/20 25 Active hydrOXYzine HCl (Atarax) 10 MG tablet Take 1 tablet (10 mg) by mouth every 8 (eight) hours if needed for anxiety. 90 tablet 3 02/27/20 25 Active Alcohol Swabs (Alcohol Prep) pads 2024 Discontinued(T herapy completed) diphenhydrAMIN E (BENADryl) 25 MG tablet 1-2 tab po bid prn rash/pruritus x 4d 15 tablet 11/11/19 24 2024 Discontinued(T herapy completed) betamethasone valerate (Valisone) 0.1 % cream Apply topically if needed in the morning and at bedtime (dryness). 45 g 2 11/11/19 24 2024 Discontinued(T herapy completed) escitalopram (Lexapro) 20 MG tablet Take 20 mg by mouth Once per day. 2024 Discontinued(R eorder (will not trigger notification to Pharmacy)) hydrOXYzine HCl (Atarax) 10 MG tablet Take 10 mg by mouth 1 (one) time. 2024 Discontinued(R eorder (will not trigger notification to Pharmacy)) pantoprazole (ProtoNix) 40 MG EC tablet Take 40 mg by mouth before breakfast. Do not crush, chew, or split. 2024 Discontinued(T herapy completed) senna-docusate sodium (Senokot-S) 8.6-50 MG tablet Take 1 tablet by mouth Once per day. 2024 Discontinued(T herapy completed) buPROPion XL (Wellbutrin XL) 300 MG 24 hr tablet TAKE 1 TABLET BY MOUTH EVERY DAY IN THE MORNING DIRECTED 03/07/20 24 2024 Discontinued(T herapy completed) cloNIDine (Catapres) 0.1 MG tablet TAKE 1 TABLET BY MOUTH AT BEDTIME SLEEP, ANXIETY 11/27/19 24 2024 Discontinued(T herapy completed) Senna-Time 8.6 MG tablet TAKE 2 TABLETS BY MOUTH NEEDED CONSTIPATION 01/24/20 24 2024 Discontinued(T herapy completed) temazepam (Restoril) 7.5 MG capsule TAKE 1 CAPSULE BY MOUTH EVERY NIGHT AT BEDTIME NEEDED INSOMNIA 03/07/20 24 2024 Discontinued(T herapy completed) zolpidem (Ambien) 5 MG tablet take 1 tablet by mouth every night at bedtime as needed for insomnia 12/02/19 24 2024 Discontinued(T herapy completed) levocetirizine (Xyzal) 5 MG tablet TAKE 1 TABLET BY MOUTH EVERY EVENING 90 tablet 3 07/06/19 25 2024 Discontinued(T herapy completed) Dulaglutide 3 MG/0.5ML solution auto-injector Inject 3 mg under the skin 1 (one) time per week. 2 mL 3 07/06/19 25 2024 Discontinued(T herapy completed) lisinopril 2.5 MG tablet Take 1 tablet (2.5 mg) by mouth Once per day. 90 tablet 3 07/06/19 25 2024 Discontinued(T herapy completed) baclofen (Lioresal) 10 MG tablet Take 1 tablet (10 mg) by mouth if needed in the morning, at noon, and at bedtime for muscle spasms. 60 tablet 1 01/26/20 25 2024 Discontinued(T herapy completed) naproxen (Naprosyn) 500 MG tablet Take 1 tablet (500 mg) by mouth if needed in the morning and at bedtime for mild pain. 40 tablet 1 01/26/20 25 2024 Discontinued(T herapy completed) acetaminophen (Tylenol 8 Hour) 650 MG ER tablet Take 1 tablet (650 mg) by mouth every 8 (eight) hours if needed for mild pain. Do not crush, chew, or split. 40 tablet 1 01/26/20 25 2024 Discontinued(T herapy completed) Active Problems Problem Noted Date Diagnosed Date [...] Encounters Date Type Department Care Team Description 02/23/2025 2:30 PM EDT Office Visit [facility] [address] [place] [phone] Anupama Black MD Essential hypertension (Primary Dx); Type 2 diabetes mellitus with hyperosmolarity without coma, without long-term current use of insulin (HCC) 02/23/2025 Travel 01/25/2025 1:20 PM EDT Office Visit [facility] [address] [place] [phone] Dawn Gamble DO Acute bilateral low back pain without sciatica (Primary Dx); Acute mid back pain; Acute pain of both knees 01/25/2025 Telephone [facility] [address] [place] [phone] Dawn Gamble DO Results 01/25/2025 Travel 01/23/[address] [address] Anupama Black MD Medication Question; Appointment Request 12/26/2024 Telephone [facility] [address] [place] [address] Sowmya Rivers, neurosurgery spine physician Orders 12/21/2024 Telephone [facility] [address] [place] [address] Jaylene Philip MA from Last 3 Months Immunizations Immunization Administration [...] Answer Date Recorded Patient Health Questionnaire-9 Score 7 02/23/2025 Patient Health Questionnaire-9 Score 7 02/23/2025 Last PHQ-9: Questionnaire Data Not on file 1 Housing Stability Answer Date Recorded What is [...] Date Recorded Patient Health Questionnaire-2 Score 3 02/23/2025 Internet Access Answer Date Recorded Internet Access [...] Sign Reading Time Taken Comments Blood Pressure 124/80 02/23/2025 2:43 PM EDT Pulse 74 02/23/2025 2:43 PM EDT Temperature 36.3 C (97.3 F) 02/23/2025 2:43 PM EDT Respiratory Rate 20 02/23/2025 2:43 PM EDT Oxygen Saturation 98% 01/25/2025 1:01 PM EDT Inhaled Oxygen Concentration - - Weight 76.8 kg (169 lb 6.4 oz) 02/23/2025 2:43 P M EDT Height 154.9 cm (5' 1 ) 02/23/2025 2:43 PM EDT Body Mass Index 32.01 02/23/2025 2:43 PM EDT Plan of Treatment Health Maintenance Due Date Last Done Comments Disability Screening 1985 Diabetes: Foot Exam 08/21/1993 Alcohol/Substance Use Screening 1995 Family Planning (PISQ) 08/21/1998 HPV Vaccines (2 - 3-dose series) 09/12/2009 08/15/2009 Diabetes: Hemoglobin A1C 10/05/2024 025, 10/15/2023, 07/19/2023, Additional history exists COVID-19 Vaccine ( season) 2024 08/18/2022, 03/24/2021, 09/04/2020, Additional history exists Influenza Vaccine (#1) 2024 02/11/2022, 2020 Eye Exam 02/04/2025 02/04/2023 Cervical Cancer Screening 03/02/2025 HPV/Cotest 03/02/2025 03/02/2024, 02/06/2021 Pap Smear 03/02/2025 03/02/2024, 01/24, 02/06/2021 Mammogram 04/12/2025 04/12/2024 SDOH Screening 06/28/2025 06/28/2024 Diabetes: Urine Protein Screening 07/05/2025 07/05/2024, 08/20/2023, 08/20/2023 Lipid Panel 07/05/2025 07/05/2024, 07/27, 05/15/2022, Additional history exists Depression Screening 02/23/2026 02/23/2025, 02/24/20 Tobacco Screening 02/23/2026 02/23/2025 DTaP/Tdap/Td Vaccines (8 - Td or Tdap) [...] mellitus with other specified complication, unspecified whether retirement insulin use (CMS/HCC) LIPID PANEL, STANDARD Routine 07/05/2024 2:50 PM EDT Type 2 diabetes mellitus with other specified complication, unspecified whether retirement insulin use (CMS/HCC) POCT GLYCATED HEMOGLOBIN, TOTAL Routine 07/05/2024 2:19 PM EDT Type 2 diabetes mellitus with other specified complication, unspecified whether retirement insulin use (CMS/HCC) BI MAMMOGRAM SCREENING TOMOSYNTHESIS [...] Laterality Modality Lower Extremities, Knee Right Radiogra [facility] Imaging 01/25/2025 2:30 PM EDT Narrative 01/25/2025 3:12 PM EDT [address] [address] XRay Report Signed Patient: Iraida Basilio MR#: [id number] : 1985 Acct:[id number] Age/Sex: 39 / F ADM Date: 01/25/25 Loc: HO.HHCX Attending Dr: Dawn Gamble DO Ordering Physician: Dawn Gamble DO Date of Service: 01/25/25 Procedure(s): XR knee RT 4V Accession Number(s): [id number] cc: Anupama Black; Dawn Gamble DO Reason [...] Veto Candelario MD 01/25/2025 03:09 PM EDT RP Dictated By: Veto Candelario MD Signed By: <Electronically signed by Veto Candelario MD in OV> 01/25/25 1509 DD/ 1430 TD/TT: 01/25/25 1430 Associate Professor Of Geography: Procedure Note Donotuseinterpreter, Image - 01/25/2025 [place] [address] XRay Report Signed Patient: Iraida Basilio [facility]#: [id number] : 1985Acct:[id number] Age/Sex: 39 / FADM Date: 01/25/25 Loc: HO.HHCX Attending Dr: Dawn Gamble DO Ordering Physician: Dawn Gamble DO Date of Service: 01/25/25 Procedure(s): XR knee RT 4V Accession Number(s): [id number] cc: Anupama Black; Dawn Gamble DO Reason [...] Veto Candelario MD 01/25/2025 03:09 PM EDT RP Dictated By: Veto Candelario MD Signed By: <Electronically signed by Veto Candelario MD in OV> 01/25/25 1509 DD/ 1430 TD/TT: 01/25/251429 Associate Professor Of Geography: Dawn Gamble DO IMG XR PROCEDURES Edited Res ult - Final * XR Knee 4+ Views Left (01/25/2025 2:27 PM EDT) Anatomical Region Laterality Modality Lower Extremities, Knee Left Radiogra phic Imaging 01/25/2025 2:27 PM EDT Narrative 01/25/2025 3:12 PM EDT [address] [address] XRay Report Signed Patient: Iraida Basilio MR#: [id number] : 1985 Acct:[id number] Age/Sex: 39 / F ADM Date: 01/25/25 [facility]: Dawn Gamble DO Ordering Physician: Dawn Gamble DO Date of Service: 01/25/25 Procedure(s): XR knee LT 4V Accession Number(s): [id number] cc: Anupama Black; Dawn Gamble DO Reason [...] Bren Demarco MD 01/25/2025 03:09 PM EDT RP Dictated By: Bren Demarco MD Signed By: <Electronically signed by Bren Demarco MD in OV> 01/25/25 1509 DD/ 1427 TD/TT: 01/25/25 1430 Associate Professor Of Geography: KATLIN Procedure Note Donotuseinterpreter, Image - 01/25/[address] [address] XRay Report Signed Patient: Iraida Basilio MMR#: [id number] : 1985Acct:[id number] Age/Sex: 39 / FADM Date: 01/25/25 Loc: HO.CX Attending Dr: Dawn Gamble DO Ordering Physician: Dawn Gamble DO Date of Service: 01/25/25 Procedure(s): XR knee LT 4V Accession Number(s): [id number] cc: Anupama Black; Dawn Gamble DO Reason [...] 01/25/25 1509 DD/ 1427 TD/TT: 01/25/25 1430 Associate Professor Of Geography: KATLIN us Dawn Gamble DO IMG XR PROCEDURES Edited Res ult - Final * XR Lumbar Spine 2-3 Views (01/25/2025 2:26 PM EDT) Anatomical Region Laterality Modality Spine, L-spine Radiographic Meghann ging 01/25/2025 2:26 PM EDT Narrative 01/25/2025 3:12 PM EDT [place] [address] XRay Report Signed Patient: Iraida Basilio MR#: [id number] : 1985 Acct:[id number] Age/Sex: 39 / F ADM Date: 01/25/25 Loc: HO.HHCX Attending Dr: Dawn Gamble DO Ordering Physician: Dawn Gamble DO Date of Service: 01/25/25 Procedure(s): XR lumbar spine 2-3V Accession Number(s): [id number] cc: Anupama Black; Dawn Gamble DO Reason [...] 01/25/25 1510 DD/ 1426 TD/TT: 01/25/25 1430 Associate Professor Of Geography: Procedure Note Donotuseinterpreter, Image - 01/25/[address] [address] XRay Report Signed Patient: Iraida Basilio MMR#: [id number] : 1985Acct:[id number] Age/Sex: 39 / FADM Date: 01/25/25 Loc: HO.HHCX Attending Dr: Dawn Gamble DO Ordering Physician: Dawn Gamble DO Date of Service: 01/25/25 Procedure(s): XR lumbar spine 2-3V Accession Number(s): [id number] cc: Anupama Black; Dawn Gamble DO Reason [...] 01/25/25 1510 DD/ 1426 TD/TT: 01/25/25 1430 Associate Professor Of Geography: Dawn Gamble DO IMG XR PROCEDURES Edited Res ult - Final * XR Thoracic Spine 2 Views (01/25/2025 2:24 PM EDT) Anatomical Region Laterality Modality Spine, T-spine Radiographic Meghann ging 01/25/2025 2:24 PM EDT Narrative 01/25/2025 3:10 PM EDT [address] [address] XRay Report Signed Patient: Iraida Basilio MR#: [id number] : 1985 Acct:[id number] Age/Sex: 39 / F ADM Date: 01/25/25 Loc: [facility] Attending Dr: Dawn Gamble DO Ordering Physician: Dawn Gamble DO Date of Service: 01/25/25 Procedure(s): XR thoracic spine 2V Accession Number(s): [id number] cc: Anupama Black; Dawn Gamble DO Reason [...] Sudhakar Villagomez MD 01/25/2025 03:07 PM EDT Dictated By: Sudhakar Villagomez MD Signed By: <Electronically signed by Sudhakar Villagomez MD in OV> 01/25/25 1507 DD/ 1424 TD/TT: 01/25/25 1430 Associate Professor Of Geography: Procedure Note Donotuseinterpreter, Image - 01/25/[address] [address] XRay Report Signed Patient: Iraida Basilio MMR#: [id number] : 1985Acct:[id number] Age/Sex: 39 / FADM Date: 01/25/25 Loc: VANCX Attending Dr: Dawn Gamble DO Ordering Physician: Dawn Gamble DO Date of Service: 01/25/25 Procedure(s): XR thoracic spine 2V Accession Number(s): [id number] cc: Anupama Black; Dawn Gamble DO Reason [...] Sudhakar Villagomez MD 01/25/2025 03:07 PM EDT Dictated By: Sudhakar Villagomez MD Signed By: <Electronically signed by Sudhakar Villagomez MD in OV> 01/25/25 1507 DD/ 1424 TD/TT: 01/25/25 1430 Associate Professor Of Geography: Dawn Gamble DO IMG XR PROCEDURES Edited Res ult - Final * T-SPOT??.TB (12/26/2024 3:13 PM EDT) [facility] T Spot TB Negative Negative [facility] Comment:A negative test resu lt [...] as aquantitative test. TS PANEL A 0 [facility] TS PANEL B 0 [facility] Negative Control Passed [facility] Positive Control Passed [facility] Comment:For additional infor earlene, please refer tohttp://education.SnapYeti/faq/JDI244(This link is being provided for informational/educational purposes only.)REPORT COMMENT:REC'D AT [facility] TEST WAS PERFORMED AT:[employer] [id number] [place] [address]EDMLTUODINO ALVARADO MD,PHD 12/26/2024 3:13 PM EDT 12/26/2024 4:00 PM EDT us Anupama Black MD LAB BLOOD ORDERABLES Final Res ult Performing Organization Address [facility] de Phone Number [facility] [address] [place] [phone] * Albumin, Random Urine W/Creatinine (07/05/2024 2:50 PM EDT) Creatinine, Urine 174.09 mg/dL [facility] Microalbumin Urine 10.0 mg/L [facility] Microalbum Creatinine Ratio Ur 5.7 <30 ug/mg cr [facility] Comment:Albumin/Creatinine R atio Reference Ranges: Normal: < 30 ug/mg creatinine Microalbuminuria: 30 - 300 ug/mg creatinineClinical Albuminuria: > 300 ug/mg creatinine Urine (Urine, Random) 07/05/2024 2:50 PM EDT 07/05/2024 4:19 PM EDT us Anupama Black MD LAB URINE ORDERABLES Final Res ult Performing Organization Address [facility] Co de Phone Number [facility] [address] [place] [phone] * (ABNORMAL) Lipid Panel, Standard (07/05/2024 2:50 PM EDT) Triglycerides 135 <150 mg/dL [facility] Comment:Desirable Triglyceri de: less than 150 mg/dLBorderline High Triglyceride 150-199 mg/dLHigh Triglyceride: 200-499 mg/dLVery High Triglyceride: greater than or equal to 5OO mg/dL Cholesterol 182 <200 mg/dL [facility] Comment:Desirable Cholestero l: less than 200 mg/dLBorderline High Cholesterol: 200-239 mg/dLHigh Cholesterol: greater than 239 mg/dL LDL Cholesterol Calculated 110(H) <100 mg/dL [facility] Comment:Desirable LDL: less than 100 mg/dLNear Optimal/Above Optimal LDL: 110- 129 mg/dLBorderline High LDL: 130-159 mg/dLHigh LDL: 160-189 mg/dLVery High LDL: greater than or equal to 190 mg/dL HDL Cholesterol 45 >40 mg/dL [facility] Comment:Desirable HDL: great er than 40 mg/dL Note: This HDL assay may give artificially low results in patients with liver disease. Blood Venous blood specimen / Unknown 07/05/2024 2:50 PM EDT 07/05/2024 4:51 PM EDT Anupama Black MD LAB BLOOD ORDERABLES Final Res ult [facility] [address] [place] [phone] * (ABNORMAL) POCT HGB A1C (07/05/2024 2:19 PM EDT) Hemoglobin A1C 7.4(A) 4.0 - 6.0 % QC Media Lot # [id number] Lot# Expiration Date 738 Blood 07/05/2024 2:19 PM EDT Anupama Black MD POINT OF CARE TEST ENTER/EDIT ORDERABLES Final Result * BI Mammogram Screening Tomosynthesis Bilateral (04/12/2024 12:10 PM EST) Anatomical Region Laterality Modality Breast Bilateral Mammography 04/12/2024 12:1 0 PM EST Narrative 04/24/2024 2:20 PM EST [facility] [address] [place] [address] Dr. Bravo, [place] [address] Mammography Report Signed Patient: Iraida Basilio MR#: [id number] : 1985 Acct:[id number] Age/Sex: 38 / F ADM Date: 04/12/24 Loc: HO.MAMMO Attending Dr: Vineet Mcrae CNM Ordering Physician: VINEET MCRAE CNM Results: 2 Benign Findings Date of Service: 04/12/24 Follow Up: 1 Year From Orig ina Mammogram Procedure(s): MM tomosynthesis screening BI Accession Number(s): [id number] cc: Felipa Romero FRONT END SPECIALIST; VINEET MCRAE CNM EXAMINATION: MM SCREENING DIGITAL [...] 04/24/24 1417 DD/ 1210 TD/TT: 04/12/24 1222 Associate Professor Of Geography: Procedure Note Donotuseinterpreter, Image - 04/24/2024 [facility] [address] [place] [address] [place] [address] Mammography Report Signed Patient: Iraida Basilio MMR#: [id number] : 1985Acct:[id number] Age/Sex: 38 / FADM Date: 04/12/24 Loc: HO.MAMMO Attending Dr: Vineet Mcrae CNM Ordering Physician: VINEET MCRAEesults: 2 Benign Findings Date of Service: 04/12/24Follow Up: 1 Year From Orig ina Mammogram Procedure(s): MM tomosynthesis screening BI Accession Number(s): [id number] cc: Felipa Romero FRONT END SPECIALIST; VINEET MCRAE CNM EXAMINATION: MM SCREENING DIGITAL [...] by: Casandra Barrientos DO 04/24/2024 02:17 PM [facility] Dictated By: Casandra Barrientos DO Signed By: <Electronically signed by Casandra Barrientos DO in OV> 04/24/24 1417 DD/ 1210 TD/TT: 04/12/24 1222 Associate Professor Of Geography: Vineet Mcrae CNM IMG BI PROCEDURES Final R esult * (ABNORMAL) HPV mRNA E6/E7 w/Reflex to HPV Genotypes 16, 18/45 (03/02/2024 12:00 AM EST) us Historical Provider MD LAB CYTOLOGY ORDERABLES F inal Result [facility] [address] [place] [phone] * Pap Smear (03/02/2024 12:00 AM EST) Swab Cervix uteri structure / Unknown 03/02/2024 03/03/2024 10:20 AM EST Narrative [facility] - 03/31/2024 11:42 AM EST ----- ------- Name: Iraida Basilio Age/Sex: 38/F : 1985 Unit#: [id number] Attend Dr: Re03/02/24 Status: PRE REF Location: [facility] Disch: ----- ------- SPEC : [id number] RECD: 03/03/24 STATUS: SAMMI GONZALEZ NUM: [id number] ISADORA: 03/02/24- SUBM DR: VINEET MCRAE CNM ENTERED: 03/03/24-1023 SP TYPE: Pap Smr OT DR: ORDERED: Pap Smear THIS IS A CORRECTED REPORT 03/31/24-1134 This is a corrected report. Any previous [...] ----- ------- Signed (signature on file) Katherine Mitchell 03/31/24 1142 ----- ------- END OF REPORT us Vineet Mcrae CNM LAB CYTOLOGY ORDERABLES F inal Result [facility] [address] [place] [phone] * HEPATITIS C AB W/REFL TO HCV RNA, QN, PCR (08/01/2020 11:10 AM EDT) HEPATITIS C ANTIBODY NON-REACT AMAURI NON-REACT AMAURI [facility] INDEX 0.01 <1.00 [facility] Comment: HCV antibody was non-reactive. There is no laboratory evidence of HCV infection. In most cases, no further action is required. However, if recent HCV exposure is suspected, a test for HCV RNA (test code 67159) is suggested. For additional information please refer to http://PA Semi.SnapYeti/faq/JWY60y3 (This link is being provided for informational/ educational purposes only.) 08/01/2020 11:1 0 AM EDT Kelsey Cally FOREST BIOMETRICS PROFESSOR HISTORICAL/NON ORDERABLE LABS Final Result Performing Organization Address [facility] de Phone Number [facility] [address] * HIV 1/2 ANTIGEN/ANTIBODY,FOURTH GENERATION W/RFL (08/01/2020 11:10 AM EDT) Pathologist [facility] HIV-1/2 ANTIGEN AND ANTIBODIES, 4TH GENERATION W/ [...] purpose. For additional information please refer to http://PA Semi.SnapYeti/faq/UTK503 (This link is being provided for informational/ educational purposes only.) The performance of this assay has not been clinically validated in patients less than 2 years old. 08/01/2020 11:1 0 AM EDT Kelsey Cally FOREST BIOMETRICS PROFESSOR LAB BLOOD ORDERABLES Final Res ult Performing Organization Address [facility] Co de Phone Number [facility] [address] from Last 3 Months or Most Recently Relevant to Health Maintenance Insurance R DEVON BRAVO [facility] C3 R DEVON BRAVO R DEVON BRAVO R DEVON BRAVO Care Teams Studio Owner Relationship Specialty Start Date End Date Anupama Black MD [address] [place] [address] [place] PCP - General Family Medicine 12/28/23
--- OUTSIDE RECORDS SUMMARY | 2025-03-20 11:00 | XMS_ITS | Clinical Summary ---
Author Organization [facility] ity Address [address] [place] [address] Care Team Providers Care Dredge Pipe Operator Name Role Phone Unavailable Primary Care [...] series) 08/21/2010 Depression Screening 04/26/2024 COVID-19 Vaccine (1 - 2024-2 6 season) 2024 Influenza Vaccine (#1) 2024 RSV [...]
== END 2025-03-20 10:11 | disposition home or self-care (01) ==
LOC: HO.HOS 09:31
PROVIDERS: PCP General Practice; Visit Provider Physician Assistant
DX: M17.0 Bilateral primary osteoarthritis of knee (principal)
CPT/HCPCS: 20610; 99213

== ENCOUNTER → 2025-03-20 09:32 | Outpatient (BNV) | payer MEDICAID, SELFPAY | PROVIDERS: Visit Provider Radiology Diagnostic Radiology | DX: M17.0 Bilateral primary osteoarthritis of knee (principal) | CPT/HCPCS: 73560 ==